=== PATIENT | male | born 1955 | race Caucasian/White ===

== ENCOUNTER 2018-03-26 08:37 | Inpatient (IN) | payer BC ==
[~2018-03-26 08:37] MED LIST: HEPARIN NA (PORCINE) 5,000 UNITS/ML 1ML VIAL SQ ONE
--- NOTE | 2018-03-26 09:25 | PDOC ---
History of Present Illness - General Chief Complaint: Pain Stated Complaint: RT LEG PAIN Time Seen by Provider: 03/26/18 09:01 History Source: Patient Exam Limitations: No Limitations - History of Present Illness Initial Comments: CHIEF COMPLAINT: 62 y/o afebrile male with PMH HTN and hypothyroidism c/o right lower extremity numbness today. HISTORY OF PRESENT ILLNESS: The patient states he had shoulder surgery 6 weeks ago. He has been going to and has been doing well. He states all weekend he 's been walking and has been fine. He states this morning he had a right thigh cramp and then his right lower leg became very cold and numb. He denies calf pain, fever, trauma to leg, redness/swelling/streaking to right LE, cough, hemoptysis, CP, SOB, recent airplane travel. Vital signs on arrival are notable for O2 sat of 96% on RA. REVIEW OF SYSTEMS: GENERAL/CONSTITUTIONAL: No fever/chills. No weakness. No weight change. HEAD, EYES, EARS, NOSE AND THROAT: No change in vision. No ear pain or discharge. No sore throat. CARDIOVASCULAR: No chest pain or shortness of breath. RESPIRATORY: No cough, wheezing, or hemoptysis. GASTROINTESTINAL: No nausea, vomiting, diarrhea. GENITOURINARY: No dysuria, frequency, or change in urination. MUSCULOSKELETAL: +right LE numbness. No neck or back pain. SKIN: No rash or easy bruising. NEUROLOGIC: No headache, vertigo, loss of consciousness, or loss of sensation. PHYSICAL EXAM: VITAL_SIGNS: within normal limits GENERAL_APPEARANCE: alert, cooperative, no obvious discomfort. MENTAL_STATUS: speech clear, oriented X 3, responds appropriately to questions. NEURO: motor intact and sensory intact in injured extremity. EXTREMITIES: right LE is cool as compared to left LE. Decreased sensation to right LE. No calf pain. Negative Alexander's sign b/l. NO erythema, warmth or streaking to affected extremity. SKIN: warm, dry, good color. Past History - Past Medical History Allergies/Adverse Reactions: Allergies Allergy/AdvReac Type Severity Reaction Status Date / Time No Known Allergies Allergy Verified 03/26/18 08:49 Home Medications: Ambulatory Orders Atorvastatin Ca [Lipitor] 20 mg PO HS 12/16/15 Levothyroxine [Synthroid -] 50 mcg PO DAILY 12/16/15 Aspirin 81 mg PO ASDIR 03/26/18 Cardiac Disorders: Yes (WPW) COPD: No Hypercholesterolemia: Yes Thyroid Disease: Yes (HYPOTHYROID) - Suicide/Smoking/Psychosocial Hx Smoking History: Current some day smoker Have you smoked in the past 12 months: Yes Cigars Per Day: 1 Information on smoking cessation initiated: No Hx Alcohol Use: Yes (SOCIAL) Drug/Substance Use Hx: No Substance Use Type: None *Physical Exam - Vital Signs Last Vital Signs Temp Pulse Resp BP Pulse Ox 97.8 F 84 19 158/113 96 03/26/18 08:49 03/26/18 08:49 03/26/18 08:49 03/26/18 08:49 03/26/18 08:49 ED Treatment Course - RADIOLOGY Radiology Studies Ordered: Category Date Time Status DUPLEX ART. LEGS- LIMITED US [US] Stat Ultrasound 03/26/18 09:06 Ordered DUPLEX VASCUL US-1 LEG [US] Stat Ultrasound 03/26/18 09:06 Ordered Medical Decision Making - Medical Decision Making A/P: 62 y/o male with possible blood clot or arterial occlusion to right LE. Plan is as follows: 1. Arterial doppler right LE 2. Venous doppler right LE Arterial doppler right LE IMPRESSION: Occlusion of multiple arteries of right LE Venous doppler right LE IMPRESSION: DVTs right LE Gave patient his results. Spoke with Dr. Sims and charge nurse Rosalia. Patient will be moved into bed 1 in Main ER for further work up and admission. *DC/Admit/Observation/Transfer Diagnosis at time of Disposition: Arterial occlusion DVT (deep venous thrombosis) Qualifiers: DVT location: lower extremity Affected thrombotic vein of extremity: unspecified vein of extremity Chronicity: acute Laterality: right Qualified Code (s): I82.401 - Acute embolism and thrombosis of unspecified deep veins of right lower extremity - Referrals Referrals: Mitesh Rodriguez MD, MD [Primary Care Provider] - - Patient Instructions - Post Discharge Activity
[2018-03-26] MEDS ORDERED: HEPARIN NA (PORCINE) 5,000 UNITS/ML 1ML VIAL IVPUSH ONE (11:22)
--- NOTE | 2018-03-26 11:22 | PDOC ---
History of Present Illness - General Chief Complaint: Pain Stated Complaint: RT LEG PAIN Time Seen by Provider: 03/26/18 09:01 History Source: Patient Exam Limitations: No Limitations - History of Present Illness Initial Comments: 03/26/18 11:42 62y M hx of htn, hypothyroidism, ?WPW vs afib (sees cardiology, not on a/c), s/ p R shoulder surgery in late january presents with complaint of RLE pain. Pt sates he was fine this weekend, this morning, aruond 7am, he was changing to go t therapy and felt somet ingling and a cramp like pain in his RLE. He tried to walk it off but the pain got worse. The pt notes he sometimes has some palpitations, but that is long standing, n orecent worsening. pt also notes for the past wek he has felt some LOPEZ when abby gup stairs, but attriubted it to being less active than usual since his surgery. Pt denies any current chest pain, sob, cough, hemoptysis, fever chlils, abd pain , back pain. No prior history of DVTs/PEs. Last PO intake was water for meds aroun d7am PMD: Lyo Past History - Past Medical History Allergies/Adverse Reactions: Allergies Allergy/AdvReac Type Severity Reaction Status Date / Time No Known Allergies Allergy Verified 03/26/18 08:49 Home Medications: Ambulatory Orders Atorvastatin Ca [Lipitor] 20 mg PO DAILY 12/16/15 Levothyroxine [Synthroid -] 50 mcg PO DAILY 12/16/15 Aspirin 81 mg PO ASDIR 03/26/18 Metoprolol Tartrate [Lopressor -] 50 mg PO BID 03/26/18 Cardiac Disorders: Yes (WPW) COPD: No Hypercholesterolemia: Yes Thyroid Disease: Yes (HYPOTHYROID) - Suicide/Smoking/Psychosocial Hx Smoking History: Current some day smoker Have you smoked in the past 12 months: Yes Cigars Per Day: 1 Information on smoking cessation initiated: No Hx Alcohol Use: Yes (SOCIAL) Drug/Substance Use Hx: No Substance Use Type: None Review of Systems - Review of Systems Able to Perform ROS?: Yes Comments:: 03/26/18 11:51 Constitutional - no reported Fever, Chills, HEENT: no reported vision changes, sore throat Respiratory: no reported cough, sob, hemoptysis Cardiac: no reported chest pain, palpitations, light headedness, leg swelling Abd/GI: no reported abd pain, nausea, vomiting, blood per rectum, melena, diarrhea : no reported dysuria, frequency, discharge Musculskelatal - +RLE pain no reported back pain, joint swelling skin - no reported bruising, erythema, rash neurological: no reported headache, numbness, focal weakness, tingling, ataxia, hematologic: no reported easy bruising, easy bleeding *Physical Exam - Vital Signs Last Vital Signs Temp Pulse Resp BP Pulse Ox 97.8 F 84 19 158/113 96 03/26/18 08:49 03/26/18 08:49 03/26/18 08:49 03/26/18 08:49 03/26/18 08:49 - Physical Exam Comments: 03/26/18 11:52 GENERAL: The patient is awake, alert, and fully oriented, Nontoxic - in no acute distress., Obese HEAD: Normocephalic, atraumatic. EYES: extraocular movements intact, sclera anicteric, conjunctiva clear. ENT: Normal voice, Moist mucous membranes. NECK: Normal range of motion, supple LUNGS: Breath sounds equal, clear to auscultation bilaterally. No wheezes, no rhonchi, no rales. HEART: irregularly irregular, rapid ABDOMEN: Soft, nontender, No guarding, no rebound. No CVA tenderness EXTREMITIES: RLE is slightly cool to touch, deminshed pulses, hyperemic, delayed cap refil, no calf tenderness, neg homans NEUROLOGICAL: No facial assymetry, Normal speech, PSYCH: Normal mood, normal affect. SKIN: Warm, Dry, normal turgor, Heart Score/ECG Review - ECG Impressions Comment:: 03/26/18 11:53 Twelve-lead EKG was performed and reviewed by me. Irregularly irergular RAte of 116 Impression atrial fibrillation with RVR ED Treatment Course - LABORATORY CBC & Chemistry Diagram: 03/30/18 05:30 03/30/18 05:30 - RADIOLOGY Radiology Studies Ordered: Category Date Time Status CHEST X-RAY PORTABLE* [RAD] Stat Radiology 03/26/18 11:20 Ordered Medical Decision Making - Medical Decision Making 03/26/18 11:53 62-year-old gentleman history of hypertension, hypothyroid, status post recent surgery upgrade from fast track for positive ultrasound noted for arterial as well as venous fibrosis, found to have A. fib on his EKG here. Will start heparin on the patient The case was discussed with Dr. Suggs requests CTA with runoff. The patient is NPO This patient admission for further management 03/26/18 12:36 case dw anabel Rojas, dr. suggs and dr rojas agree with amdssion for further management stable for tele Case discussed in detail with admitting physician including history, physical exam and ancillary studies. Admitting physician has assumed care for the patient, will follow all pending diagnostics and will complete the evaluation and treatment. 03/26/18 12:36 CRITICAL CARE DOCUMENTATION: I spent ~35 minutes of Critical Care time, excluding separately billable procedures, involving high complexity decision making to assess, manipulate and support vital system function(s) to treat single or multiple vital organ system failure and/or to prevent further life threatening deterioration of the patient' s condition. *DC/Admit/Observation/Transfer Diagnosis at time of Disposition: Arterial occlusion DVT (deep venous thrombosis) Qualifiers: DVT location: lower extremity Affected thrombotic vein of extremity: unspecified vein of extremity Chronicity: acute Laterality: right Qualified Code (s): I82.401 - Acute embolism and thrombosis of unspecified deep veins of right lower extremity Atrial fibrillation Qualifiers: Atrial fibrillation type: unspecified Qualified Code(s): I48.91 - Unspecified atrial fibrillation - Discharge Dispostion Condition at time of disposition: Guarded Decision to Admit order: Yes - Referrals - Patient Instructions - Post Discharge Activity
[2018-03-26 11:42] LABS: BASO % 0.8 % (0-2.0); HEMATOCRIT 39.6 % (35.4-49); HEMOGLOBIN 13.6 GM/dL (11.7-16.9); LYMPH % 9.6 % (8-40); MCH 31.9 pg (25.7-33.7); MCHC 34.3 g/dl (32.0-35.9); MEAN CELL VOLUME 92.8 fl (80-96); MEAN PLT VOLUME 8.6 fl (7.5-11.1); MONO % 7.1 % (3.8-10.2); NEUT % 81.5 % (42.8-82.8); PLATELET COUNT 186 K/MM3 (134-434); RBC 4.27 M/mm3 (4.00-5.60); RDW 13.7 % (11.9-15.9); WHITE BLOOD COUNT 10.4 K/mm3 (4.0-10.0)
[2018-03-26] MEDS ORDERED: HEPARIN INFUSION - 25,000 UNITS/500 ML INFUS.BAG IVPB ONE ×2 (11:47→21:19)
[2018-03-26] MEDS ORDERED: HEPARIN NA (PORCINE) 5,000 UNITS/ML 1ML VIAL ONE ×4 (11:47→19:37)
[2018-03-26] MEDS ORDERED: HEPARIN INFUSION - 25,000 UNITS/500 ML INFUS.BAG IVPB SCH ×2 (11:50→21:30)
[2018-03-26 11:54] LABS: INR 1.24 (0.82-1.09)
[2018-03-26 11:56] LABS: ACTIVATED PTT 27.1 SECONDS (25.2-36.5)
[2018-03-26 12:01] LABS: ALBUMIN 3.8 g/dl (3.4-5.0); ANION GAP 5 (8-16); BILIRUBIN,TOTAL 0.6 mg/dL (0.2-1.0); BLOOD UREA NITROGEN 17 mg/dL (7-18); CHLORIDE 105 mmol/L (98-107); CO2 29 mmol/L (21-32); CREATININE 1.2 mg/dL (0.7-1.3); GLUCOSE,RANDOM 111 mg/dL (74-106); POTASSIUM 4.7 mmol/L (3.5-5.1); SGOT/AST 21 U/L (15-37); SGPT/ALT 26 U/L (12-78); SODIUM 139 mmol/L (136-145); TOT PROT 8.1 g/dl (6.4-8.2)
[2018-03-26 12:02] LABS: ALK PHOS 96 U/L (45-117)
--- NOTE | 2018-03-26 12:11 | CON.CARD ---
Consult Consult Specialty:: cardio - History of Present Illness Chief Complaint: R leg pain History of Present Illness: 62 yo male here with pain and coldness in R foot since earlier today. noted above sx's suddenly today, progressively worsened. assctd numbness. also notes incr sob on stairs the past few days at home. no cp. no palpitations. PMH: afib obesity hypothyroidism - Alcohol/Substance Use Hx Alcohol Use: Yes (SOCIAL) - Smoking History Smoking history: Current some day smoker Have you smoked in the past 12 months: Yes Home Medications - Allergies Allergies/Adverse Reactions: Allergies Allergy/AdvReac Type Severity Reaction Status Date / Time No Known Allergies Allergy Verified 03/26/18 08:49 - Home Medications Home Medications: Ambulatory Orders Atorvastatin Ca [Lipitor] 20 mg PO DAILY 12/16/15 Levothyroxine [Synthroid -] 50 mcg PO DAILY 12/16/15 Aspirin 81 mg PO ASDIR 03/26/18 Metoprolol Tartrate [Lopressor -] 50 mg PO BID 03/26/18 Family Disease History - Family Disease History Family History: Denies (no known cmp) Review of Systems - Review of Systems Constitutional: denies: Chills, Fever Eyes: denies: Eye Pain HENT: denies: Nasal Congestion Neck: denies: Stiffness Cardiovascular: denies: Palpitations Respiratory: denies: Orthopnea, PND Gastrointestinal: denies: Diarrhea, Rectal Bleeding Genitourinary: denies: Burning, Hematuria Musculoskeletal: denies: Muscle Pain Integumentary: denies: Rash Neurological: denies: Numbness, Seizure, Syncope Endocrine: denies: Excessive Sweating Hematology/Lymphatic: denies: Excessive Bleeding Vital Signs: Vital Signs Temperature 97.8 F 03/26/18 08:49 Pulse Rate 84 03/26/18 08:49 Respiratory Rate 19 03/26/18 08:49 Blood Pressure 158/113 03/26/18 08:49 O2 Sat by Pulse Oximetry (%) 96 03/26/18 08:49 Constitutional: Yes: No Distress, Obese Eyes: No: Sclera Icterus HENT: No: Nasal Congestion Neck: No: Decreased ROM Respiratory: Yes: CTA Bilaterally. No: Accessory Muscle Use, Rales, Wheezes Gastrointestinal: Yes: Normal Bowel Sounds. No: Distention, Hepatomegaly, Palpable Mass, Tenderness Cardiovascular: Yes: Regular Rate and Rhythm JVD: No Carotid Bruit: No PMI: Non-Displaced Heart Sounds: Yes: S1, S2. No: Gallop Murmur: No: Systolic Murmur, Diastolic Murmur Musculoskeletal: Yes: Other (No kyphosis) Extremities: Yes: Cold (R). No: Cool, Cyanosis Edema: No Peripheral Pulses: 0 Right Dorsalis Pedis, 2+ Left Carotid, 2+ Right Carotid, 2 + Left Doralis Pedis Integumentary: No: Jaundice Neurological: Yes: Alert, Oriented (x3) Psychiatric: No: Agitated - Other Data Labs, Other Data: CBC, BMP 03/26/18 11:20 INR, PTT INR 1.24 (0.82-1.09) H 03/26/18 11:27 Assessment/Plan Echo 02/12: afib; TDS; nl LV size and LVSF (EF at least 55%). RV tds: ? mild dilation, can't assess RVSF. ? nl LA size. valves WNL. mildly dilated ao root ( 3.9 cm) ECG: afib, no path q's; NSTWAs septal leads persistent AF: -poor office f/u in past 2 yrs -remote h/o ? EP study vs ? cardioversion at [facility]--records unable to be obtained by me. pt reports ? WPW history though no EKG evidence ever -EP study ([facility]) repeated--no accessory pathway. no arrhythmia noted on event monitor at that time -meds adjusted per [facility] EP rec.s (longstanding flecainide stopped). -pt presented in rapid AF to office couple of yrs ago, metoprolol increased-- did not f/u -presented for preop eval 01/12 with rapid AF--metopr succinate increased 50 qd to 50 bid -echo with preserved LVEF at that time -pt strongly denied any h/o HTN and bp's had been normal on metoprolol only, hence calculated CHADS VASC was 0--ASA 81 rec'd. -he had not been taking ASA since original rx couple yrs ago--held 01/12 when he had upcoming ortho surgery scheduled -now presenting with acute RLE arterial occlusion--to start AC ([facility] gtt), awaiting vascular eval--presumably this is atheroembolic event, will f/u angiographic findings but doubt severe atherosclerotic process as the etiology here -HRs reasonable (mildly rapid) in ER--cont home metoprolol, observe HR trend DVT: -also with distal SFV and popliteal vein thrombus on duplex -? unprovoked (same day shoulder surgery 02/12) -AC as above -? will need genetic hypercoag w/u as outpt, will defer to heme (will not change mgmt given need for lifelong AC but relevant for family member screening) SOB: -new sob on stairs x2-3 days -r/o PE in pt with new DVT -starting UFH gtt -d/w'd dr zaman in ER--he will order CTA PE protocol -ecg non-ischemic -check troponin, BNP hypothyroidism: -TSH elevated 2015 with me, pt never f/u'd with PMD -was severely elevated on preop labs 01/12--started synthroid with dr schilling -per hospitalist
[2018-03-26] MEDS ORDERED: metoPROLOL SUCCINATE 25 MG TAB.SR.24H (FP) PO SCH ×2 (12:15→22:00)
[2018-03-26 12:56] LABS: N-TERMINAL BNP 2810.58 pg/ml (5-125)
[2018-03-26] MEDS ORDERED: ACETAMINOPHEN 325 MG TABLET (FP) PO PRN ×4 (14:07→22:04)
[2018-03-26] MEDS ORDERED: metoPROLOL SUCCINATE 25 MG TAB.SR.24H (FP) PO ONE (15:20)
--- NOTE | 2018-03-26 16:04 | EKG ---
Test Reason : Blood Pressure : / mmHG Vent. Rate : 116 BPM Atrial Rate : 122 BPM P-R Int : 000 ms QRS Dur : 072 ms QT Int : 300 ms P-R-T Axes : 000 046 016 degrees QTc Int : 417 ms ATRIAL FIBRILLATION WITH RAPID VENTRICULAR RESPONSE LOW VOLTAGE QRS ABNORMAL ECG WHEN COMPARED WITH ECG OF 22-SEP-2008 11:22, ATRIAL FIBRILLATION HAS REPLACED SINUS RHYTHM VENT. RATE HAS INCREASED BY 60 BPM Confirmed by LAURA LOPEZ, RICKEY ([id number]) on 03/26/2018 4:03:37 PM Referred By: Confirmed By:RICKEY SANCHEZ MD
[2018-03-26] MEDS ORDERED: MIDAZOLAM HCL 2 MG/2 ML SINGLE DOSE VIAL ONE (18:19)
[2018-03-26] MEDS ORDERED: PROPOFOL 20 ML ONE (18:19)
[2018-03-26] MEDS ORDERED: ESMOLOL HCL 100,000 MCG/10 ML VIAL ONE (18:41)
[2018-03-26] MEDS ORDERED: ceFAZolin SODIUM 1 GM VIAL ONE (18:55)
[2018-03-26] MEDS ORDERED: ceFAZolin SODIUM 1 GM VIAL IVPB ONE (18:58)
[2018-03-26] MEDS ORDERED: METOPROLOL TARTRATE 5 MG/5 ML VIAL ONE (19:04)
[2018-03-26] MEDS ORDERED: PHENYLEPHRINE HCL 10 MG/1 ML SINGLE DOSE VIAL ONE (19:21)
[2018-03-26] MEDS ORDERED: POVIDONE-IODINE OINTMENT 10% - 28.4 GM TUBE ONE (21:07)
--- NOTE | 2018-03-26 21:21 | OP ---
Operative Note - Note: Operative Date: 03/26/18 Pre-Operative Diagnosis: RLE ischemia Operation: Open thrombectomy right iliac, sfa, Deep profunda artery , with angiogram of right lower extremity. Findings: Embolus removed. Post-Operative Diagnosis: Same as Pre-op Surgeon: Rafi Byrnes Anesthesia: General Estimated Blood Loss (mls): 600 Operative Report Dictated: Yes
[2018-03-26] MEDS ORDERED: HEPARIN NA (PORCINE) 5,000 UNITS/ML 1ML VIAL IVPUSH PRN ×2 (21:25)
[2018-03-26] MEDS: HEPARIN NA (PORCINE) 5,000 UNITS/ML 1ML VIAL IVPUSH PRN ×2 (21:30→23:22)
[2018-03-26] MEDS ORDERED: ONDANSETRON 4 MG/2 ML VIAL IVPUSH PRN (21:32)
--- NOTE | 2018-03-26 21:37 | PROC ---
Procedure Note Procedure: Anesthesiology Arterial Line Insertion Indication: hemodynamic monitoring Procedure performed in OR under [facility]. EtOH prep to right wrist area. Radial pulse palpated. #20 Arrow arterial catheter inserted via Seldinger technique with no resistance. Pulsatile bloodflow noted prior to transducer attachment.Catheter transduced; waveform present but erratic secondary to atrial fibrillation. Dressing placed. No hematoma or other apparent complications noted.
[2018-03-26] MEDS ORDERED: ATORVASTATIN CA 20 MG TABLET (FP) PO SCH (22:00)
[2018-03-26] MEDS ORDERED: CHLORHEXIDINE GLUCONATE 4% CLEANSER FOR DECOLONIZATION TP SCH (22:45)
--- NOTE | 2018-03-26 23:00 | CONSULT ---
Consultation: REQUESTING PROVIDER: CONSULT REQUEST: We have been asked to medically evaluate this patient for ( specify). HISTORY OF PRESENT ILLNESS: The patient is a 62 year old male with a PMH of A.Fib, WPW, hypothyroidism, DVT , morbid obesity, presented to the hospital complaining of severe right lower extremity that started early this morning. The patient states that the pain was 10/10 in severity, cramping in nature, located in the front of his right thigh. His right foot started to feel numb. He tried to walk it out without improvement and decided to come to ER. He was found to have thrombi in the distal right [employer] extending to the ostia of SFA and DFA, occlusive thrombi seen in right TP trunk with occlusions of the right peroneal artery and posterior tibial arteries followed by short segmental reconstitution with single vessel runoff to the foot provided. The patient had open embolectomy with angiogram of right lower extremity. He lost 600 cc of blood, given 1 unit of blood, hemodynamically stable admitted to ICU for monitoring. When I saw the patient, he didn't have any complaints, denied pain, chest pain, SOB. He admitted to have dyspnia on exertion for the past 5 days. PMH: as above PSH: right hip replacement 2008, left shoulder repair 2017 SH: 1 cigar every few months, 1 alcoholic drink everyday, no drugs. 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 REVIEW OF SYSTEMS: CONSTITUTIONAL: Absent: fever, chills, diaphoresis, generalized weakness, malaise, loss of appetite, weight change HEENT: Absent: nasal congestion, difficulty swallowing, mouth swelling, CARDIOVASCULAR: Absent: chest pain, syncope, palpitations, irregular heart rate, lightheadedness , peripheral edema RESPIRATORY: dyspnea with exertion Absent: cough, orthopnea, wheezing, stridor, hemoptysis GASTROINTESTINAL: Absent: abdominal pain, abdominal distension, nausea, vomiting, diarrhea, constipation GENITOURINARY: Absent: dysuria, frequency, urgency, hesitancy, hematuria MUSCULOSKELETAL: Absent: myalgia, arthralgia, joint swelling, back pain, neck pain ENDOCRINE: Absent: unexplained weight gain, unexplained weight loss, NEUROLOGIC: Absent: headache, focal weakness or paresthesias, dizziness PSYCHIATRIC: Absent: anxiety, depression PHYSICAL EXAMINATION Vital Signs - 24 hr 03/26/18 03/26/18 03/26/18 08:49 12:36 14:40 Temperature 97.8 F Pulse Rate 84 Pulse Rate [ 152 H 116 H Left] Respiratory 19 18 Rate Blood Pressure 158/113 Blood Pressure 112/90 [Left Arm] O2 Sat by Pulse 96 100 Oximetry (%) 03/26/18 03/26/18 16:10 18:00 Temperature 98.5 F 98.5 F Pulse Rate 79 100 H Pulse Rate [ Left] Respiratory 18 18 Rate Blood Pressure 126/71 124/84 Blood Pressure [Left Arm] O2 Sat by Pulse 97 Oximetry (%) GENERAL: Awake, alert, and fully oriented, in no acute distress, lying comfortably in bed. HEAD: Normal with no signs of trauma. EYES: Pupils equal, round and reactive to light, extraocular movements intact, sclera anicteric, conjunctiva clear. EARS, NOSE, THROAT: Oropharynx clear without exudates. Moist mucous membranes. NECK: Normal range of motion, supple without lymphadenopathy, JVD, or masses. LUNGS: Breath sounds equal, clear to auscultation bilaterally. No wheezes, and no crackles. No accessory muscle use. HEART: Irregular rate and rhythm, normal S1 and S2 without murmur, rub or gallop. ABDOMEN: Obese, soft, nontender, not distended, normoactive bowel sounds, no guarding, no rebound, no masses. No hepatomegaly or splenomegaly. MUSCULOSKELETAL: Normal range of motion at all joints. No bony deformities or tenderness. UPPER EXTREMITIES: 2+ pulses, warm, well-perfused. No cyanosis. No clubbing. Cap refill <2 seconds. No peripheral edema. LOWER EXTREMITIES: 2+ pulses on left (DP, PT), dopplerable on right side( DP, PT ), warm left foot, cool right foot. No peripheral edema. NEUROLOGICAL: No facial asymmetry, no slurred speech, motor 5/5. PSYCHIATRIC: Cooperative. Good eye contact. Appropriate mood and affect. SKIN: Warm, dry, normal turgor, no rashes, 8 cm scar in the anterior of his left shoulder, well healing. Laboratory Results - last 24 hr 03/26/18 03/26/18 03/26/18 11:20 11:20 11:20 WBC 10.4 H RBC 4.27 Hgb 13.6 Hct 39.6 MCV 92.8 MCH 31.9 MCHC 34.3 RDW 13.7 Plt Count 186 D MPV 8.6 Absolute Neuts (auto) 8.5 Neutrophils % 81.5 Lymphocytes % 9.6 D Monocytes % 7.1 Eosinophils % 1.0 Basophils % 0.8 Nucleated RBC % 0 PT with INR INR PTT (Actin FS) Sodium 139 Potassium 4.7 Chloride 105 Carbon Dioxide 29 Anion Gap 5 L BUN 17 Creatinine 1.2 Creat Clearance w eGFR > 60 Random Glucose 111 H Calcium 9.0 Total Bilirubin 0.6 AST 21 ALT 26 D Alkaline Phosphatase 96 Troponin I < 0.02 B-Natriuretic Peptide 2810.58 H Total Protein 8.1 Albumin 3.8 TSH 1.30 Blood Type A POSITIVE Antibody Screen Negative Crossmatch See Detail 03/26/18 03/26/18 03/26/18 11:20 11:27 18:30 WBC RBC Hgb Hct MCV MCH MCHC RDW Plt Count MPV Absolute Neuts (auto) Neutrophils % Lymphocytes % Monocytes % Eosinophils % Basophils % Nucleated RBC % PT with INR 14.00 H INR 1.24 H PTT (Actin FS) Cancelled 27.1 32.3 Sodium Potassium Chloride Carbon Dioxide Anion Gap BUN Creatinine Creat Clearance w eGFR Random Glucose Calcium Total Bilirubin AST ALT Alkaline Phosphatase Troponin I B-Natriuretic Peptide Total Protein Albumin TSH Blood Type Antibody Screen Crossmatch Active Medications Generic Name Dose Route Start Last Admin Trade Name Freq PRN Reason Stop Dose Admin Acetaminophen 650 mg 03/26/18 22:04 Tylenol - PO Q6H PRN FEVER/PAIN SCALE 1-5 Aspirin 81 mg 03/27/18 10:00 Asa - PO DAILY [facility] Atorvastatin Calcium 20 mg 03/27/18 22:00 Lipitor - PO [facility] Chlorhexidine Gluconate 1 applic 03/26/18 22:45 Hibiclens For Decolonization - TP [facility] Fentanyl 50 mcg 03/26/18 21:32 Sublimaze Injection - IVPUSH [id number] PRN PAIN-PACU ORDER X 4 DOSES ONLY Heparin Sodium (Porcine) 5,000 unit 03/26/18 21:25 Heparin - IVPUSH PRN PRN Heparin Heparin Sodium (Porcine) 1,000 unit 03/26/18 21:25 Heparin - IVPUSH PRN PRN Heparin Heparin Sodium/Dextrose 25,000 units in 500 mls @ 20 mls/hr 03/26/18 21:30 Heparin Infusion - IVPB TITR [facility] Protocol 1,000 UNITS/HR Levothyroxine Sodium 50 mcg 03/27/18 07:00 Synthroid - PO DAILY@0700 [facility] Metoprolol Succinate 75 mg 03/27/18 10:00 Toprol Xl - PO BID [facility] Mupirocin 1 applic 03/26/18 22:45 Bactroban Ointment (For Decolonization) - NS 03/31/18 22:44 BID [facility] Ondansetron HCl 4 mg 03/26/18 21:32 Zofran Injection IVPUSH Q6H PRN NAUSEA AND/OR VOMITING ASSESSMENT/PLAN: The patient is a 62 year old male with a PMH of A.Fib, WPW, hypothyroidism, DVT in January? presented to the hospital complaining of severe right lower extremity that started early this morning. He underwent open thrombectomy of right iliac, sfa, deep profunda artery, with angiogram of right lower extremity, given 1 u of PRBC. Admitted to ICU for monitoring S/p open embolectomy of RLE A.Fib Hypothyroidism Morbid obesity Plan: -as per surgery continue heparin drip, f/u APTT, CBC, stool occult -monitor pulses in right lower extremity Q4h overnight -finishing 1 unit of PRBC, will check CBC in AM -continue home medications; Toprol Xl, ASA and Synthroid, Lipitor -Tylenol for pain -f/u cardiology recommendations Dispo: We will continue to follow the patient. Thank you for this consultative opportunity. Problem List - Problems (1) Arterial occlusion Code(s): I70.90 - UNSPECIFIED ATHEROSCLEROSIS (2) Atrial fibrillation Code(s): I48.91 - UNSPECIFIED ATRIAL FIBRILLATION Qualifiers: Atrial fibrillation type: unspecified Qualified Code(s): I48.91 - Unspecified atrial fibrillation (3) DVT (deep venous thrombosis) Code(s): I82.409 - ACUTE EMBOLISM AND THOMBOS UNSP DEEP VN UNSP LOWER EXTREMITY Qualifiers: DVT location: lower extremity Affected thrombotic vein of extremity: unspecified vein of extremity Chronicity: acute Laterality: right Qualified Code(s): I82.401 - Acute embolism and thrombosis of unspecified deep veins of right lower extremity Visit type - Emergency Visit Emergency Visit: Yes ED Registration Date: 03/26/18 Care time: The patient presented to the Emergency Department on the above date and was hospitalized for further evaluation of their emergent condition. - New Patient This patient is new to me today: Yes Date on this admission: 03/27/18 - Critical Care Critical Care patient: Yes Total Critical Care Time (in minutes): 40 Critical Care Statement: The care of this patient involved high complexity decision making to prevent further life threatening deterioration of the patient 's condition and/or to evaluate & treat vital organ system(s) failure or risk of failure.
[2018-03-26] MEDS: MUPIROCIN 2% TOPICAL OINTMENT FOR DECOLONIZATION NS SCH (23:36)
[2018-03-27] MEDS: HEPARIN NA (PORCINE) 5,000 UNITS/ML 1ML VIAL IVPUSH PRN ×2 (03:50→22:03)
[2018-03-27 06:10] LABS: HEMATOCRIT 33.1 % (35.4-49); HEMOGLOBIN 11.4 GM/dL (11.7-16.9); MCH 31.2 pg (25.7-33.7); MCHC 34.5 g/dl (32.0-35.9); MEAN CELL VOLUME 90.5 fl (80-96); PLATELET COUNT 167 K/MM3 (134-434); RBC 3.66 M/mm3 (4.00-5.60); RDW 14.4 % (11.9-15.9); WHITE BLOOD COUNT 11.6 K/mm3 (4.0-10.0)
[2018-03-27 06:32] LABS: ALBUMIN 2.9 g/dl (3.4-5.0); ANION GAP 8 (8-16); BLOOD UREA NITROGEN 13 mg/dL (7-18); CALCIUM 8.1 mg/dL (8.5-10.1); CHLORIDE 109 mmol/L (98-107); CO2 26 mmol/L (21-32); CREATININE 0.9 mg/dL (0.7-1.3); GLUCOSE,RANDOM 113 mg/dL (74-106); POTASSIUM 4.2 mmol/L (3.5-5.1); SGOT/AST 14 U/L (15-37); SGPT/ALT 19 U/L (12-78); SODIUM 143 mmol/L (136-145); TOT PROT 6.4 g/dl (6.4-8.2)
[2018-03-27 06:33] LABS: ALK PHOS 76 U/L (45-117)
[2018-03-27] MEDS ORDERED: LEVOTHYROXINE NA 50 MCG TABLET (FP) PO SCH ×2 (07:00)
--- NOTE | 2018-03-27 08:13 | PN ---
Progress Note, Physician Chief Complaint: day #1 s/p thropmbectomy - Current Medication List Current Medications: Active Medications Acetaminophen (Tylenol -) 650 mg PO Q6H PRN PRN Reason: FEVER/PAIN SCALE 1-5 Aspirin (Asa -) 81 mg PO DAILY [facility] Atorvastatin Calcium (Lipitor -) 20 mg PO HS [facility] Chlorhexidine Gluconate (Hibiclens For Decolonization -) 1 applic TP HS [facility] Last Admin: 03/26/18 23:36 Dose: 1 applic Heparin Sodium (Porcine) (Heparin -) 5,000 unit IVPUSH PRN PRN PRN Reason: Heparin Last Admin: 03/27/18 03:50 Dose: 5,000 unit Heparin Sodium (Porcine) (Heparin -) 1,000 unit IVPUSH PRN PRN PRN Reason: Heparin Heparin Sodium/Dextrose (Heparin Infusion -) 25,000 units in 500 mls @ 20 mls/ hr IVPB TITR [facility]; Protocol Last Titration: 03/27/18 03:51 Dose: 1,150 units/hr, 23 mls/hr Levothyroxine Sodium (Synthroid -) 50 mcg PO DAILY@0700 [facility] Last Admin: 03/27/18 06:27 Dose: 50 mcg Metoprolol Succinate (Toprol Xl -) 75 mg PO BID [facility] Mupirocin (Bactroban Ointment (For Decolonization) -) 1 applic NS BID [facility] Stop: 03/31/18 22:44 Last Admin: 03/26/18 23:36 Dose: 1 applic - Objective Vital Signs: Vital Signs Temperature 98.4 F 03/27/18 06:00 Pulse Rate 98 H 03/27/18 06:00 Respiratory Rate 18 03/27/18 06:00 Blood Pressure 92/58 03/27/18 06:00 O2 Sat by Pulse Oximetry (%) 96 03/26/18 23:00 Labs: CBC, BMP 03/27/18 05:30 03/27/18 05:30 INR, PTT INR 1.24 (0.82-1.09) H 03/26/18 11:27 Assessment/Plan doing well s/p thrombectomy for ischemic extremity. Minimal pain today - no anesthetic issues.
--- NOTE | 2018-03-27 08:39 | PN ---
Progress Note (short form) - Note Progress Note: surgery POD#1 Open thrombectomy right iliac, sfa, Deep profunda artery , with angiogram of right lower extremity. Patient seen and examined at bedside with no complaints. Patient states his pain is minimal and much improved. He denies any CP, SOB, fever, or chills. Vital Signs Temp 98.4 F 03/27/18 06:00 Pulse 106 H 03/27/18 08:00 Resp 20 03/27/18 08:00 BP 100/67 03/27/18 08:00 Pulse Ox 100 03/27/18 08:00 Intake & Output 03/26/18 03/26/18 03/27/18 11:59 23:59 11:59 Intake Total 1940 249 Output Total 1200 600 Balance 740 -351 Weight 300 lb 300 lb 301 lb 3 oz Intake: IV 1450 149 HEPARIN INFUSION - 25,000 60 units In 500 ml @ 1,000 UNITS/HR 20 mls/hr IVPB TITR [facility] Rx#:[id number] HEPARIN INFUSION - 25,000 40 149 units In 500 ml @ 1,000 UNITS/HR 20 mls/hr IVPB TITR [facility] Rx#:[id number] Oral 440 100 Blood Product 50 Output: Urine 600 600 Das 600 600 Estimated Blood Loss 600 Other: Voiding Method Indwelling Catheter Height 5 ft 9 in 5 ft 9 in Body Mass Index (BMI) 44.3 44.3 Weight Measurement Method Built in [facility] Weight Measurement Method Est/Stated by Patient CBC, BMP 03/27/18 05:30 03/27/18 05:30 PE: A&O x3, NAD unlabored resp on 2L NC right LE: groin incision c/d/i with mahesh insitu, surrounding tissue intact with no erythema, or edema. No evidence of collection or hematoma thigh is soft supple and nontender, leg is warm to the touch with soft compartments and +2 DP pulses Left LE compartments soft supple and non-tender, warm to touch with +2 DP pulse Problem List - Problems (1) Arterial occlusion Assessment/Plan: POD#1 thrombectomy doing well. 1) DVT prophylaxis 2) OOB as tolerated 3) Pain control 4) Plan for prison anticoagulation per cards Evaluation and plan discussed with Dr Byrnes. Code(s): I70.90 - UNSPECIFIED ATHEROSCLEROSIS
--- NOTE | 2018-03-27 09:06 | PN ---
Progress Note (short form) - Note Progress Note: s: feels well, leg pain improved, feels only at incision when moving. no sob but has not been up much o: Vital Signs: Current Medications Generic Name Dose Route Start Last Admin Trade Name Freq PRN Reason Stop Dose Admin Acetaminophen 650 mg 03/26/18 22:04 Tylenol - PO Q6H PRN FEVER/PAIN SCALE 1-5 Aspirin 81 mg 03/27/18 10:00 Asa - PO DAILY [facility] Atorvastatin Calcium 20 mg 03/27/18 22:00 Lipitor - PO HS [facility] Chlorhexidine Gluconate 1 applic 03/26/18 22:45 03/26/18 23:36 Hibiclens For Decolonization - TP 1 applic HS [facility] Administration Heparin Sodium (Porcine) 5,000 unit 03/26/18 21:25 03/27/18 03:50 Heparin - IVPUSH 5,000 unit PRN PRN Administration Heparin Heparin Sodium (Porcine) 1,000 unit 03/26/18 21:25 Heparin - IVPUSH PRN PRN Heparin Heparin Sodium/Dextrose 25,000 units in 500 mls @ 20 mls/hr 03/26/18 21:30 03:51 Heparin Infusion - IVPB 1,150 units/hr TITR [facility] 23 mls/hr Titration Protocol 1,000 UNITS/HR Levothyroxine Sodium 50 mcg 03/27/18 07:00 03/27/18 06:27 Synthroid - PO 50 mcg DAILY@0700 [facility] Administration Metoprolol Succinate 75 mg 03/27/18 10:00 Toprol Xl - PO BID [facility] Mupirocin 1 applic 03/26/18 22:45 03/26/18 23:36 Bactroban Ointment (For Decolonization) - NS 03/31/18 22:44 1 applic BID [facility] Administration Constitutional: Yes: No Distress, Obese Eyes: No: Sclera Icterus HENT: No: Nasal Congestion Neck: No: Decreased ROM Respiratory: Yes: CTA Bilaterally. No: Accessory Muscle Use, Rales, Wheezes Gastrointestinal: Yes: Normal Bowel Sounds. No: Distention, Hepatomegaly, Palpable Mass, Tenderness Cardiovascular: Yes: Regular Rate and Rhythm JVD: No Carotid Bruit: No PMI: Non-Displaced Heart Sounds: Yes: S1, S2. No: Gallop Murmur: No: Systolic Murmur, Diastolic Murmur Musculoskeletal: Yes: Other (No kyphosis) Extremities: Yes: Cold (R). No: Cool, Cyanosis Edema: No Peripheral Pulses: 0 Right Dorsalis Pedis, 2+ Left Carotid, 2+ Right Carotid, 2 + Left Doralis Pedis Integumentary: No: Jaundice Neurological: Yes: Alert, Oriented (x3) Psychiatric: No: Agitated Assessment/Plan Echo 02/12: afib; TDS; nl LV size and LVSF (EF at least 55%). RV tds: ? mild dilation, can't assess RVSF. ? nl LA size. valves WNL. mildly dilated ao root ( 3.9 cm) ECG: afib, no path q's; NSTWAs septal leads persistent AF: - had not been on AC at home, poor follow up, now on heparin gtt and would start NOAC at discharge for AF and DVT if no contraindication - s/p open thrombectomy of R iliac, SFA, deep profunda, and angiogram and is on heparin gtt, likely related to atheroembolic event from afib - metoprolol was increased to 75 mg BID for improved rate control DVT: -also with distal SFV and popliteal vein thrombus on duplex, recent shoulder surgery, on heparin gtt as above -? will need genetic hypercoag w/u as outpt, will defer to heme (will not change mgmt given need for lifelong AC but relevant for family member screening) SOB: -new sob on stairs x2-3 days prior to admission -PE on differential, deferring CTA PE protocol given resp status stable, on heparin gtt hypothyroidism: - on synthroid, manage per primary team
[2018-03-27] MEDS: MUPIROCIN 2% TOPICAL OINTMENT FOR DECOLONIZATION NS SCH (09:32)
[2018-03-27] MEDS ORDERED: metoPROLOL SUCCINATE 25 MG TAB.SR.24H (FP) PO SCH (10:00)
[2018-03-27] MEDS ORDERED: ASPIRIN 81 MG CHEWABLE TABLETS PO SCH ×2 (10:00)
--- NOTE | 2018-03-27 11:25 | HP ---
Admitting History and Physical - Admission Chief Complaint: leg pain History of Present Illness: CHIEF COMPLAINT: 62 y/o afebrile male with PMH HTN and hypothyroidism c/o right lower extremity numbness today. HISTORY OF PRESENT ILLNESS: The patient states he had shoulder surgery 6 weeks ago. He has been going to PT and has been doing well. He states all weekend he 's been walking and has been fine. He states this morning he had a right thigh cramp and then his right lower leg became very cold and numb. He denies calf pain, fever, trauma to leg, redness/swelling/streaking to right LE, cough, hemoptysis, CP, SOB, recent airplane travel. - Smoking History Smoking history: Current some day smoker Have you smoked in the past 12 months: Yes - Alcohol/Substance Use Hx Alcohol Use: Yes (SOCIAL) Home Medications - Allergies Allergies/Adverse Reactions: Allergies Allergy/AdvReac Type Severity Reaction Status Date / Time No Known Allergies Allergy Verified 03/26/18 08:49 - Home Medications Home Medications: Ambulatory Orders Atorvastatin Ca [Lipitor] 20 mg PO DAILY 12/16/15 Levothyroxine [Synthroid -] 50 mcg PO DAILY 12/16/15 Aspirin 81 mg PO ASDIR 03/26/18 Metoprolol Tartrate [Lopressor -] 50 mg PO BID 03/26/18 Physical Examination Vital Signs: Vital Signs Temperature 98.1 F 03/27/18 10:00 Pulse Rate 102 H 03/27/18 10:00 Respiratory Rate 20 03/27/18 10:00 Blood Pressure 92/61 03/27/18 10:00 O2 Sat by Pulse Oximetry (%) 100 03/27/18 08:00 Constitutional: Yes: Calm Cardiovascular: Yes: Pulse Irregular, S1, S2 Respiratory: Yes: CTA Bilaterally Gastrointestinal: Yes: Normal Bowel Sounds, Soft Renal/: Yes: Das Present Extremities: Yes: Other (DP palpable right groin examined) Neurological: Yes: Alert, Oriented Labs: CBC, BMP 03/27/18 05:30 03/27/18 05:30 Imaging - Results Ultrasound: Report Reviewed (DVT In superficial popliteal and femoral veins arterial duplex findings suspicious of right common femoral superficial femoral and posterior tibial artery occulsion) Other: Report Reviewed (large non calicified thrombus in right common femoral artery) Problem List - Problems (1) Arterial occlusion Assessment/Plan: - Note: Operative Date: 03/26/18 Pre-Operative Diagnosis: RLE ischemia Operation: Open thrombectomy right iliac, sfa, Deep profunda artery , with angiogram of right lower extremity. Findings: Embolus removed. Post-Operative Diagnosis: Same as Pre-op Surgeon: Rafi Byrnes Anesthesia: General Estimated Blood Loss (mls): 600 Operative Report Dictated: Yes heparin drip Code(s): I70.90 - UNSPECIFIED ATHEROSCLEROSIS (2) Atrial fibrillation Assessment/Plan: heparin drip metoprolol Code(s): I48.91 - UNSPECIFIED ATRIAL FIBRILLATION Qualifiers: Atrial fibrillation type: unspecified Qualified Code(s): I48.91 - Unspecified atrial fibrillation (3) Hypothyroid Assessment/Plan: on synthroid Code(s): E03.9 - HYPOTHYROIDISM, UNSPECIFIED (4) DVT (deep venous thrombosis) Assessment/Plan: on heparin drip for now will need hypercoaguable work up as outpatient with heme Code(s): I82.409 - ACUTE EMBOLISM AND THOMBOS UNSP DEEP VN UNSP LOWER EXTREMITY Qualifiers: DVT location: lower extremity Affected thrombotic vein of extremity: unspecified vein of extremity Chronicity: acute Laterality: right Qualified Code(s): I82.401 - Acute embolism and thrombosis of unspecified deep veins of right lower extremity
--- NOTE | 2018-03-27 12:04 | OP ---
DATE OF OPERATION: 03/26/2018 PREOPERATIVE DIAGNOSIS: Right lower extremity ischemia. POSTOPERATIVE DIAGNOSIS: Right lower extremity ischemia. PROCEDURE: Open thrombectomy, right iliac artery, right superficial femoral artery, right profunda artery with angiogram of right lower extremity. SURGEON: Rafi Layton DO ANESTHESIA: General. BLOOD LOSS: 600. The patient is a 62-year-old male who comes in in atrial fibrillation to the emergency room with a 5-hour history of right lower extremity pain and with numbness. He had an arterial ultrasound performed, showing no flow in the common femoral artery and the SFA. We then got a CTA, showing that he has clot in his right common femoral artery and right profunda going into the right superficial femoral artery. At this point, it was decided that he would need open thrombectomy. Patient was consented for the procedure, understanding all risks, benefits, and alternatives, then taken to the operating room. Once in the operating room, he was laid on the operative table in supine manner, and he was administered general anesthesia. Thereafter, the areas of the right and left groin were prepped and draped in a sterile surgical manner. The right lower extremity was prepped and draped in a sterile surgical manner as well. Under ultrasound guidance, we were able to visualize the common femoral artery bifurcation on the right side, and that was marked. An incision was drawn over the bifurcation. We then went ahead and used a number-15 blade, and we made a subcentimeter incision. Bovie electrocautery used to control hemostasis, and we would use Bovie electrocautery again through all the subcutaneous tissue and get down to the femoral sheath. Once we got down to the femoral sheath, the femoral sheath was dissected anteriorly and posteriorly, and we were able to dissect out our superficial femoral artery, the profunda, and the common femoral artery. Vessel loops were placed around each to gain control. Next, 5000 units of IV heparin were administered to the patient. We then went ahead and used a number-11 blade and made a transverse incision on the right common femoral artery. We then went ahead and used a number 4 Obdulio and we were able to place the Obdulio into the SFA and clot was removed. Two passes were made in that manner. There was significant clot in the common femoral artery as well, which was then removed using forceps. We then went ahead and placed our Obdulio catheter into the profunda artery and we made 2 passes and significant clot was removed. There was good backbleeding now from the SFA and the deep profunda artery. We then went ahead and opened our inflow and significant clot was removed and there was good flow from the iliac artery coming down now. The clot was removed and sent down to Pathology. At this point, there was no more clot visualized or could be embolectomized. At this point, we used 6-0 Prolene double arm, and we closed the artery in a running fashion. Once the artery was closed, we opened the SFA and the profunda first, then the iliac artery. We then placed a butterfly needle into the common femoral artery and shot an angiogram of the right lower extremity, showing that the common femoral artery, the profunda, and the SFA were patent. Popliteal artery was patent, and patient has 1-vessel runoff going into the anterior tibial artery which goes all the way down into the foot. At this point, we irrigated the wound copiously. Surgicel was placed. Next, 3-0 Vicryl was used in the subcutaneous tissue, was approximated in an interrupted manner, and the skin was closed with skin mahesh. Then 4x4 Tegaderm was placed. The patient tolerated the procedure with no complication. Patient was transferred to the PACU in stable condition, where he had a dopplerable and palpable DP pulse. Patient was now started on IV heparin and will be bridged to Coumadin for his atrial fibrillation. Total blood loss: 600 mL. RAFI LAYTON DO NP/[id number]
--- NOTE | 2018-03-27 13:32 | PN ---
Physical Exam: SUBJECTIVE: Patient seen and examined. no acute events overnight. patient states he is feeling much better. He is no experiencing any pain in his right lower extremity. He denies any CP/SOB/N/V. Estimated blood loss was 600ml. OBJECTIVE: Vital Signs Period Temp Pulse Resp BP Sys/Cooper Pulse Ox Last 24 Hr 97.8 F-98.5 F 79-134 15-23 82-126/58-84 96-100 GENERAL: The patient is awake, alert, and fully oriented, in no acute distress.. NECK: Trachea midline, full range of motion, supple. LUNGS: Breath sounds equal, clear to auscultation bilaterally, no wheezes, no crackles, no accessory muscle use. HEART: Regular rate and rhythm, S1, S2 without murmur, rub or gallop. ABDOMEN: Soft, nontender, nondistended, normoactive bowel sounds, no guarding, no rebound, no hepatosplenomegaly, no masses. EXTREMITIES: RLE warm to touch, palpable pulses, no edema. LLE pulses, no edema NEUROLOGICAL: Cranial nerves II through XII grossly intact. Normal speech, gait not observed. SKIN: Warm, dry, normal turgor, no rashes or lesions noted Laboratory Results - last 24 hr 03/26/18 03/26/18 03/27/18 11:20 18:30 03:00 WBC RBC Hgb Hct MCV MCH MCHC RDW Plt Count MPV PTT (Actin FS) 32.3 29.3 Sodium Potassium Chloride Carbon Dioxide Anion Gap BUN Creatinine Creat Clearance w eGFR Random Glucose Calcium Total Bilirubin AST ALT Alkaline Phosphatase Total Protein Albumin Blood Type A POSITIVE Antibody Screen Negative Crossmatch See Detail 03/27/18 03/27/18 03/27/18 05:30 05:30 09:49 WBC 11.6 H RBC 3.66 L Hgb 11.4 L Hct 33.1 L D MCV 90.5 MCH 31.2 MCHC 34.5 RDW 14.4 Plt Count 167 MPV 9.0 PTT (Actin FS) 41.7 D Sodium 143 Potassium 4.2 Chloride 109 H Carbon Dioxide 26 Anion Gap 8 BUN 13 Creatinine 0.9 Creat Clearance w eGFR > 60 Random Glucose 113 H Calcium 8.1 L Total Bilirubin 1.0 AST 14 L D ALT 19 D Alkaline Phosphatase 76 D Total Protein 6.4 Albumin 2.9 L Blood Type Antibody Screen Crossmatch Active Medications Generic Name Dose Route Start Last Admin Trade Name German PRN Reason Stop Dose Admin Acetaminophen 650 mg 03/26/18 22:04 Tylenol - PO Q6H PRN FEVER/PAIN SCALE 1-5 Aspirin 81 mg 03/27/18 10:00 03/27/18 09:32 Asa - PO 81 mg DAILY PETE Administration Atorvastatin Calcium 20 mg 03/27/18 22:00 Lipitor - PO HS PETE Chlorhexidine Gluconate 1 applic 03/26/18 22:45 03/26/18 23:36 Hibiclens For Decolonization - TP 1 applic HS PETE Administration Heparin Sodium (Porcine) 5,000 unit 03/26/18 21:25 03/27/18 03:50 Heparin - IVPUSH 5,000 unit PRN PRN Administration Heparin Heparin Sodium (Porcine) 1,000 unit 03/26/18 21:25 Heparin - IVPUSH PRN PRN Heparin Heparin Sodium/Dextrose 25,000 units in 500 mls @ 20 mls/hr 03/26/18 21:30 03:51 Heparin Infusion - IVPB 1,150 units/hr TITR PETE 23 mls/hr Titration Protocol 1,000 UNITS/HR Levothyroxine Sodium 50 mcg 03/27/18 07:00 03/27/18 06:27 Synthroid - PO 50 mcg DAILY@0700 PETE Administration Metoprolol Succinate 75 mg 03/27/18 10:00 03/27/18 09:31 Toprol Xl - PO 75 mg BID PETE Administration Mupirocin 1 applic 03/26/18 22:45 03/27/18 09:32 Bactroban Ointment (For Decolonization) - NS 03/31/18 22:44 1 applic BID PETE Administration ASSESSMENT/PLAN: 62 y/o male with PMH of Afib with WPW, hypothyroidism, previous history of DVT presented to the ED with complaints of RLE pain/numbness/cool extremity found to have thrombi in distal R SOLE FILLER extending to R SFA adn DFA; underwent open thrombectomy of right iliac, SFA, and deep profunda artery. Afib: patient likely had arterial thrombus due to afib -patient had not been on AC for Afib -currently on heparin drip and toprol Xl 75 mg BID -had not taken his ASA in quite a while DVT: -found to have DVT of RLE as well -possibly unprovoked or due to recent shoulder surgery? Hypothyroidism: -continue with synthroid F/E/N -BMP in am -na restricted diet dispo : telemetry Problem List - Problems (1) Arterial occlusion Code(s): I70.90 - UNSPECIFIED ATHEROSCLEROSIS (2) Atrial fibrillation Code(s): I48.91 - UNSPECIFIED ATRIAL FIBRILLATION Qualifiers: Atrial fibrillation type: unspecified Qualified Code(s): I48.91 - Unspecified atrial fibrillation (3) DVT (deep venous thrombosis) Code(s): I82.409 - ACUTE EMBOLISM AND THOMBOS UNSP DEEP VN UNSP LOWER EXTREMITY Qualifiers: DVT location: lower extremity Affected thrombotic vein of extremity: unspecified vein of extremity Chronicity: acute Laterality: right Qualified Code(s): I82.401 - Acute embolism and thrombosis of unspecified deep veins of right lower extremity Visit type - Emergency Visit Emergency Visit: Yes ED Registration Date: 03/26/18 Care time: The patient presented to the Emergency Department on the above date and was hospitalized for further evaluation of their emergent condition. - New Patient This patient is new to me today: Yes Date on this admission: 03/27/18 - Critical Care Critical Care patient: Yes Total Critical Care Time (in minutes): 35 Critical Care Statement: The care of this patient involved high complexity decision making to prevent further life threatening deterioration of the patient 's condition and/or to evaluate & treat vital organ system(s) failure or risk of failure.
--- NOTE | 2018-03-27 13:50 | PN ---
Teaching Attending Note Name of Resident: Viri Lucero ATTENDING PHYSICIAN STATEMENT I saw and evaluated the patient. I reviewed the resident's note and discussed the case with the resident. I agree with the resident's findings and plan as documented. SUBJECTIVE: Patient seen and examined in the ICU. POD #1: Open thrombectomy right iliac, SFA, Deep profunda artery , with angiogram of right lower extremity, with embolus removal. Awake and alert. No CP or SOB. Improving symptoms in the RLE. On IV Heparin drip Intake & Output 03/24/18 03/25/18 03/26/18 03/27/18 23:59 23:59 23:59 23:59 Intake Total 1940 389 Output Total 1200 600 Balance 740 -211 Weight 300 lb 301 lb 3 oz Last Vital Signs Temp Pulse Resp BP Pulse Ox 98.1 F 102 H 20 92/61 100 03/27/18 10:00 03/27/18 10:00 03/27/18 10:00 03/27/18 10:00 03/27/18 08:00 Active Medications Acetaminophen (Tylenol -) 650 mg PO Q6H PRN PRN Reason: FEVER/PAIN SCALE 1-5 Aspirin (Asa -) 81 mg PO DAILY [facility] Last Admin: 03/27/18 09:32 Dose: 81 mg Atorvastatin Calcium (Lipitor -) 20 mg PO HS [facility] Chlorhexidine Gluconate (Hibiclens For Decolonization -) 1 applic TP HS [facility] Last Admin: 03/26/18 23:36 Dose: 1 applic Heparin Sodium (Porcine) (Heparin -) 5,000 unit IVPUSH PRN PRN PRN Reason: Heparin Last Admin: 03/27/18 03:50 Dose: 5,000 unit Heparin Sodium (Porcine) (Heparin -) 1,000 unit IVPUSH PRN PRN PRN Reason: Heparin Heparin Sodium/Dextrose (Heparin Infusion -) 25,000 units in 500 mls @ 20 mls/ hr IVPB TITR [facility]; Protocol Last Titration: 03/27/18 03:51 Dose: 1,150 units/hr, 23 mls/hr Levothyroxine Sodium (Synthroid -) 50 mcg PO DAILY@0700 [facility] Last Admin: 03/27/18 06:27 Dose: 50 mcg Metoprolol Succinate (Toprol Xl -) 75 mg PO BID [facility] Last Admin: 03/27/18 09:31 Dose: 75 mg Mupirocin (Bactroban Ointment (For Decolonization) -) 1 applic NS BID PTEE Stop: 03/31/18 22:44 Last Admin: 03/27/18 09:32 Dose: 1 applic GENERAL: Awake, alert, and oriented, NAD HEAD: Normal with no signs of trauma. EYES: Pupils equal, round and reactive to light, extraocular movements intact, sclera anicteric, conjunctiva clear. EARS, NOSE, THROAT: Oropharynx clear without exudates. Moist mucous membranes. NECK: Normal range of motion, supple without lymphadenopathy, JVD, or masses. LUNGS: Breath sounds equal, clear to auscultation bilaterally. No wheezes, and no crackles. No accessory muscle use. HEART: Irregular rate and rhythm, normal S1 and S2 without murmur, rub or gallop. ABDOMEN: Obese, soft, nontender, not distended, normoactive bowel sounds, no guarding, no rebound, no masses. No hepatomegaly or splenomegaly. MUSCULOSKELETAL: Normal range of motion at all joints. No bony deformities or tenderness. UPPER EXTREMITIES: 2+ pulses, warm, well-perfused. No cyanosis. No clubbing. Cap refill <2 seconds. No peripheral edema. LOWER EXTREMITIES: 2+ pulses on left (DP, PT), dopplerable on right side ( DP, PT), warm left foot, cool right foot. No peripheral edema. NEUROLOGICAL: Non-focal PSYCHIATRIC: Cooperative. Good eye contact. Appropriate mood and affect. SKIN: Warm, dry, normal turgor, no rashes, 8 cm scar in the anterior left shoulder Laboratory Results - last 24 hr 03/26/18 03/26/18 03/27/18 11:20 18:30 03:00 WBC RBC Hgb Hct MCV MCH MCHC RDW Plt Count MPV PTT (Actin FS) 32.3 29.3 Sodium Potassium Chloride Carbon Dioxide Anion Gap BUN Creatinine Creat Clearance w eGFR Random Glucose Calcium Total Bilirubin AST ALT Alkaline Phosphatase Total Protein Albumin Blood Type A POSITIVE Antibody Screen Negative Crossmatch See Detail 03/27/18 03/27/18 03/27/18 05:30 05:30 09:49 WBC 11.6 H RBC 3.66 L Hgb 11.4 L Hct 33.1 L D MCV 90.5 MCH 31.2 MCHC 34.5 RDW 14.4 Plt Count 167 MPV 9.0 PTT (Actin FS) 41.7 D Sodium 143 Potassium 4.2 Chloride 109 H Carbon Dioxide 26 Anion Gap 8 BUN 13 Creatinine 0.9 Creat Clearance w eGFR > 60 Random Glucose 113 H Calcium 8.1 L Total Bilirubin 1.0 AST 14 L D ALT 19 D Alkaline Phosphatase 76 D Total Protein 6.4 Albumin 2.9 L Blood Type Antibody Screen Crossmatch Problem List - Problems (1) Arterial occlusion Code(s): I70.90 - UNSPECIFIED ATHEROSCLEROSIS (2) Atrial fibrillation Code(s): I48.91 - UNSPECIFIED ATRIAL FIBRILLATION Qualifiers: Atrial fibrillation type: unspecified Qualified Code(s): I48.91 - Unspecified atrial fibrillation (3) DVT (deep venous thrombosis) Code(s): I82.409 - ACUTE EMBOLISM AND THOMBOS UNSP DEEP VN UNSP LOWER EXTREMITY Qualifiers: DVT location: lower extremity Affected thrombotic vein of extremity: unspecified vein of extremity Chronicity: acute Laterality: right Qualified Code(s): I82.401 - Acute embolism and thrombosis of unspecified deep veins of right lower extremity ASSESSMENT/PLAN: POD #1: Open thrombectomy right iliac, SFA, Deep profunda artery , with angiogram of right lower extremity, with embolus removal. Likely OSAS Morbid obesity Hypothyroidism PLAN: D/W vascular when to transition to oral therapy. Can use NOAC as oral bridge ( should have discussion about use in M Obesity patients) O2 as needed Normal transfusion thresholds No smoking Continue home meds Activity per surgery Will need formal sleep workup after D/C Dr Horta Critical care time spent in reviewing chart, evaluating patient and formulating plan - 36 minutes.
[2018-03-27] MEDS: HEPARIN INFUSION - 25,000 UNITS/500 ML INFUS.BAG IVPB SCH (16:13)
[2018-03-27] MEDS ORDERED: METOPROLOL TARTRATE 5 MG/5 ML VIAL ONE (16:53)
[2018-03-27] MEDS ORDERED: METOPROLOL TARTRATE 5 MG/5 ML VIAL IVPUSH ONE ×2 (17:00→21:18)
[2018-03-27] MEDS: ATORVASTATIN CA 20 MG TABLET (FP) PO SCH (21:19)
[2018-03-27] MEDS ORDERED: ATORVASTATIN CA 20 MG TABLET (FP) PO SCH (22:00)
[2018-03-28] MEDS: metoPROLOL SUCCINATE 25 MG TAB.SR.24H (FP) PO SCH ×3 (00:27→21:00)
[2018-03-28 05:55] LABS: HEMATOCRIT 33.5 % (35.4-49); HEMOGLOBIN 11.5 GM/dL (11.7-16.9); MCH 31.2 pg (25.7-33.7); MCHC 34.3 g/dl (32.0-35.9); MEAN PLT VOLUME 9.1 fl (7.5-11.1); PLATELET COUNT 172 K/MM3 (134-434); RBC 3.68 M/mm3 (4.00-5.60); RDW 14.9 % (11.9-15.9); WHITE BLOOD COUNT 11.6 K/mm3 (4.0-10.0)
[2018-03-28] MEDS: LEVOTHYROXINE NA 50 MCG TABLET (FP) PO SCH (06:19)
[2018-03-28 07:22] LABS: ANION GAP 9 (8-16); BLOOD UREA NITROGEN 14 mg/dL (7-18); CALCIUM 8.2 mg/dL (8.5-10.1); CHLORIDE 107 mmol/L (98-107); CO2 25 mmol/L (21-32); GLUCOSE,RANDOM 100 mg/dL (74-106); POTASSIUM 3.8 mmol/L (3.5-5.1); SODIUM 141 mmol/L (136-145)
--- NOTE | 2018-03-28 08:26 | PN ---
Progress Note, Physician - Current Medication List Current Medications: Active Medications Acetaminophen (Tylenol -) 650 mg PO Q6H PRN PRN Reason: FEVER/PAIN SCALE 1-5 Aspirin (Asa -) 81 mg PO DAILY [facility] Atorvastatin Calcium (Lipitor -) 20 mg PO HS [facility] Last Admin: 03/27/18 21:19 Dose: 20 mg Heparin Sodium (Porcine) (Heparin -) 5,000 unit IVPUSH PRN PRN PRN Reason: Heparin Last Admin: 03/27/18 22:03 Dose: 5,000 unit Heparin Sodium (Porcine) (Heparin -) 1,000 unit IVPUSH PRN PRN PRN Reason: Heparin Heparin Sodium/Dextrose (Heparin Infusion -) 25,000 units in 500 mls @ 20 mls/ hr IVPB TITR [facility]; Protocol Last Titration: 03/28/18 06:49 Dose: 1,550 units/hr, 31 mls/hr Levothyroxine Sodium (Synthroid -) 50 mcg PO DAILY@0700 [facility] Last Admin: 03/28/18 06:19 Dose: 50 mcg Metoprolol Succinate (Toprol Xl -) 75 mg PO BID [facility] Last Admin: 03/28/18 00:27 Dose: Not Given - Objective Vital Signs: Vital Signs Temperature 98.5 F 03/28/18 07:30 Pulse Rate 108 H 03/28/18 07:30 Respiratory Rate 16 03/28/18 07:30 Blood Pressure 104/87 03/28/18 07:30 O2 Sat by Pulse Oximetry (%) 100 03/28/18 07:00 Labs: CBC, BMP 03/28/18 05:30 03/28/18 05:30 INR, PTT INR 1.24 (0.82-1.09) H 03/26/18 11:27 Problem List - Problems (1) Arterial occlusion Assessment/Plan: Operative Date: 03/26/18 Pre-Operative Diagnosis: RLE ischemia Operation: Open thrombectomy right iliac, sfa, Deep profunda artery , with angiogram of right lower extremity. Findings: Embolus removed. Post-Operative Diagnosis: Same as Pre-op Surgeon: Rafi Byrnes Anesthesia: General Estimated Blood Loss (mls): 600 Operative Report Dictated: Yes heparin drip Code(s): I70.90 - UNSPECIFIED ATHEROSCLEROSIS (2) Atrial fibrillation Assessment/Plan: heparin drip metoprolol cardio on board echo Code(s): I48.91 - UNSPECIFIED ATRIAL FIBRILLATION Qualifiers: Atrial fibrillation type: unspecified Qualified Code(s): I48.91 - Unspecified atrial fibrillation (3) DVT (deep venous thrombosis) Assessment/Plan: on heparin drip for now will need hypercoaguable hem consult Code(s): I82.409 - ACUTE EMBOLISM AND THOMBOS UNSP DEEP VN UNSP LOWER EXTREMITY Qualifiers: DVT location: lower extremity Affected thrombotic vein of extremity: unspecified vein of extremity Chronicity: acute Laterality: right Qualified Code(s): I82.401 - Acute embolism and thrombosis of unspecified deep veins of right lower extremity (4) Hypothyroid Assessment/Plan: on synthroid Code(s): E03.9 - HYPOTHYROIDISM, UNSPECIFIED (5) Tachycardia Assessment/Plan: r/o pe cta on ac Code(s): R00.0 - TACHYCARDIA, UNSPECIFIED
[2018-03-28] MEDS ORDERED: PT OWN MED DRAWER 7, Y5N ONE (08:32)
[2018-03-28] MEDS: ASPIRIN 81 MG CHEWABLE TABLETS PO SCH (09:14)
[2018-03-28] MEDS: HEPARIN INFUSION - 25,000 UNITS/500 ML INFUS.BAG IVPB SCH ×3 (09:31→16:55)
--- NOTE | 2018-03-28 09:55 | PN ---
Progress Note (short form) - Note Progress Note: Pt with tachycardia with OOB to chair yesterday. No CP/SOB. Vital Signs Period Temp Pulse Resp BP Sys/Cooper Pulse Ox Last 24 Hr 98.1 F-99 F 96-150 16-34 85-124/61-98 100 GEN: appears comfortable Right groin: dressing changed. Incision c/d/i with mahesh and mild ecchymosis/ thigh is soft. No evidence of hematoma. Palpable DP pulse and PT with doppler. Calf soft/no swelling noted. CBC, BMP 03/28/18 05:30 03/28/18 05:30 INR, PTT INR 1.24 (0.82-1.09) H 03/26/18 11:27 Laboratory Tests 03/28/18 05:30 PTT (Actin FS) 38.6 A/P: 62 yo male Open s/p thrombectomy right iliac, sfa, Deep profunda artery , with angiogram of right lower extremity. Also with DVT to SFV/popliteal in the RLE Plan to continue IV Heparin-adjusted PTT this am for subtheraputic value of 38 D/w medical attending and plan for CTA today to r/o PE OOB to chair as tolerated Discontinue macedo catheter for TOV
--- NOTE | 2018-03-28 10:32 | PN ---
Progress Note (short form) - Note Progress Note: s: no sob cp dizzy. still has leg pain from incision, improving. went for CT chest this AM tele: afib, rate controlled o: Current Medications Generic Name Dose Route Start Last Admin Trade Name Freq PRN Reason Stop Dose Admin Acetaminophen 650 mg 03/27/18 15:27 Tylenol - PO Q6H PRN FEVER/PAIN SCALE 1-5 Aspirin 81 mg 03/28/18 10:00 03/28/18 09:14 Asa - PO 81 mg DAILY PETE Administration Atorvastatin Calcium 20 mg 03/27/18 22:00 03/27/18 21:19 Lipitor - PO 20 mg HS PETE Administration Heparin Sodium (Porcine) 5,000 unit 03/27/18 15:27 03/27/18 22:03 Heparin - IVPUSH 5,000 unit PRN PRN Administration Heparin Heparin Sodium (Porcine) 1,000 unit 03/27/18 15:27 Heparin - IVPUSH PRN PRN Heparin Heparin Sodium/Dextrose 25,000 units in 500 mls @ 20 mls/hr 03/27/18 15:27 09:31 Heparin Infusion - IVPB 1,550 units/hr TITR PETE 31 mls/hr Administration Protocol 1,000 UNITS/HR Levothyroxine Sodium 50 mcg 03/28/18 07:00 03/28/18 06:19 Synthroid - PO 50 mcg DAILY@0700 PETE Administration Metoprolol Succinate 75 mg 03/27/18 22:00 03/28/18 09:14 Toprol Xl - PO 75 mg BID PETE Administration Vital Signs Period Temp Pulse Resp BP Sys/Cooper Pulse Ox Last 24 Hr 98.2 F-99 F 94-150 16-34 85-124/65-98 100 Constitutional: Yes: No Distress, Obese Eyes: No: Sclera Icterus HENT: No: Nasal Congestion Neck: No: Decreased ROM Respiratory: Yes: CTA Bilaterally. No: Accessory Muscle Use, Rales, Wheezes Gastrointestinal: Yes: Normal Bowel Sounds. No: Distention, Hepatomegaly, Palpable Mass, Tenderness Cardiovascular: Yes: Regular Rate and Rhythm JVD: No Carotid Bruit: No PMI: Non-Displaced Heart Sounds: Yes: S1, S2. No: Gallop Murmur: No: Systolic Murmur, Diastolic Murmur Musculoskeletal: Yes: Other (No kyphosis) Extremities: Yes: Cold (R). No: Cool, Cyanosis Edema: No Peripheral Pulses: 0 Right Dorsalis Pedis, 2+ Left Carotid, 2+ Right Carotid, 2 + Left Doralis Pedis Integumentary: No: Jaundice Neurological: Yes: Alert, Oriented (x3) Psychiatric: No: Agitated Assessment/Plan Echo 02/12: afib; TDS; nl LV size and LVSF (EF at least 55%). RV tds: ? mild dilation, can't assess RVSF. ? nl LA size. valves WNL. mildly dilated ao root ( 3.9 cm) ECG: afib, no path q's; NSTWAs septal leads persistent AF: - had not been on AC at home, poor follow up, now on heparin gtt and would start NOAC at discharge for AF and DVT if no contraindication - s/p open thrombectomy of R iliac, SFA, deep profunda, and angiogram and is on heparin gtt, likely related to atheroembolic event from afib - currently on metoprolol 75 mg BID, BP has been running low. if no PE and improvement in BP would consider increase metoprolol to 100 mg BID, contniue current dose for now DVT: -also with distal SFV and popliteal vein thrombus on duplex, recent shoulder surgery, on heparin gtt as above - would consider hypercoagulable workup as outpatient, follow up hematology - CTA PE protocol done this AM, pending SOB: -new sob on stairs x2-3 days prior to admission - CTA PE done this morning, pending hypothyroidism: - on synthroid, manage per primary team
--- NOTE | 2018-03-28 12:40 | CONSULT ---
Consultation: REQUESTING PROVIDER: CONSULT REQUEST: We have been asked to medically evaluate this patient for ( HEMATOLOGY- ONCOLOGY). HISTORY OF PRESENT ILLNESS: 62 Y/O M with pmh of HTN, HLD, afib, morbid obesity , hypothyroidism who came to the hospital on Monday with a chief complaint of cramps, pain and numbness in right leg. He underwent arterial doppler and was found to have arterial occlusion of RLE. Patient was taken for surgery on 03/26 and thrombecomy from right iliac, sfa, Deep profunda artery was done. On CTA chest was done which showed saddle embolism at bifurcation of main pulmonary artery. Patient denies chest pain, dizziness. Patient also reports that from prior week he noticed some difficulty in breathing. Denies trauma to leg. Denies travelling and long sitting Denies change in weight and appetite No h/o cancer. PMH: htn, hld, afib, morbid obesity, wpw syndrome PSH; left shoulder surgery, right hip replacement. Social history: smokes cigar once a week, alcohol occasional. Family history; mother recently diagnosed with ca lung ( unaware of details) No family h/o hypercoagulable state. PHYSICAL EXAMINATION Vital Signs - 24 hr 03/28/18 03/28/18 09:00 10:00 Temperature 98.8 F Pulse Rate 96 H 94 H Respiratory 16 16 Rate Blood Pressure 101/76 115/79 O2 Sat by Pulse Oximetry (%) GENERAL: Awake, alert, and fully oriented, in no acute distress. HEAD: Normal with no signs of trauma. EYES: conjunctiva clear. EARS, NOSE, THROAT: Moist mucous membranes. NECK: Normal range of motion, supple without lymphadenopathy, LUNGS: Breath sounds equal, decrease air entry at bases, No wheezes, and no crackles. HEART: s1s2 normal, no murmur, irregular ABDOMEN: Soft, nontender, not distended, normoactive bowel sounds, no guarding, no rebound, no masses. . LOWER EXTREMITIES: 2+ pulses, warm, well-perfused. No calf tenderness. No peripheral edema. PSYCHIATRIC: Cooperative. SKIN: Warm, dry, Laboratory Results - last 24 hr 03/27/18 03/28/18 03/28/18 20:20 05:30 05:30 WBC 11.6 H RBC 3.68 L Hgb 11.5 L Hct 33.5 L MCV 91.0 MCH 31.2 MCHC 34.3 RDW 14.9 Plt Count 172 MPV 9.1 PTT (Actin FS) 35.0 38.6 Sodium Potassium Chloride Carbon Dioxide Anion Gap BUN Creatinine Creat Clearance w eGFR Random Glucose Calcium Generic Name Dose Route Start Last Admin Trade Name Freq PRN Reason Stop Dose Admin Acetaminophen 650 mg 03/27/18 15:27 Tylenol - PO Q6H PRN FEVER/PAIN SCALE 1-5 Aspirin 81 mg 03/28/18 10:00 03/28/18 09:14 Asa - PO 81 mg DAILY PETE Administration Atorvastatin Calcium 20 mg 03/27/18 22:00 03/27/18 21:19 Lipitor - PO 20 mg HS PETE Administration Heparin Sodium (Porcine) 5,000 unit 03/27/18 15:27 03/27/18 22:03 Heparin - IVPUSH 5,000 unit PRN PRN Administration Heparin Heparin Sodium (Porcine) 1,000 unit 03/27/18 15:27 Heparin - IVPUSH PRN PRN Heparin Heparin Sodium/Dextrose 25,000 units in 500 mls @ 20 mls/hr 03/27/18 15:27 09:31 Heparin Infusion - IVPB 1,550 units/hr TITR PETE 31 mls/hr Administration Protocol 1,000 UNITS/HR Levothyroxine Sodium 50 mcg 03/28/18 07:00 03/28/18 06:19 Synthroid - PO 50 mcg DAILY@0700 PETE Administration Metoprolol Succinate 75 mg 03/27/18 22:00 03/28/18 09:14 Toprol Xl - PO 75 mg BID PETE Administration ASSESSMENT/PLAN: PAD with acute embolic event likely from afib Afib not on AC at home Pulmonary embolism Saddle embolism DVT distal SFV and popliteal vein thrombus Morbid obesity. Hypothyroidism. h/o htn, hld. Plan. Patient has first unprovoked episode of DVT with PE. Patient is on heparin drip with ptt monitoring. Consider starting warfarin after 2 days and bridge with heparin to INR of 2-3. Patient BMI is more then 40 therefore warfarin is AC of choice. Get ECHO to look for RV pressure and dilatation. If patient becomes hemodynamically unstable or ECHO shows increase pressure in RV then consider IR consult For afib pt is on rate control and heparin. Dispo: We will continue to follow the patient. Thank you for this consultative opportunity. Visit type - Emergency Visit Emergency Visit: Yes ED Registration Date: 03/26/18 Care time: The patient presented to the Emergency Department on the above date and was hospitalized for further evaluation of their emergent condition. - New Patient This patient is new to me today: Yes Date on this admission: 03/28/18 - Critical Care Critical Care patient: Yes Total Critical Care Time (in minutes): 45 Critical Care Statement: The care of this patient involved high complexity decision making to prevent further life threatening deterioration of the patient 's condition and/or to evaluate & treat vital organ system(s) failure or risk of failure.
--- NOTE | 2018-03-28 13:11 | PATH ---
Surgical Pathology Report Patient Name: CHANDRAKANT MAIER Med. Rec. #: [id number] /Age/Gender: 1955 (Age: 62) / M Account: [id number] Location: ICU ROUTING CLERK Taken: 03/26/2018 Received: 03/27/2018 Reported: 03/28/2018 Physicians: Rafi Garcia M.D. Specimen(s) Received CLOTS FROM RIGHT FEMORAL ARTERY Clinical History Deep vein thrombosis, atrial fibrillation, lesion of right femoral artery Final Diagnosis FEMORAL ARTERY, RIGHT, PROXIMAL, THROMBECTOMY: ORGANIZED BLOOD CLOT (THROMBUS). Electronically Signed Awa Armstrong M.D. Gross Description Received in formalin labeled "right femoral artery clots" are 3 irregular red-raymond clots measuring in aggregate 2.5 x 1.5 x 0.4 cm. The entire specimen is submitted one cassette. MLSZ/03/27/2018 sangamla/03/27/2018
--- NOTE | 2018-03-28 13:16 | PN ---
Physical Exam: SUBJECTIVE: Patient seen and examined at bedside. During the night, patient was tachycardic with max HR being at 136. He recived a 5mg dose of lopressor and his HR still remained slightly elevated. Patient went for CT of the chest this morning and was found to have a saddle pulmonary embolism. Currently, patient is not experiencing any CP or SOB. OBJECTIVE: Vital Signs Period Temp Pulse Resp BP Sys/Cooper Pulse Ox Last 24 Hr 98.2 F-99 F 92-150 16-34 85-124/65-98 100 GENERAL: The patient is awake, alert, and fully oriented, in no acute distress. LUNGS: Breath sounds equal, clear to auscultation bilaterally, no wheezes, no crackles, no accessory muscle use. HEART: Regular rate and rhythm, S1, S2 without murmur, rub or gallop. ABDOMEN: Soft, nontender, nondistended, normoactive bowel sounds, no guarding, no rebound, no hepatosplenomegaly, no masses. EXTREMITIES: 2+ pulses, warm, well-perfused, no edema. NEUROLOGICAL: Cranial nerves II through XII grossly intact. Normal speech, gait not observed. SKIN: Warm, dry, normal turgor, no rashes or lesions noted Laboratory Results - last 24 hr 03/27/18 03/28/18 03/28/18 20:20 05:30 05:30 WBC 11.6 H RBC 3.68 L Hgb 11.5 L Hct 33.5 L MCV 91.0 MCH 31.2 MCHC 34.3 RDW 14.9 Plt Count 172 MPV 9.1 PTT (Actin FS) 35.0 38.6 Sodium Potassium Chloride Carbon Dioxide Anion Gap BUN Creatinine Creat Clearance w eGFR Random Glucose Calcium 03/28/18 03/28/18 05:30 12:15 WBC RBC Hgb Hct MCV MCH MCHC RDW Plt Count MPV PTT (Actin FS) 44.8 Sodium 141 Potassium 3.8 Chloride 107 Carbon Dioxide 25 Anion Gap 9 BUN 14 Creatinine 1.0 Creat Clearance w eGFR > 60 Random Glucose 100 Calcium 8.2 L Active Medications Generic Name Dose Route Start Last Admin Trade Name Freq PRN Reason Stop Dose Admin Acetaminophen 650 mg 03/27/18 15:27 Tylenol - PO Q6H PRN FEVER/PAIN SCALE 1-5 Aspirin 81 mg 03/28/18 10:00 03/28/18 09:14 Asa - PO 81 mg DAILY PETE Administration Atorvastatin Calcium 20 mg 03/27/18 22:00 03/27/18 21:19 Lipitor - PO 20 mg HS PETE Administration Heparin Sodium (Porcine) 5,000 unit 03/27/18 15:27 03/27/18 22:03 Heparin - IVPUSH 5,000 unit PRN PRN Administration Heparin Heparin Sodium (Porcine) 1,000 unit 03/27/18 15:27 Heparin - IVPUSH PRN PRN Heparin Heparin Sodium/Dextrose 25,000 units in 500 mls @ 20 mls/hr 03/27/18 15:27 09:31 Heparin Infusion - IVPB 1,550 units/hr TITR PETE 31 mls/hr Administration Protocol 1,000 UNITS/HR Levothyroxine Sodium 50 mcg 03/28/18 07:00 03/28/18 06:19 Synthroid - PO 50 mcg DAILY@0700 PETE Administration Metoprolol Succinate 75 mg 03/27/18 22:00 03/28/18 09:14 Toprol Xl - PO 75 mg BID PETE Administration ASSESSMENT/PLAN: 62 y/o male with PMH of Afib ( not on ac), HTN, presented with RLE pain/ numbness s/p RLE thrombectomy , now found to have a saddle pulmonary embolism on CTA of the chest with multiple emboli. Pulmonary Embolism new saddle PE with multiple emboli found on CTA of the chest this AM -echocardiogram to assess RV -LE venous doppler studies to rule out DVT -IR consulted about possible thrombectomy -continue with heparin drip S/P open thrombectomy: -palpable RLE pulses -not experiencing anymore pain -continue with heparin drip Cardio: Afib currently on ASA, heparin drip, toprol XL -follow up echo -trend cardiac enzymes and Pro-BNP Respiratory: currently not experiencing any dyspnea -monitor O2 saturations and respiratory status F/E/N -replete electrolytes: -currently NPO until IR makes decision about PE dispo: continue ICU monitoring Problem List - Problems (1) Arterial occlusion Code(s): I70.90 - UNSPECIFIED ATHEROSCLEROSIS (2) Atrial fibrillation Code(s): I48.91 - UNSPECIFIED ATRIAL FIBRILLATION Qualifiers: Atrial fibrillation type: unspecified Qualified Code(s): I48.91 - Unspecified atrial fibrillation (3) DVT (deep venous thrombosis) Code(s): I82.409 - ACUTE EMBOLISM AND THOMBOS UNSP DEEP VN UNSP LOWER EXTREMITY Qualifiers: DVT location: lower extremity Affected thrombotic vein of extremity: unspecified vein of extremity Chronicity: acute Laterality: right Qualified Code(s): I82.401 - Acute embolism and thrombosis of unspecified deep veins of right lower extremity (4) Pulmonary embolism Code(s): I26.99 - OTHER PULMONARY EMBOLISM WITHOUT ACUTE COR PULMONALE Visit type - Emergency Visit Emergency Visit: Yes ED Registration Date: 03/26/18 Care time: The patient presented to the Emergency Department on the above date and was hospitalized for further evaluation of their emergent condition. - New Patient This patient is new to me today: No - Critical Care Critical Care patient: Yes Total Critical Care Time (in minutes): 35 Critical Care Statement: The care of this patient involved high complexity decision making to prevent further life threatening deterioration of the patient 's condition and/or to evaluate & treat vital organ system(s) failure or risk of failure.
--- NOTE | 2018-03-28 13:17 | PN ---
Teaching Attending Note Name of Resident: Viri Lucero ATTENDING PHYSICIAN STATEMENT I saw and evaluated the patient. I reviewed the resident's note and discussed the case with the resident. I agree with the resident's findings and plan as documented. SUBJECTIVE: Pt seen and examined in the ICU. CTA chest done this AM showing saddle embolus and extensive bilateral emboli. Has been tachycardic but maintaining his blood pressure. Denies shortness of breath, chest pain or palpitations. OBJECTIVE: Vital Signs Period Temp Pulse Resp BP Sys/Cooper Pulse Ox Last 24 Hr 98.2 F-99 F 92-150 16-34 85-124/65-98 100 Intake & Output 03/25/18 03/26/18 03/27/18 03/28/18 23:59 23:59 23:59 23:59 Intake Total 1940 1479 160 Output Total 1200 1750 320 Balance 740 -271 -160 Weight 136.078 kg 136.616 kg 136.758 kg Gen: mildly tachypneic at rest Heart: tachycardic, regular Lung: decreased breath sounds at the bases Abd: soft, nontender Ext: + edema CBC, BMP 03/28/18 05:30 03/28/18 05:30 Active Medications Acetaminophen (Tylenol -) 650 mg PO Q6H PRN PRN Reason: FEVER/PAIN SCALE 1-5 Aspirin (Asa -) 81 mg PO DAILY [facility] Last Admin: 03/28/18 09:14 Dose: 81 mg Atorvastatin Calcium (Lipitor -) 20 mg PO HS [facility] Last Admin: 03/27/18 21:19 Dose: 20 mg Heparin Sodium (Porcine) (Heparin -) 5,000 unit IVPUSH PRN PRN PRN Reason: Heparin Last Admin: 03/27/18 22:03 Dose: 5,000 unit Heparin Sodium (Porcine) (Heparin -) 1,000 unit IVPUSH PRN PRN PRN Reason: Heparin Heparin Sodium/Dextrose (Heparin Infusion -) 25,000 units in 500 mls @ 20 mls/ hr IVPB TITR PETE; Protocol Last Admin: 03/28/18 09:31 Dose: 1,550 units/hr, 31 mls/hr Levothyroxine Sodium (Synthroid -) 50 mcg PO DAILY@0700 [facility] Last Admin: 03/28/18 06:19 Dose: 50 mcg Metoprolol Succinate (Toprol Xl -) 75 mg PO BID PETE Last Admin: 03/28/18 09:14 Dose: 75 mg ASSESSMENT AND PLAN: PAD/R iliac/SFA/deep profunda thrombus s/o open thrombectomy Acute Pulmonary Emboli RLE DVT Atrial Fibrillation Hypothyroidism - continue anticoagulation - echocardiogram to assess RV function - catheter directed thrombectomy/thrombolysis if evidence of right heart dysfunction or worsening symptoms - consult IR - trend cardiac enzymes - rate control - O2 to keep SpO2 >90% - continue ICU monitoring critical care time spent in reviewing chart, evaluating patient and formulating plan 35 min
[2018-03-28] MEDS: HEPARIN NA (PORCINE) 5,000 UNITS/ML 1ML VIAL IVPUSH PRN ×2 (13:51→20:51)
--- NOTE | 2018-03-28 14:28 | ECHO ---
Name: CHANDRAKANT MAIER Exam:Adult Echocardiogram Study Date: 03/28/2018 12:37 PM Age: 62 yrs Reason For Study: pulmonary embolism found on cta Height: 69 in Weight: 301 lb BSA: 2.5 m2 BP: 99/75 mmHg MMode/2D Measurements & Calculations IVSd: 0.88 cm Ao root diam: 3.8 cm LVIDd: 4.9 cm LA dimension: 4.9 cm LVIDs: 3.3 cm ACS: 2.1 cm LVPWd: 0.91 cm IVSs: 1.1 cm LVPWs: 0.94 cm EDV(Teich): 114.6 ml ESV(Teich): 44.5 ml Doppler Measurements & Calculations MV E max dexter: 99.7 cm/sec Ao V2 max: 116.7 cm/sec MV A max dexter: 28.1 cm/sec Ao max P.5 mmHg MV E/A: 3.5 Ao V2 mean: 84.7 cm/sec Ao mean P.2 mmHg Ao V2 VTI: 17.0 cm Med Peak E' Dexter: 6.7 cm/sec Med E/e': 14.9 Lat Peak E' Dexter: 3.2 cm/sec Lat E/e': 31.4 Procedure A two-dimensional transthoracic echocardiogram with color flow and Doppler was performed. The study w as technically difficult with many images being suboptimal in quality. Left Ventricle The left ventricular size, thickness and function are normal. Right Ventricle The right ventricle is not well visualized. Atria The left atrium is moderately dilated. The right atrium is moderately dilated. Mitral Valve The mitral valve is not well visualized. There is no mitral valve stenosis. There is trace to mild mi tral regurgitation. Tricuspid Valve There is mild tricuspid valve thickening. There is no tricuspid stenosis. There was insufficient TR d etected to calculate RV systolic pressure. Aortic Valve The aortic valve is not well visualized. No hemodynamically significant valvular aortic stenosis. No aortic regurgitation is present. Pulmonic Valve The pulmonic valve is not well visualized. Great Vessels The aortic root is normal size. Pericardium/Pleura There is no pericardial effusion. Interpretation Summary Clinical correlation is recommended. The left atrium is moderately dilated. The right atrium is moderately dilated. There was insufficient TR detected to calculate RV systolic pressure. The study was technically difficult with many images being suboptimal in quality. The right ventricle is not well visualized. There is trace to mild mitral regurgitation. Clinical correlation is recommended. MD Serge Downing 03/28/2018 02:28 PM
[2018-03-28] MEDS: ATORVASTATIN CA 20 MG TABLET (FP) PO SCH (21:00)
[2018-03-29 05:57] LABS: HEMATOCRIT 32.3 % (35.4-49); HEMOGLOBIN 11.1 GM/dL (11.7-16.9); MCH 31.5 pg (25.7-33.7); MCHC 34.4 g/dl (32.0-35.9); MEAN CELL VOLUME 91.6 fl (80-96); MEAN PLT VOLUME 8.7 fl (7.5-11.1); PLATELET COUNT 160 K/MM3 (134-434); RBC 3.53 M/mm3 (4.00-5.60); RDW 14.2 % (11.9-15.9); WHITE BLOOD COUNT 11.3 K/mm3 (4.0-10.0)
[2018-03-29 06:36] LABS: CHLORIDE 106 mmol/L (98-107); POTASSIUM 3.8 mmol/L (3.5-5.1); SODIUM 139 mmol/L (136-145)
[2018-03-29 06:49] LABS: ALBUMIN 2.7 g/dl (3.4-5.0); ALK PHOS 74 U/L (45-117); ANION GAP 9 (8-16); BILIRUBIN,TOTAL 0.9 mg/dL (0.2-1.0); BLOOD UREA NITROGEN 10 mg/dL (7-18); CALCIUM 7.8 mg/dL (8.5-10.1); CO2 24 mmol/L (21-32); GLUCOSE,RANDOM 106 mg/dL (74-106); MAGNESIUM 2.1 mg/dL (1.8-2.4); PHOSPHOROUS 3.5 mg/dL (2.5-4.9); SGOT/AST 14 U/L (15-37); SGPT/ALT 16 U/L (12-78); TOT PROT 6.3 g/dl (6.4-8.2)
[2018-03-29] MEDS: HEPARIN NA (PORCINE) 5,000 UNITS/ML 1ML VIAL IVPUSH PRN ×2 (07:01→13:39)
[2018-03-29] MEDS: LEVOTHYROXINE NA 50 MCG TABLET (FP) PO SCH (07:21)
--- NOTE | 2018-03-29 07:52 | PN ---
Teaching Attending Note Name of Resident: Abelardo Sarabia ATTENDING PHYSICIAN STATEMENT I saw and evaluated the patient. I reviewed the resident's note and discussed the case with the resident. I agree with the resident's findings and plan as documented. 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 Presented with RLE pain and numbness and in addition progressive SOB Found to have PAD and underwent thrombectomy with improvement in RLE pain and numbness. Noted to have DVT and sustained a saddle embolus with pulmonary emboli. Currently on heparin therapy. Denies SOB or chest pains. OBJECTIVE:P.E. HEENT: ANAHI, EOM Intact Oropharynx: No thrush, No mucositis Neck: Supple Nodes: Without adenopathy Cor:irregular Lungs: diminished breath sounds Abd: Soft, Normal bowel sounds, No organomegaly Ext:No significant edema;RLE warm with good pulses Skin: No rashes, Integument intact ASSESSMENT AND PLAN: PAD- s/p thrombectomy DVT Saddle embolus with pulmonary emboli Atrial Fi Hx of of WPW Plan: Heparin therapy with 5-7 day bridge to coumadin BMI against NOAC) ECHO for Right heart strain to determine ? of possible selective I.R catherization Thrombophilia assessment in future
[2018-03-29] MEDS: metoPROLOL SUCCINATE 25 MG TAB.SR.24H (FP) PO SCH ×2 (09:38→21:08)
[2018-03-29] MEDS: ASPIRIN 81 MG CHEWABLE TABLETS PO SCH (09:38)
--- NOTE | 2018-03-29 12:10 | PN ---
Progress Note, Physician Chief Complaint: patient seen and examined CTA shows saddle embolus repeat echo today to focus on right ventricle and right heart pressures on heparin drip spoke to dr allen he will speak to patient ortho doc at [facility] regarding shoulder surgery and wants to see repeat echo currently troponins are normal - Current Medication List Current Medications: Active Medications Acetaminophen (Tylenol -) 650 mg PO Q6H PRN PRN Reason: FEVER/PAIN SCALE 1-5 Aspirin (Asa -) 81 mg PO DAILY [facility] Last Admin: 03/29/18 09:38 Dose: 81 mg Atorvastatin Calcium (Lipitor -) 20 mg PO HS [facility] Last Admin: 03/28/18 21:00 Dose: 20 mg Heparin Sodium (Porcine) (Heparin -) 5,000 unit IVPUSH PRN PRN PRN Reason: Heparin Last Admin: 03/29/18 07:01 Dose: 5,000 unit Heparin Sodium (Porcine) (Heparin -) 1,000 unit IVPUSH PRN PRN PRN Reason: Heparin Last Admin: 03/28/18 13:51 Dose: 1,000 unit Heparin Sodium/Dextrose (Heparin Infusion -) 25,000 units in 500 mls @ 20 mls/ hr IVPB TITR [facility]; Protocol Last Titration: 03/29/18 07:00 Dose: 1,850 units/hr, 37 mls/hr Levothyroxine Sodium (Synthroid -) 50 mcg PO DAILY@0700 [facility] Last Admin: 03/29/18 07:21 Dose: 50 mcg Metoprolol Succinate (Toprol Xl -) 75 mg PO BID [facility] Last Admin: 03/29/18 09:38 Dose: 75 mg - Objective Vital Signs: Vital Signs Temperature 99.3 F 03/29/18 10:00 Pulse Rate 112 H 03/29/18 10:00 Respiratory Rate 20 03/29/18 10:00 Blood Pressure 101/74 03/29/18 10:00 O2 Sat by Pulse Oximetry (%) 98 03/29/18 08:35 Constitutional: Yes: Calm Neck: Yes: Trachea Midline Cardiovascular: Yes: Regular Rate and Rhythm, S1, S2 Respiratory: Yes: CTA Bilaterally Gastrointestinal: Yes: Normal Bowel Sounds, Soft Musculoskeletal: Yes: Other (left shoulder scar) Extremities: Yes: Other (groin site has no hematoma,no tenderness DP palpable) Edema: No Neurological: Yes: Alert, Oriented Labs: CBC, BMP 03/29/18 05:30 03/29/18 05:30 INR, PTT INR 1.24 (0.82-1.09) H 03/26/18 11:27 Problem List - Problems (1) Pulmonary embolism Assessment/Plan: CTA done shows acute pulmonary emboli on iv heparin drip IR consulted to get repeat echo today to focus on right ventricle and right heart pressure as it was not well visualized on previous echo done on 03/28 h/o of recent shoulder surgery- Code(s): I26.99 - OTHER PULMONARY EMBOLISM WITHOUT ACUTE COR PULMONALE (2) Arterial occlusion Assessment/Plan: - Note: Operative Date: 03/26/18 Pre-Operative Diagnosis: RLE ischemia Operation: Open thrombectomy right iliac, sfa, Deep profunda artery , with angiogram of right lower extremity. Findings: Embolus removed. Post-Operative Diagnosis: Same as Pre-op Surgeon: Rafi Byrnes Anesthesia: General Estimated Blood Loss (mls): 600 Operative Report Dictated: Yes heparin drip Code(s): I70.90 - UNSPECIFIED ATHEROSCLEROSIS (3) Atrial fibrillation Assessment/Plan: heparin drip metoprolol Code(s): I48.91 - UNSPECIFIED ATRIAL FIBRILLATION Qualifiers: Atrial fibrillation type: unspecified Qualified Code(s): I48.91 - Unspecified atrial fibrillation (4) Hypothyroid Assessment/Plan: on synthroid Code(s): E03.9 - HYPOTHYROIDISM, UNSPECIFIED (5) DVT (deep venous thrombosis) Assessment/Plan: on heparin drip for now will need hypercoaguable work up as outpatient with heme Code(s): I82.409 - ACUTE EMBOLISM AND THOMBOS UNSP DEEP VN UNSP LOWER EXTREMITY Qualifiers: DVT location: lower extremity Affected thrombotic vein of extremity: unspecified vein of extremity Chronicity: acute Laterality: right Qualified Code(s): I82.401 - Acute embolism and thrombosis of unspecified deep veins of right lower extremity
--- NOTE | 2018-03-29 12:11 | PN ---
Physical Exam: SUBJECTIVE: Patient seen and examined at bedside. no acute events overnight. patients HR remained in the low 100's, however he is not feeling short of breath or having palpitations. he denies any N/V fevers or chills. he is not experiencing any pain in the RLE. Patient was found to have saddle PE with bilateral emboli on CTA of the chest. OBJECTIVE: Vital Signs Period Temp Pulse Resp BP Sys/Cooper Pulse Ox Last 24 Hr 98.2 F-99.3 F 90-124 16-20 87-108/66-88 95-98 GENERAL: The patient is awake, alert, and fully oriented, in no acute distress. LUNGS: Breath sounds equal, clear to auscultation bilaterally, no wheezes, no crackles, no accessory muscle use. HEART: tachycardic, S1, S2 without murmur, rub or gallop. ABDOMEN: Soft, nontender, nondistended, normoactive bowel sounds, no guarding, no rebound, no hepatosplenomegaly, no masses. EXTREMITIES: 2+ pulses, warm, well-perfused, no edema. PSYCH: Normal mood, normal affect. SKIN: Warm, dry, normal turgor, no rashes or lesions noted Laboratory Results - last 24 hr 03/28/18 03/28/18 03/28/18 12:15 17:18 18:35 WBC RBC Hgb Hct MCV MCH MCHC RDW Plt Count MPV PTT (Actin FS) 44.8 47.0 H Sodium Potassium Chloride Carbon Dioxide Anion Gap BUN Creatinine Creat Clearance w eGFR Random Glucose Calcium Phosphorus Magnesium Total Bilirubin AST ALT Alkaline Phosphatase Creatine Kinase Troponin I B-Natriuretic Peptide 1863.54 H Total Protein Albumin 03/29/18 03/29/18 03/29/18 05:30 05:30 05:30 WBC 11.3 H RBC 3.53 L Hgb 11.1 L Hct 32.3 L MCV 91.6 MCH 31.5 MCHC 34.4 RDW 14.2 Plt Count 160 MPV 8.7 PTT (Actin FS) 42.9 H Sodium 139 Potassium 3.8 Chloride 106 Carbon Dioxide 24 Anion Gap 9 BUN 10 Creatinine 1.0 Creat Clearance w eGFR > 60 Random Glucose 106 Calcium 7.8 L Phosphorus 3.5 Magnesium 2.1 Total Bilirubin 0.9 AST 14 L ALT 16 Alkaline Phosphatase 74 Creatine Kinase 57 Troponin I < 0.02 B-Natriuretic Peptide Total Protein 6.3 L Albumin 2.7 L Active Medications Generic Name Dose Route Start Last Admin Trade Name Freq PRN Reason Stop Dose Admin Acetaminophen 650 mg 03/27/18 15:27 Tylenol - PO Q6H PRN FEVER/PAIN SCALE 1-5 Aspirin 81 mg 03/28/18 10:00 03/29/18 09:38 Asa - PO 81 mg DAILY PETE Administration Atorvastatin Calcium 20 mg 03/27/18 22:00 03/28/18 21:00 Lipitor - PO 20 mg HS PETE Administration Heparin Sodium (Porcine) 5,000 unit 03/27/18 15:27 03/29/18 07:01 Heparin - IVPUSH 5,000 unit PRN PRN Administration Heparin Heparin Sodium (Porcine) 1,000 unit 03/27/18 15:27 03/28/18 13:51 Heparin - IVPUSH 1,000 unit PRN PRN Administration Heparin Heparin Sodium/Dextrose 25,000 units in 500 mls @ 20 mls/hr 03/27/18 15:27 07:00 Heparin Infusion - IVPB 1,850 units/hr TITR PETE 37 mls/hr Titration Protocol 1,000 UNITS/HR Levothyroxine Sodium 50 mcg 03/28/18 07:00 03/29/18 07:21 Synthroid - PO 50 mcg DAILY@0700 PETE Administration Metoprolol Succinate 75 mg 03/27/18 22:00 03/29/18 09:38 Toprol Xl - PO 75 mg BID PETE Administration ASSESSMENT/PLAN: 62 y/o male with PMH of afib, HTN, DVT on this admission who is s/p RLE embolectomy now found to have saddle PE on CTA of the chest. Currently patient is asymptomatic and is denying any CP or SOB. Pulmonary Embolism: patient found to have saddle PE with B/L emboli on CTA of the chest -patient found to have DVT on duplex study -IR consulted, currently in decision regarding need for thrombolysis at this moment -repeat echo? -repeat BNP -monitor BP and o2 saturations -heparin drip- monitor PTT S/P embolectomy: -patient no longer experiencing pain/numbness in the extremity -pulses palpable Cardio: Afib -currently on heparin drip and receiving toprol XL -continue monitoring HR F/E/N: -monitor electrolytes -currently NPO in case of intervention dispo: continue ICU monitoring Problem List - Problems (1) Arterial occlusion Code(s): I70.90 - UNSPECIFIED ATHEROSCLEROSIS (2) Atrial fibrillation Code(s): I48.91 - UNSPECIFIED ATRIAL FIBRILLATION Qualifiers: Qualified Code(s): I48.91 - Unspecified atrial fibrillation (3) DVT (deep venous thrombosis) Code(s): I82.409 - ACUTE EMBOLISM AND THOMBOS UNSP DEEP VN UNSP LOWER EXTREMITY Qualifiers: Qualified Code(s): I82.401 - Acute embolism and thrombosis of unspecified deep veins of right lower extremity (4) Pulmonary embolism Code(s): I26.99 - OTHER PULMONARY EMBOLISM WITHOUT ACUTE COR PULMONALE Visit type - Emergency Visit Emergency Visit: Yes ED Registration Date: 03/26/18 Care time: The patient presented to the Emergency Department on the above date and was hospitalized for further evaluation of their emergent condition. - New Patient This patient is new to me today: No - Critical Care Critical Care patient: Yes Total Critical Care Time (in minutes): 35 Critical Care Statement: The care of this patient involved high complexity decision making to prevent further life threatening deterioration of the patient 's condition and/or to evaluate & treat vital organ system(s) failure or risk of failure.
--- NOTE | 2018-03-29 12:38 | PN ---
Progress Note (short form) - Note Progress Note: s: no sob cp dizzy palps. still has leg pain from incision, improving. cta shows large bl pe's tele: afib, rate controlled o: Current Medications Generic Name Dose Route Start Last Admin Trade Name Freq PRN Reason Stop Dose Admin Acetaminophen 650 mg 03/27/18 15:27 Tylenol - PO Q6H PRN FEVER/PAIN SCALE 1-5 Aspirin 81 mg 03/28/18 10:00 03/29/18 09:38 Asa - PO 81 mg DAILY PETE Administration Atorvastatin Calcium 20 mg 03/27/18 22:00 03/28/18 21:00 Lipitor - PO 20 mg HS PETE Administration Heparin Sodium (Porcine) 5,000 unit 03/27/18 15:27 03/29/18 07:01 Heparin - IVPUSH 5,000 unit PRN PRN Administration Heparin Heparin Sodium (Porcine) 1,000 unit 03/27/18 15:27 03/28/18 13:51 Heparin - IVPUSH 1,000 unit PRN PRN Administration Heparin Heparin Sodium/Dextrose 25,000 units in 500 mls @ 20 mls/hr 03/27/18 15:27 07:00 Heparin Infusion - IVPB 1,850 units/hr TITR PETE 37 mls/hr Titration Protocol 1,000 UNITS/HR Levothyroxine Sodium 50 mcg 03/28/18 07:00 03/29/18 07:21 Synthroid - PO 50 mcg DAILY@0700 PETE Administration Metoprolol Succinate 75 mg 03/27/18 22:00 03/29/18 09:38 Toprol Xl - PO 75 mg BID PETE Administration Vital Signs Temp 99.3 F 03/29/18 10:00 Pulse 112 H 03/29/18 10:00 Resp 20 03/29/18 10:00 BP 101/74 03/29/18 10:00 Pulse Ox 98 03/29/18 08:35 Intake & Output 03/28/18 03/29/18 03/29/18 23:59 11:59 23:59 Intake Total 1272 120 Output Total 1000 600 Balance 272 -480 Weight 301 lb Intake: IV 372 HEPARIN INFUSION - 25,000 372 units In 500 ml @ 1,000 UNITS/HR 20 mls/hr IVPB TITR PETE Rx#:[id number] Oral 900 120 Output: Urine 1000 600 Das 1000 600 Other: Voiding Method Indwelling Catheter Indwelling Catheter Height 5 ft 9 in Body Mass Index (BMI) 44.4 Weight Measurement Method Built in [facility] Constitutional: Yes: No Distress, Obese Eyes: No: Sclera Icterus HENT: No: Nasal Congestion Respiratory: Yes: CTA Bilaterally. No: Accessory Muscle Use, Rales, Wheezes Gastrointestinal: Yes: Normal Bowel Sounds. No: Distention, Hepatomegaly, Palpable Mass, Tenderness Cardiovascular: Yes: Regular Rate and Rhythm JVD: No Heart Sounds: Yes: S1, S2. No: Gallop Murmur: No: Systolic Murmur, Diastolic Murmur Musculoskeletal: Yes: Other (No kyphosis) Extremities: Yes: Cold (R). No: Cool, Cyanosis Edema: No Peripheral Pulses: 0 Right Dorsalis Pedis, 2+ Left Carotid, 2+ Right Carotid, 2 + Left Doralis Pedis Integumentary: No: Jaundice diaphoresis Neurological: Yes: Alert, Oriented (x3) Psychiatric: No: Agitated Laboratory Last Values WBC 11.3 K/mm3 (4.0-10.0) H 03/29/18 05:30 RBC 3.53 M/mm3 (4.00-5.60) L 03/29/18 05:30 Hgb 11.1 GM/dL (11.7-16.9) L 03/29/18 05:30 Hct 32.3 % (35.4-49) L 03/29/18 05:30 MCV 91.6 fl (80-96) 03/29/18 05:30 MCH 31.5 pg (25.7-33.7) 03/29/18 05:30 MCHC 34.4 g/dl (32.0-35.9) 03/29/18 05:30 RDW 14.2 % (11.9-15.9) 03/29/18 05:30 Plt Count 160 K/MM3 (134-434) 03/29/18 05:30 MPV 8.7 fl (7.5-11.1) 03/29/18 05:30 Absolute Neuts (auto) 8.5 # 03/26/18 11:20 Neutrophils % 81.5 % (42.8-82.8) 03/26/18 11:20 Lymphocytes % 9.6 % (8-40) D 03/26/18 11:20 Monocytes % 7.1 % (3.8-10.2) 03/26/18 11:20 Eosinophils % 1.0 % (0-4.5) 03/26/18 11:20 Basophils % 0.8 % (0-2.0) 03/26/18 11:20 Nucleated RBC % 0 % (0-0) 03/26/18 11:20 PT with INR 14.00 SEC (9.7-13.0) H 03/26/18 11:27 INR 1.24 (0.82-1.09) H 03/26/18 11:27 PTT (Actin FS) 42.9 SECONDS (25.2-36.5) H 03/29/18 05:30 Sodium 139 mmol/L (136-145) 03/29/18 05:30 Potassium 3.8 mmol/L (3.5-5.1) 03/29/18 05:30 Chloride 106 mmol/L (98-107) 03/29/18 05:30 Carbon Dioxide 24 mmol/L (21-32) 03/29/18 05:30 Anion Gap 9 (8-16) 03/29/18 05:30 BUN 10 mg/dL (7-18) 03/29/18 05:30 Creatinine 1.0 mg/dL (0.7-1.3) 03/29/18 05:30 Creat Clearance w eGFR > 60 (>60) 03/29/18 05:30 Random Glucose 106 mg/dL (74-106) 03/29/18 05:30 Calcium 7.8 mg/dL (8.5-10.1) L 03/29/18 05:30 Phosphorus 3.5 mg/dL (2.5-4.9) 03/29/18 05:30 Magnesium 2.1 mg/dL (1.8-2.4) 03/29/18 05:30 Total Bilirubin 0.9 mg/dL (0.2-1.0) 03/29/18 05:30 AST 14 U/L (15-37) L 03/29/18 05:30 ALT 16 U/L (12-78) 03/29/18 05:30 Alkaline Phosphatase 74 U/L (45-117) 03/29/18 05:30 Creatine Kinase 57 IU/L (39-308) 03/29/18 05:30 Troponin I < 0.02 ng/ml (0.00-0.05) 03/29/18 05:30 B-Natriuretic Peptide 1863.54 pg/ml (5-125) H 03/28/18 17:18 Total Protein 6.3 g/dl (6.4-8.2) L 03/29/18 05:30 Albumin 2.7 g/dl (3.4-5.0) L 03/29/18 05:30 TSH 1.30 uIU/ml (0.358-3.74) 03/26/18 11:20 Blood Type A POSITIVE 03/26/18 11:20 Antibody Screen Negative 03/26/18 11:20 Crossmatch See Detail 03/26/18 11:20 Echo 02/12: afib; TDS; nl LV size and LVSF (EF at least 55%). RV tds: ? mild dilation, can't assess RVSF. ? nl LA size. valves WNL. mildly dilated ao root ( 3.9 cm) ECG: afib, no path q's; NSTWAs septal leads cta chest: large saddle pe echo 03/2018: tds, nl lvef, rv tds, kenia, no sig valve path est cct 35 mins a/p: persistent AF: - had not been on AC at home, poor follow up, now on heparin gtt and would start NOAC at discharge for AF and DVT/PE - s/p open thrombectomy of R iliac, SFA, deep profunda, and angiogram and is on heparin gtt, likely related to atheroembolic event from afib - currently on metoprolol 75 mg BID, cont same. cont tele. DVT/PE: -saddle PE seen on cta, pt has no sxs or signs of RHF. Echo was tds for rv strain. I reviewed echo images and ra and rv appear dilated. RV fcn appears nl. Pt will have repeat echo today to better image rv. If rv strain present then would consider IR thrombolysis. -also with distal SFV and popliteal vein thrombus on duplex, recent shoulder surgery -heme following hypothyroidism: - on synthroid, manage per primary team
--- NOTE | 2018-03-29 12:38 | PN ---
Teaching Attending Note Name of Resident: Viri Lucero ATTENDING PHYSICIAN STATEMENT I saw and evaluated the patient. I reviewed the resident's note and discussed the case with the resident. I agree with the resident's findings and plan as documented. SUBJECTIVE: Patient seen and examined in the ICU. No CP or SOB. Remains tachycardic and elevated BNP. Denies shortness of breath, chest pain, or palpitations. To be assessed by IR today for possible intervention. OBJECTIVE: Intake & Output 03/26/18 03/27/18 03/28/18 03/29/18 23:59 23:59 23:59 23:59 Intake Total 1940 1479 1432 120 Output Total 1200 1750 1320 600 Balance 740 -271 112 -480 Weight 300 lb 301 lb 3 oz 301 lb 8 oz 301 lb Last Vital Signs Temp Pulse Resp BP Pulse Ox 99.3 F 112 H 20 101/74 98 03/29/18 10:00 03/29/18 10:00 03/29/18 10:00 03/29/18 10:00 03/29/18 08:35 Active Medications Acetaminophen (Tylenol -) 650 mg PO Q6H PRN PRN Reason: FEVER/PAIN SCALE 1-5 Aspirin (Asa -) 81 mg PO DAILY [facility] Last Admin: 03/29/18 09:38 Dose: 81 mg Atorvastatin Calcium (Lipitor -) 20 mg PO HS [facility] Last Admin: 03/28/18 21:00 Dose: 20 mg Heparin Sodium (Porcine) (Heparin -) 5,000 unit IVPUSH PRN PRN PRN Reason: Heparin Last Admin: 03/29/18 07:01 Dose: 5,000 unit Heparin Sodium (Porcine) (Heparin -) 1,000 unit IVPUSH PRN PRN PRN Reason: Heparin Last Admin: 03/28/18 13:51 Dose: 1,000 unit Heparin Sodium/Dextrose (Heparin Infusion -) 25,000 units in 500 mls @ 20 mls/ hr IVPB TITR [facility]; Protocol Last Titration: 03/29/18 07:00 Dose: 1,850 units/hr, 37 mls/hr Levothyroxine Sodium (Synthroid -) 50 mcg PO DAILY@0700 [facility] Last Admin: 03/29/18 07:21 Dose: 50 mcg Metoprolol Succinate (Toprol Xl -) 75 mg PO BID [facility] Last Admin: 03/29/18 09:38 Dose: 75 mg Gen: mildly tachypneic at rest Heart: tachycardic, regular Lung: decreased breath sounds at the bases Abd: soft, nontender Ext: + edema Laboratory Results - last 24 hr 03/28/18 03/28/18 03/28/18 12:15 17:18 18:35 WBC RBC Hgb Hct MCV MCH MCHC RDW Plt Count MPV PTT (Actin FS) 44.8 47.0 H Sodium Potassium Chloride Carbon Dioxide Anion Gap BUN Creatinine Creat Clearance w eGFR Random Glucose Calcium Phosphorus Magnesium Total Bilirubin AST ALT Alkaline Phosphatase Creatine Kinase Troponin I B-Natriuretic Peptide 1863.54 H Total Protein Albumin 03/29/18 03/29/18 03/29/18 05:30 05:30 05:30 WBC 11.3 H RBC 3.53 L Hgb 11.1 L Hct 32.3 L MCV 91.6 MCH 31.5 MCHC 34.4 RDW 14.2 Plt Count 160 MPV 8.7 PTT (Actin FS) 42.9 H Sodium 139 Potassium 3.8 Chloride 106 Carbon Dioxide 24 Anion Gap 9 BUN 10 Creatinine 1.0 Creat Clearance w eGFR > 60 Random Glucose 106 Calcium 7.8 L Phosphorus 3.5 Magnesium 2.1 Total Bilirubin 0.9 AST 14 L ALT 16 Alkaline Phosphatase 74 Creatine Kinase 57 Troponin I < 0.02 B-Natriuretic Peptide Total Protein 6.3 L Albumin 2.7 L ASSESSMENT AND PLAN: PAD/R iliac/SFA/deep profunda thrombus s/o open thrombectomy Acute Pulmonary Emboli RLE DVT Atrial Fibrillation Hypothyroidism - continue anticoagulation with IV Heparin - IR to evaluate for the appropriateness for catheter directed thrombectomy/ thrombolysis - Rate control - O2 to keep SpO2 >90% - ICU monitoring Dr Horta Critical care time spent in reviewing chart, evaluating patient and formulating plan 35 min
--- NOTE | 2018-03-29 13:31 | ECHO ---
Name: CHANDRAKANT MAIER Exam:Adult Echocardiogram Study Date: 03/29/2018 12:46 PM Age: 62 yrs Reason For Study: PULMONARY EMBOLUS Height: 69 in Weight: 301 lb BSA: 2.5 m2 Procedure A limited two-dimensional transthoracic echocardiogram was performed (2D). Left Ventricle Left ventricular systolic function is normal. Right Ventricle Right ventricle is not seen well but appears mildly dilated. Interpretation Summary Limited study to evaluate for right sided strain in setting of PE. Study was technically difficult. Left ventricular systolic function is normal. Right ventricle is not seen well but appears mildly dilated. Unable to comment on RV function. MD Javier Ugalde 03/29/2018 01:31 PM
[2018-03-29] MEDS: HEPARIN INFUSION - 25,000 UNITS/500 ML INFUS.BAG IVPB SCH (14:45)
[2018-03-29] MEDS ORDERED: DEXTROSE 5%-0.45% SALINE 1,000 ML IV SCH (19:45)
[2018-03-29] MEDS: ATORVASTATIN CA 20 MG TABLET (FP) PO SCH (21:08)
[2018-03-30 05:50] LABS: BASO % 0.4 % (0-2.0); EOS % 0.8 % (0-4.5); HEMATOCRIT 31.6 % (35.4-49); HEMOGLOBIN 10.9 GM/dL (11.7-16.9); LYMPH % 10.4 % (8-40); MCH 31.5 pg (25.7-33.7); MCHC 34.5 g/dl (32.0-35.9); MEAN CELL VOLUME 91.4 fl (80-96); MEAN PLT VOLUME 9.2 fl (7.5-11.1); MONO % 12.5 % (3.8-10.2); NEUT % 75.9 % (42.8-82.8); PLATELET COUNT 198 K/MM3 (134-434); RBC 3.46 M/mm3 (4.00-5.60); RDW 14.3 % (11.9-15.9); WHITE BLOOD COUNT 10.1 K/mm3 (4.0-10.0)
[2018-03-30] MEDS: LEVOTHYROXINE NA 50 MCG TABLET (FP) PO SCH (06:16)
[2018-03-30 06:43] LABS: ALBUMIN 2.6 g/dl (3.4-5.0); ALK PHOS 85 U/L (45-117); ANION GAP 9 (8-16); BILIRUBIN,TOTAL 1.1 mg/dL (0.2-1.0); BLOOD UREA NITROGEN 11 mg/dL (7-18); CHLORIDE 103 mmol/L (98-107); CO2 26 mmol/L (21-32); GLUCOSE,RANDOM 116 mg/dL (74-106); MAGNESIUM 2.2 mg/dL (1.8-2.4); PHOSPHOROUS 3.7 mg/dL (2.5-4.9); POTASSIUM 3.8 mmol/L (3.5-5.1); SGOT/AST 15 U/L (15-37); SGPT/ALT 19 U/L (12-78); SODIUM 138 mmol/L (136-145); TOT PROT 6.3 g/dl (6.4-8.2)
[2018-03-30] MEDS: HEPARIN NA (PORCINE) 5,000 UNITS/ML 1ML VIAL IVPUSH PRN (06:45)
[2018-03-30] MEDS ORDERED: fentaNYL CITRATE 250 MCG/5 ML VIAL ONE (09:20)
--- NOTE | 2018-03-30 09:35 | PN ---
Progress Note (short form) - Note Progress Note: Vascular Surgery: Pt awaiting possible thrombolysis of PE today, he remains npo. Denies pain to his right foot. No SOB/CP. Vital Signs Period Temp Pulse Resp BP Sys/Cooper Pulse Ox Last 24 Hr 98.0 F-99.4 F 97-124 14-20 89-119/55-93 98-98 GEN: appears comfortable RIght groin: dressing changed. Incision c/d/i with mahesh. No masses noted, no erythema. Right foot warm and with +2DP pulse. CBC, BMP 03/30/18 05:30 03/30/18 05:30 Laboratory Tests 03/30/18 05:30 PTT (Actin FS) 47.1 H A/P: 62 yo male s/p Exploration of spinal fusion, Removal of sublaminal wires, C2-T1 Laminectomies, C7-T1 osteotomies, C2-T1 deformity correction with posterior fusion, Removal of anterior instrumentation, C4/C5 corpectomies, Reconstruction with Peek cages and anterior plating, POD#4 For possible IR thrombolysis of saddle PE today Continue IV Heparin Right foot warm with DP pulse, dressing changes ordered D/w Dr Byrnes
[2018-03-30] MEDS: metoPROLOL SUCCINATE 25 MG TAB.SR.24H (FP) PO SCH ×2 (09:59→21:17)
[2018-03-30] MEDS: ASPIRIN 81 MG CHEWABLE TABLETS PO SCH (09:59)
--- NOTE | 2018-03-30 11:02 | PN ---
Progress Note, Physician Chief Complaint: DVT PE History of Present Illness: NAD Son at bedside Discussion as whether to proceed with IR for Saddle PE. S/P thrombectomy for DVT Seen by Hemetology On Heparin drip On tele monitoring-afib rate controlled Denies any SOB, chest pain or any other associated symptom - Current Medication List Current Medications: Active Medications Acetaminophen (Tylenol -) 650 mg PO Q6H PRN PRN Reason: FEVER/PAIN SCALE 1-5 Aspirin (Asa -) 81 mg PO DAILY [facility] [place] Last Admin: 03/30/18 09:59 Dose: 81 mg Atorvastatin Calcium (Lipitor -) 20 mg PO HS [facility] [place] Last Admin: 03/29/18 21:08 Dose: 20 mg Heparin Sodium (Porcine) (Heparin -) 5,000 unit IVPUSH PRN PRN PRN Reason: Heparin Last Admin: 03/29/18 07:01 Dose: 5,000 unit Heparin Sodium (Porcine) (Heparin -) 1,000 unit IVPUSH PRN PRN PRN Reason: Heparin Last Admin: 03/30/18 06:45 Dose: 1,000 unit Heparin Sodium/Dextrose (Heparin Infusion -) 25,000 units in 500 mls @ 20 mls/ hr IVPB TITR [facility] [place]; Protocol Last Titration: 03/30/18 06:45 Dose: 2,050 units/hr, 41 mls/hr Dextrose/Sodium Chloride (D5-1/2ns -) 1,000 mls @ 42 mls/hr IV ASDIR [facility] [place] Last Admin: 03/29/18 19:48 Dose: 42 mls/hr Levothyroxine Sodium (Synthroid -) 50 mcg PO DAILY@0700 [facility] Last Admin: 03/30/18 06:16 Dose: 50 mcg Metoprolol Succinate (Toprol Xl -) 75 mg PO BID [facility] [place] Last Admin: 03/30/18 09:59 Dose: 75 mg - Objective Vital Signs: Vital Signs Temperature 98.6 F 03/30/18 08:00 Pulse Rate 108 H 03/30/18 10:00 Respiratory Rate 22 03/30/18 10:00 Blood Pressure 105/82 03/30/18 10:00 O2 Sat by Pulse Oximetry (%) 98 03/30/18 08:00 Constitutional: Yes: No Distress, Calm, Obese Cardiovascular: Yes: Pulse Irregular Respiratory: Yes: Regular Gastrointestinal: Yes: Normal Bowel Sounds, Soft, Abdomen, Obese Breast(s): Yes: WNL Musculoskeletal: Yes: WNL Neurological: Yes: Alert, Oriented Psychiatric: Yes: Alert, Oriented Labs: CBC, BMP 03/30/18 05:30 03/30/18 05:30 INR, PTT INR 1.24 (0.82-1.09) H 03/26/18 11:27 Problem List - Problems (1) Atrial fibrillation Assessment/Plan: -Chronic -Was on AC outpatient with poor compliance -Currently on Heparin drip Code(s): I48.91 - UNSPECIFIED ATRIAL FIBRILLATION Qualifiers: Atrial fibrillation type: unspecified Qualified Code(s): I48.91 - Unspecified atrial fibrillation (2) DVT (deep venous thrombosis) Assessment/Plan: -Provoked 2/2 to travel and recent major shoulder surgery -S/P thrombectomy -On heparin drip -Bridge to coumadin -Daily INR checks Code(s): I82.409 - ACUTE EMBOLISM AND THOMBOS UNSP DEEP VN UNSP LOWER EXTREMITY Qualifiers: DVT location: lower extremity Affected thrombotic vein of extremity: unspecified vein of extremity Chronicity: acute Laterality: right Qualified Code(s): I82.401 - Acute embolism and thrombosis of unspecified deep veins of right lower extremity (3) Pulmonary embolism Assessment/Plan: -saddle PE seen on Chest CTA -Echo done with no signs of RHF -Seen by Pulmonary and Cardiology -Hematology on board -On heparin drip, bridge to Coumadin until therapeutic with INR between 2-3 -No IR intervention recommended at this time, no benefit, pt w/o any S&S -Had extensive discussion between patient and son and Pulmonary, all questions addressed. -restart Low sodium diet Code(s): I26.99 - OTHER PULMONARY EMBOLISM WITHOUT ACUTE COR PULMONALE (4) Anemia Assessment/Plan: -gradual drop -Stool OB pending -Check Iron profile and B 12 -Monitor trend Code(s): D64.9 - ANEMIA, UNSPECIFIED Assessment/Plan see problem list
--- NOTE | 2018-03-30 12:40 | PN ---
Teaching Attending Note Name of Resident: Viri Lucero ATTENDING PHYSICIAN STATEMENT I saw and evaluated the patient. I reviewed the resident's note and discussed the case with the resident. I agree with the resident's findings and plan as documented. SUBJECTIVE: Patient seen and examined in the ICU. No CP or SOB. Denies shortness of breath, chest pain, or palpitations. Overall has been clinically improving. D/W cardiology. Although ECHO windows are suboptimal, there is no gross evidence of Right Heart Failure/Strain. There is also no clinical evidence of right heart failure. OBJECTIVE: Intake & Output 03/27/18 03/28/18 03/29/18 03/30/18 23:59 23:59 23:59 23:59 Intake Total 1479 1432 942 617 Output Total 1750 1320 2500 400 Balance -271 112 -1558 217 Weight 301 lb 3 oz 301 lb 8 oz 301 lb 301 lb Last Vital Signs Temp Pulse Resp BP Pulse Ox 98.6 F 107 H 19 106/84 98 03/30/18 08:00 03/30/18 12:00 03/30/18 12:00 03/30/18 12:00 03/30/18 08:00 Active Medications Acetaminophen (Tylenol -) 650 mg PO Q6H PRN PRN Reason: FEVER/PAIN SCALE 1-5 Aspirin (Asa -) 81 mg PO DAILY [facility] Last Admin: 03/30/18 09:59 Dose: 81 mg Atorvastatin Calcium (Lipitor -) 20 mg PO HS [facility] Last Admin: 03/29/18 21:08 Dose: 20 mg Heparin Sodium (Porcine) (Heparin -) 5,000 unit IVPUSH PRN PRN PRN Reason: Heparin Last Admin: 03/29/18 07:01 Dose: 5,000 unit Heparin Sodium (Porcine) (Heparin -) 1,000 unit IVPUSH PRN PRN PRN Reason: Heparin Last Admin: 03/30/18 06:45 Dose: 1,000 unit Heparin Sodium/Dextrose (Heparin Infusion -) 25,000 units in 500 mls @ 20 mls/ hr IVPB TITR [facility]; Protocol Last Titration: 03/30/18 06:45 Dose: 2,050 units/hr, 41 mls/hr Dextrose/Sodium Chloride (D5-1/2ns -) 1,000 mls @ 42 mls/hr IV ASDIR [facility] Last Admin: 03/29/18 19:48 Dose: 42 mls/hr Levothyroxine Sodium (Synthroid -) 50 mcg PO DAILY@0700 [facility] Last Admin: 03/30/18 06:16 Dose: 50 mcg Metoprolol Succinate (Toprol Xl -) 75 mg PO BID [facility] Last Admin: 03/30/18 09:59 Dose: 75 mg Gen: Awake and alert, NAD Heart: tachycardic, regular Lung: decreased breath sounds at the bases Abd: soft, nontender Ext: + edema Laboratory Results - last 24 hr 03/28/18 03/28/18 03/28/18 12:15 17:18 18:35 WBC RBC Hgb Hct MCV MCH MCHC RDW Plt Count MPV PTT (Actin FS) 44.8 47.0 H Sodium Potassium Chloride Carbon Dioxide Anion Gap BUN Creatinine Creat Clearance w eGFR Random Glucose Calcium Phosphorus Magnesium Total Bilirubin AST ALT Alkaline Phosphatase Creatine Kinase Troponin I B-Natriuretic Peptide 1863.54 H Total Protein Albumin 03/29/18 03/29/18 03/29/18 05:30 05:30 05:30 WBC 11.3 H RBC 3.53 L Hgb 11.1 L Hct 32.3 L MCV 91.6 MCH 31.5 MCHC 34.4 RDW 14.2 Plt Count 160 MPV 8.7 PTT (Actin FS) 42.9 H Sodium 139 Potassium 3.8 Chloride 106 Carbon Dioxide 24 Anion Gap 9 BUN 10 Creatinine 1.0 Creat Clearance w eGFR > 60 Random Glucose 106 Calcium 7.8 L Phosphorus 3.5 Magnesium 2.1 Total Bilirubin 0.9 AST 14 L ALT 16 Alkaline Phosphatase 74 Creatine Kinase 57 Troponin I < 0.02 B-Natriuretic Peptide Total Protein 6.3 L Albumin 2.7 L ASSESSMENT AND PLAN: Bilateral extensive PE / Saddle Embolism PAD/R iliac/SFA/deep profunda thrombus S/P Open Thrombectomy RLE DVT Atrial Fibrillation Hypothyroidism - Long discussion with Cardiology and then with the patient: No significant evidence that IR intervention will be a benefit as there no significant evidence on ECHO or clinically for Right Heart Failure. Will bridge IV Heparin with Coumadin. NOAC deferred due to morbid obesity. - Rate control - O2 to keep SpO2 >90% - Cardiac Telemetry monitoring Dr Horta Critical care time spent in reviewing chart, evaluating patient and formulating plan 35 min
--- NOTE | 2018-03-30 13:14 | PN ---
Progress Note (short form) - Note Progress Note: s: no sob cp dizzy palps. still has leg pain from incision, improving. tele: afib, rate controlled o: Vital Signs Temp 98.6 F 03/30/18 08:00 Pulse 107 H 03/30/18 12:00 Resp 19 03/30/18 12:00 BP 106/84 03/30/18 12:00 Pulse Ox 98 03/30/18 08:00 Intake & Output 03/29/18 03/30/18 03/30/18 23:59 11:59 23:59 Intake Total 822 617 Output Total 1900 400 Balance -1078 217 Weight 301 lb Intake: IV 772 567 D5-1/2Ns - 1,000 ml @ 42 168 294 mls/hr IV ASDIR [facility] Rx#: [id number] HEPARIN INFUSION - 25,000 604 273 units In 500 ml @ 1,000 UNITS/HR 20 mls/hr IVPB TITR [facility] Rx#:[id number] Oral 50 50 Output: Urine 1900 400 Das 1900 400 Other: Voiding Method Indwelling Catheter Indwelling Catheter Bowel Movement No No Constitutional: Yes: No Distress, Obese Eyes: No: Sclera Icterus HENT: No: Nasal Congestion Respiratory: Yes: CTA Bilaterally. No: Accessory Muscle Use, Rales, Wheezes Gastrointestinal: Yes: Normal Bowel Sounds. No: Distention, Hepatomegaly, Palpable Mass, Tenderness Cardiovascular: Yes: Regular Rate and Rhythm JVD: No Heart Sounds: Yes: S1, S2. No: Gallop Murmur: No: Systolic Murmur, Diastolic Murmur Musculoskeletal: Yes: Other (No kyphosis) Extremities: Yes: Cold (R). No: Cool, Cyanosis Edema: No Peripheral Pulses: 0 Right Dorsalis Pedis, 2+ Left Carotid, 2+ Right Carotid, 2 + Left Doralis Pedis Integumentary: No: Jaundice diaphoresis Neurological: Yes: Alert, Oriented (x3) Psychiatric: No: Agitated Current Medications Generic Name Dose Route Start Last Admin Trade Name Freq PRN Reason Stop Dose Admin Acetaminophen 650 mg 03/27/18 15:27 Tylenol - PO Q6H PRN FEVER/PAIN SCALE 1-5 Aspirin 81 mg 03/28/18 10:00 03/30/18 09:59 Asa - PO 81 mg DAILY [facility] Administration Atorvastatin Calcium 20 mg 07/31/18 22:00 03/29/18 21:08 Lipitor - PO 20 mg HS [facility] Administration Heparin Sodium (Porcine) 5,000 unit 03/27/18 15:27 03/29/18 07:01 Heparin - IVPUSH 5,000 unit PRN PRN Administration Heparin Heparin Sodium (Porcine) 1,000 unit 03/27/18 15:27 03/30/18 06:45 Heparin - IVPUSH 1,000 unit PRN PRN Administration Heparin Heparin Sodium/Dextrose 25,000 units in 500 mls @ 20 mls/hr 03/27/18 15:27 06:45 Heparin Infusion - IVPB 2,050 units/hr TITR [facility] 41 mls/hr Titration Protocol 1,000 UNITS/HR Dextrose/Sodium Chloride 1,000 mls @ 42 mls/hr 03/29/18 19:45 03/29/18 19:48 D5-1/2ns - IV 42 mls/hr ASDIR [facility] Administration Levothyroxine Sodium 50 mcg 03/28/18 07:00 03/30/18 06:16 Synthroid - PO 50 mcg DAILY@0700 [facility] Administration Metoprolol Succinate 75 mg 03/27/18 22:00 03/30/18 09:59 Toprol Xl - PO 75 mg BID [facility] Administration Laboratory Last Values WBC 10.1 K/mm3 (4.0-10.0) H 03/30/18 05:30 RBC 3.46 M/mm3 (4.00-5.60) L 03/30/18 05:30 Hgb 10.9 GM/dL (11.7-16.9) L 03/30/18 05:30 Hct 31.6 % (35.4-49) L 03/30/18 05:30 MCV 91.4 fl (80-96) 03/30/18 05:30 MCH 31.5 pg (25.7-33.7) 03/30/18 05:30 MCHC 34.5 g/dl (32.0-35.9) 03/30/18 05:30 RDW 14.3 % (11.9-15.9) 03/30/18 05:30 Plt Count 198 K/MM3 (134-434) D 03/30/18 05:30 MPV 9.2 fl (7.5-11.1) 03/30/18 05:30 Absolute Neuts (auto) 7.7 # 03/30/18 05:30 Neutrophils % 75.9 % (42.8-82.8) 03/30/18 05:30 Lymphocytes % 10.4 % (8-40) 03/30/18 05:30 Monocytes % 12.5 % (3.8-10.2) H 03/30/18 05:30 Eosinophils % 0.8 % (0-4.5) 03/30/18 05:30 Basophils % 0.4 % (0-2.0) 03/30/18 05:30 Nucleated RBC % 0 % (0-0) 03/30/18 05:30 PT with INR 14.00 SEC (9.7-13.0) H 03/26/18 11:27 INR 1.24 (0.82-1.09) H 03/26/18 11:27 PTT (Actin FS) 53.7 SECONDS (25.2-36.5) H 03/30/18 10:10 Sodium 138 mmol/L (136-145) 03/30/18 05:30 Potassium 3.8 mmol/L (3.5-5.1) 03/30/18 05:30 Chloride 103 mmol/L (98-107) 03/30/18 05:30 Carbon Dioxide 26 mmol/L (21-32) 03/30/18 05:30 Anion Gap 9 (8-16) 03/30/18 05:30 BUN 11 mg/dL (7-18) 03/30/18 05:30 Creatinine 1.0 mg/dL (0.7-1.3) 03/30/18 05:30 Creat Clearance w eGFR > 60 (>60) 03/30/18 05:30 Random Glucose 116 mg/dL (74-106) H 03/30/18 05:30 Calcium 8.0 mg/dL (8.5-10.1) L 03/30/18 05:30 Phosphorus 3.7 mg/dL (2.5-4.9) 03/30/18 05:30 Magnesium 2.2 mg/dL (1.8-2.4) 03/30/18 05:30 Total Bilirubin 1.1 mg/dL (0.2-1.0) H 03/30/18 05:30 AST 15 U/L (15-37) 03/30/18 05:30 ALT 19 U/L (12-78) 03/30/18 05:30 Alkaline Phosphatase 85 U/L (45-117) D 03/30/18 05:30 Creatine Kinase 57 IU/L (39-308) 03/29/18 05:30 Troponin I < 0.02 ng/ml (0.00-0.05) 03/29/18 05:30 B-Natriuretic Peptide 1573.20 pg/ml (5-125) H 03/30/18 05:30 Total Protein 6.3 g/dl (6.4-8.2) L 03/30/18 05:30 Albumin 2.6 g/dl (3.4-5.0) L 03/30/18 05:30 TSH 1.30 uIU/ml (0.358-3.74) 03/26/18 11:20 Blood Type A POSITIVE 03/26/18 11:20 Antibody Screen Negative 03/26/18 11:20 Crossmatch See Detail 03/26/18 11:20 Echo 02/12: afib; TDS; nl LV size and LVSF (EF at least 55%). RV tds: ? mild dilation, can't assess RVSF. ? nl LA size. valves WNL. mildly dilated ao root ( 3.9 cm) ECG: afib, no path q's; NSTWAs septal leads cta chest: large saddle pe echo 03/2018: tds, nl lvef, rv tds, kenia, no sig valve path est cct 35 mins a/p: persistent AF: - had not been on AC at home, poor follow up, now on heparin gtt - s/p open thrombectomy of R iliac, SFA, deep profunda, and angiogram and is on heparin gtt, likely related to atheroembolic event from afib - currently on metoprolol 75 mg BID, cont same. cont tele. DVT/PE: -saddle PE seen on cta, pt has no sxs or signs of RHF. Due to pt body habitus two echos were tds for rv strain. I reviewed echo images myself and cannot definitively see evidence of RV failure. Clinically he has no signs RHF. D/w crit care team and given that he has no definite signs of right heart failure, agree that IR thrombolysis will likely be of no benefit at this time since he is otherwise stable. -also with distal SFV and popliteal vein thrombus on duplex, recent shoulder surgery -heme following hypothyroidism: - on synthroid, manage per primary team
[2018-03-30] MEDS ORDERED: ENOXAPARIN NA (PORCINE) 120 MG/0.8 ML DISP.SYRIN SQ SCH (13:30)
--- NOTE | 2018-03-30 14:42 | PN ---
Physical Exam: SUBJECTIVE: Patient seen and examined at bedside. no acute complaints overnight. patient denies any CP or palpitations. patient went for repeat echo yesterday which showed possible RV dilatation however was difficult to view. Patient is no longer experiencing pain in his RLE. OBJECTIVE: Vital Signs Period Temp Pulse Resp BP Sys/Cooper Pulse Ox Last 24 Hr 98.0 F-99 F 97-124 14-24 89-119/62-93 98-98 GENERAL: The patient is awake, alert, and fully oriented, in no acute distress. LUNGS: Breath sounds equal, clear to auscultation bilaterally, no wheezes, no crackles, no accessory muscle use. HEART: tachycardic, S1, S2 without murmur, rub or gallop. ABDOMEN: Soft, nontender, nondistended, normoactive bowel sounds, no guarding, no rebound, no hepatosplenomegaly, no masses. EXTREMITIES: 2+ pulses, warm, well-perfused, no edema. . PSYCH: Normal mood, normal affect. SKIN: Warm, dry, normal turgor, no rashes or lesions noted Laboratory Results - last 24 hr 03/26/18 03/29/18 03/29/18 11:20 16:00 18:30 WBC RBC Hgb Hct MCV MCH MCHC RDW Plt Count MPV Absolute Neuts (auto) Neutrophils % Lymphocytes % Monocytes % Eosinophils % Basophils % Nucleated RBC % PTT (Actin FS) 53.5 H 50.2 H Sodium Potassium Chloride Carbon Dioxide Anion Gap BUN Creatinine Creat Clearance w eGFR Random Glucose Calcium Phosphorus Magnesium Total Bilirubin AST ALT Alkaline Phosphatase B-Natriuretic Peptide Total Protein Albumin Blood Type A POSITIVE Antibody Screen Negative Crossmatch See Detail 03/30/18 03/30/18 03/30/18 05:30 05:30 05:30 WBC 10.1 H RBC 3.46 L Hgb 10.9 L Hct 31.6 L MCV 91.4 MCH 31.5 MCHC 34.5 RDW 14.3 Plt Count 198 D MPV 9.2 Absolute Neuts (auto) 7.7 Neutrophils % 75.9 Lymphocytes % 10.4 Monocytes % 12.5 H Eosinophils % 0.8 Basophils % 0.4 Nucleated RBC % 0 PTT (Actin FS) 47.1 H Sodium 138 Potassium 3.8 Chloride 103 Carbon Dioxide 26 Anion Gap 9 BUN 11 Creatinine 1.0 Creat Clearance w eGFR > 60 Random Glucose 116 H Calcium 8.0 L Phosphorus 3.7 Magnesium 2.2 Total Bilirubin 1.1 H AST 15 ALT 19 Alkaline Phosphatase 85 D B-Natriuretic Peptide Total Protein 6.3 L Albumin 2.6 L Blood Type Antibody Screen Crossmatch 03/30/18 03/30/18 03/30/18 05:30 10:10 13:15 WBC RBC Hgb Hct MCV MCH MCHC RDW Plt Count MPV Absolute Neuts (auto) Neutrophils % Lymphocytes % Monocytes % Eosinophils % Basophils % Nucleated RBC % PTT (Actin FS) 53.7 H 49.7 H Sodium Potassium Chloride Carbon Dioxide Anion Gap BUN Creatinine Creat Clearance w eGFR Random Glucose Calcium Phosphorus Magnesium Total Bilirubin AST ALT Alkaline Phosphatase B-Natriuretic Peptide 1573.20 H Total Protein Albumin Blood Type Antibody Screen Crossmatch Active Medications Generic Name Dose Route Start Last Admin Trade Name Freq PRN Reason Stop Dose Admin Acetaminophen 650 mg 03/27/18 15:27 Tylenol - PO Q6H PRN FEVER/PAIN SCALE 1-5 Aspirin 81 mg 03/28/18 10:00 03/30/18 09:59 Asa - PO 81 mg DAILY [facility] Administration Atorvastatin Calcium 20 mg 03/27/18 22:00 03/29/18 21:08 Lipitor - PO 20 mg HS [facility] Administration Enoxaparin Sodium 100 mg/ 130 mg 03/30/18 14:00 Enoxaparin Sodium 30 mg SQ BID [facility] Dextrose/Sodium Chloride 1,000 mls @ 42 mls/hr 03/29/18 19:45 03/29/18 19:48 D5-1/2ns - IV 42 mls/hr ASDIR [facility] Administration Levothyroxine Sodium 50 mcg 03/28/18 07:00 03/30/18 06:16 Synthroid - PO 50 mcg DAILY@0700 [facility] Administration Metoprolol Succinate 75 mg 03/27/18 22:00 03/30/18 09:59 Toprol Xl - PO 75 mg BID [facility] Administration Warfarin Sodium 7.5 mg 03/30/18 18:00 Coumadin - PO DAILY@1800 [facility] ASSESSMENT/PLAN: 62 y/o male with PMH of Afib (not on AC), HTN, DVT found on this admisison who is S/P RLE embolectomy, is now found to have a saddle PE with B/L emboli. After discussions with cardiology and IR patient will not be undergoing thrombolysis, given the images found on echo and no clinical evidence of heart failure currently. Pulmonary Embolism: patient not going for thrombolysis -start Lovenox 130mg sqBID while bridging to Coumadin 7.5mg -follow up INR -monitor HR's -monitor 02 saturations S/P Embolectomy: -still experiencing pain at sight of embolectomy -no longer experiencing pain/numbness in LE Cardio: Afib/HTN/HLD -bridging lovenox to coumadin -monitor HR's -continue with toprol XL -continue with lipitor -c/w ASA prophylaxis: GI: F/E/N -monitor electrolytes -normal diet dispo: transfer to telemetry Problem List - Problems (1) Arterial occlusion Code(s): I70.90 - UNSPECIFIED ATHEROSCLEROSIS (2) Atrial fibrillation Code(s): I48.91 - UNSPECIFIED ATRIAL FIBRILLATION Qualifiers: Atrial fibrillation type: unspecified Qualified Code(s): I48.91 - Unspecified atrial fibrillation (3) DVT (deep venous thrombosis) Code(s): I82.409 - ACUTE EMBOLISM AND THOMBOS UNSP DEEP VN UNSP LOWER EXTREMITY Qualifiers: DVT location: lower extremity Affected thrombotic vein of extremity: unspecified vein of extremity Chronicity: acute Laterality: right Qualified Code(s): I82.401 - Acute embolism and thrombosis of unspecified deep veins of right lower extremity (4) Pulmonary embolism Code(s): I26.99 - OTHER PULMONARY EMBOLISM WITHOUT ACUTE COR PULMONALE Visit type - Emergency Visit Emergency Visit: Yes ED Registration Date: 03/26/18 Care time: The patient presented to the Emergency Department on the above date and was hospitalized for further evaluation of their emergent condition. - New Patient This patient is new to me today: No - Critical Care Critical Care patient: Yes Total Critical Care Time (in minutes): 35 Critical Care Statement: The care of this patient involved high complexity decision making to prevent further life threatening deterioration of the patient 's condition and/or to evaluate & treat vital organ system(s) failure or risk of failure.
[2018-03-30] MEDS: ENOXAPARIN 100 MG, ENOXAPARIN 30 MG SQ SCH ×2 (15:00→21:18)
[2018-03-30] MEDS ORDERED: METOPROLOL TARTRATE 5 MG/5 ML VIAL ONE (15:26)
[2018-03-30] MEDS ORDERED: METOPROLOL TARTRATE 5 MG/5 ML VIAL IVPUSH ONE ×3 (15:30→18:00)
[2018-03-30 15:57] LABS: INR 1.53 (0.83-1.09); PROTHROMBIN TIME (PATIENT) 17.3 SEC (9.7-13.0)
[2018-03-30] MEDS: WARFARIN NA 7.5 MG TABLET (FP) PO SCH (17:51)
--- NOTE | 2018-03-30 17:54 | PN ---
Physical Exam: Hematology-oncology SUBJECTIVE: Patient seen and examined no acute complaints overnight. patient denies chest pain. OBJECTIVE: Vital Signs Period Temp Pulse Resp BP Sys/Cooper Pulse Ox Last 24 Hr 98.0 F-99.3 F 97-152 14-24 89-118/62-86 98-98 GENERAL: Awake, alert, and fully oriented, in no acute distress. HEAD: Normal with no signs of trauma. EYES: conjunctiva clear. EARS, NOSE, THROAT: Moist mucous membranes. NECK: Normal range of motion, supple without lymphadenopathy, LUNGS: Breath sounds equal, decrease air entry at bases, No wheezes, and no crackles. HEART: s1s2 normal, irregularly irregular ABDOMEN: Soft, nontender, not distended, normoactive bowel sounds, no guarding, no rebound, no masses. . LOWER EXTREMITIES: , warm, well-perfused. No calf tenderness. PSYCHIATRIC: Cooperative. SKIN: Warm, dry, Laboratory Results - last 24 hr 03/26/18 03/29/18 03/29/18 11:20 16:00 18:30 WBC RBC Hgb Hct MCV MCH MCHC RDW Plt Count MPV Absolute Neuts (auto) Neutrophils % Lymphocytes % Monocytes % Eosinophils % Basophils % Nucleated RBC % PT with INR INR PTT (Actin FS) 53.5 H 50.2 H Sodium Potassium Chloride Carbon Dioxide Anion Gap BUN Creatinine Creat Clearance w eGFR Random Glucose Calcium Phosphorus Magnesium Total Bilirubin AST ALT Alkaline Phosphatase B-Natriuretic Peptide Total Protein Albumin Blood Type A POSITIVE Antibody Screen Negative Crossmatch See Detail 03/30/18 03/30/18 03/30/18 05:30 05:30 05:30 WBC 10.1 H RBC 3.46 L Hgb 10.9 L Hct 31.6 L MCV 91.4 MCH 31.5 MCHC 34.5 RDW 14.3 Plt Count 198 D MPV 9.2 Absolute Neuts (auto) 7.7 Neutrophils % 75.9 Lymphocytes % 10.4 Monocytes % 12.5 H Eosinophils % 0.8 Basophils % 0.4 Nucleated RBC % 0 PT with INR INR PTT (Actin FS) 47.1 H Sodium 138 Potassium 3.8 Chloride 103 Carbon Dioxide 26 Anion Gap 9 BUN 11 Creatinine 1.0 Creat Clearance w eGFR > 60 Random Glucose 116 H Calcium 8.0 L Phosphorus 3.7 Magnesium 2.2 Total Bilirubin 1.1 H AST 15 ALT 19 Alkaline Phosphatase 85 D B-Natriuretic Peptide Total Protein 6.3 L Albumin 2.6 L Blood Type Antibody Screen Crossmatch 03/30/18 03/30/18 03/30/18 05:30 10:10 13:15 WBC RBC Hgb Hct MCV MCH MCHC RDW Plt Count MPV Absolute Neuts (auto) Neutrophils % Lymphocytes % Monocytes % Eosinophils % Basophils % Nucleated RBC % PT with INR INR PTT (Actin FS) 53.7 H 49.7 H Sodium Potassium Chloride Carbon Dioxide Anion Gap BUN Creatinine Creat Clearance w eGFR Random Glucose Calcium Phosphorus Magnesium Total Bilirubin AST ALT Alkaline Phosphatase B-Natriuretic Peptide 1573.20 H Total Protein Albumin Blood Type Antibody Screen Crossmatch 03/30/18 13:15 WBC RBC Hgb Hct MCV MCH MCHC RDW Plt Count MPV Absolute Neuts (auto) Neutrophils % Lymphocytes % Monocytes % Eosinophils % Basophils % Nucleated RBC % PT with INR 17.30 H INR 1.53 H PTT (Actin FS) Sodium Potassium Chloride Carbon Dioxide Anion Gap BUN Creatinine Creat Clearance w eGFR Random Glucose Calcium Phosphorus Magnesium Total Bilirubin AST ALT Alkaline Phosphatase B-Natriuretic Peptide Total Protein Albumin Blood Type Antibody Screen Crossmatch Active Medications Generic Name Dose Route Start Last Admin Trade Name Freq PRN Reason Stop Dose Admin Acetaminophen 650 mg 03/27/18 15:27 Tylenol - PO Q6H PRN FEVER/PAIN SCALE 1-5 Aspirin 81 mg 03/28/18 10:00 03/30/18 09:59 Asa - PO 81 mg DAILY [facility] Administration Atorvastatin Calcium 20 mg 03/27/18 22:00 03/29/18 21:08 Lipitor - PO 20 mg HS [facility] Administration Enoxaparin Sodium 100 mg/ 130 mg 03/30/18 14:00 03/30/18 15:00 Enoxaparin Sodium 30 mg SQ 130 mg BID [facility] Administration Levothyroxine Sodium 50 mcg 03/28/18 07:00 03/30/18 06:16 Synthroid - PO 50 mcg DAILY@0700 [facility] Administration Metoprolol Succinate 75 mg 03/27/18 22:00 03/30/18 09:59 Toprol Xl - PO 75 mg BID [facility] Administration Metoprolol Tartrate 5 mg 03/30/18 18:00 Lopressor Injection - IVPUSH 03/30/18 18:01 ONCE ONE Warfarin Sodium 7.5 mg 03/30/18 18:00 03/30/18 17:51 Coumadin - PO 7.5 mg DAILY@1800 [facility] Administration ASSESSMENT/PLAN: PAD- s/p thrombectomy DVT Saddle embolus with pulmonary emboli Atrial Fi Hx of of WPW Plan: Heparin therapy with 5-7 day bridge to coumadin Repeat Pt/INR tomorrow. Thrombophilia assessment in future Visit type - Emergency Visit Emergency Visit: Yes ED Registration Date: 03/26/18 Care time: The patient presented to the Emergency Department on the above date and was hospitalized for further evaluation of their emergent condition. - New Patient This patient is new to me today: No - Critical Care Critical Care patient: Yes Total Critical Care Time (in minutes): 45 Critical Care Statement: The care of this patient involved high complexity decision making to prevent further life threatening deterioration of the patient 's condition and/or to evaluate & treat vital organ system(s) failure or risk of failure.
--- NOTE | 2018-03-30 18:16 | PN ---
Progress Note (short form) - Note Progress Note: Pt noted to be in Atrial fibrillation at 130-150bpm. Pt was given Lopressor 5mg IVP x3 with minimal effect. In addition pt noted to have 8 beat run of asymptomatic monomorphic VTach captured on monitor. Pt currently is asymptomatic and comfortable at bedside. Cardiology was called and it was advised to started Cardizem gtt given blood pressures remain stable. Current VS: 146bpm, 111/84, SpO2 95%
[2018-03-30] MEDS ORDERED: dilTIAZem HCL 25 MG/5 ML - 5 ML VIAL ONE (18:23)
--- NOTE | 2018-03-30 18:31 | PN ---
Teaching Attending Note Name of Resident: Abelardo Sarabia ATTENDING PHYSICIAN STATEMENT I saw and evaluated the patient. I reviewed the resident's note and discussed the case with the resident. I agree with the resident's findings and plan as documented. SUBJECTIVE:Patient seen and examined No definite evidence of Right heart strain documented on ECHO x 2. To defer on catheter directed thrombolysis. Plan- 5-7 day heparin to coumadin bridge. OBJECTIVE: ASSESSMENT AND PLAN:
[2018-03-30] MEDS: DILTIAZEM INJECTION 125 MG in SODIUM CHLORIDE 100 ML IVPB SCH (18:32)
[2018-03-30] MEDS: ACETAMINOPHEN 325 MG TABLET (FP) PO PRN (19:55)
[2018-03-30] MEDS: ATORVASTATIN CA 20 MG TABLET (FP) PO SCH (21:17)
[2018-03-30] MEDS ORDERED: PT OWN MED DRAWER 7, Y5N ONE (23:56)
[2018-03-31] MEDS: LEVOTHYROXINE NA 50 MCG TABLET (FP) PO SCH (05:59)
[2018-03-31 06:08] LABS: BASO % 0.5 % (0-2.0); HEMOGLOBIN 10.8 GM/dL (11.7-16.9); LYMPH % 12.3 % (8-40); MCH 31.7 pg (25.7-33.7); MEAN CELL VOLUME 90.7 fl (80-96); MEAN PLT VOLUME 8.9 fl (7.5-11.1); MONO % 12.7 % (3.8-10.2); NEUT % 73.5 % (42.8-82.8); PLATELET COUNT 196 K/MM3 (134-434); RBC 3.42 M/mm3 (4.00-5.60); RDW 13.9 % (11.9-15.9); WHITE BLOOD COUNT 9.8 K/mm3 (4.0-10.0)
[2018-03-31 06:22] LABS: INR 1.58 (0.83-1.09); PROTHROMBIN TIME (PATIENT) 17.8 SEC (9.7-13.0)
[2018-03-31 06:28] LABS: CHLORIDE 102 mmol/L (98-107); POTASSIUM 3.8 mmol/L (3.5-5.1); SGPT/ALT 49 U/L (12-78); SODIUM 137 mmol/L (136-145)
[2018-03-31 06:34] LABS: ALBUMIN 2.4 g/dl (3.4-5.0); ALK PHOS 115 U/L (45-117); ANION GAP 7 (8-16); BLOOD UREA NITROGEN 14 mg/dL (7-18); CALCIUM 8.1 mg/dL (8.5-10.1); CO2 28 mmol/L (21-32); CREATININE 0.9 mg/dL (0.7-1.3); GLUCOSE,RANDOM 100 mg/dL (74-106); SGOT/AST 44 U/L (15-37); TOT PROT 6.3 g/dl (6.4-8.2)
[2018-03-31 06:51] LABS: CHOLESTEROL 120 mg/dL (50-200); HDL CHOLESTEROL 33 mg/dL (40-60); TRIGLYCERIDES 79 mg/dL (35-160)
--- NOTE | 2018-03-31 09:08 | EKG ---
Test Reason : Blood Pressure : / mmHG Vent. Rate : 122 BPM Atrial Rate : 117 BPM P-R Int : 000 ms QRS Dur : 078 ms QT Int : 312 ms P-R-T Axes : 000 -04 020 degrees QTc Int : 444 ms ATRIAL FIBRILLATION WITH RAPID VENTRICULAR RESPONSE LOW VOLTAGE QRS NONSPECIFIC ST ABNORMALITY ABNORMAL ECG WHEN COMPARED WITH ECG OF 26-MAR-2018 11:18, NO SIGNIFICANT CHANGE WAS FOUND Confirmed by SHAHEEN LOPEZ, YASMANY ([id number]) on 03/31/2018 9:07:41 AM Referred By: ABDON PETERSEN Confirmed By:YASMANY JAMISON MD
[2018-03-31] MEDS ORDERED: PT OWN MED DRAWER 7, Y5N ONE ×2 (09:12→21:04)
[2018-03-31] MEDS: ENOXAPARIN 100 MG, ENOXAPARIN 30 MG SQ SCH ×2 (09:19→21:08)
[2018-03-31] MEDS: ASPIRIN 81 MG CHEWABLE TABLETS PO SCH (09:20)
--- NOTE | 2018-03-31 12:31 | PN ---
Progress Note, Physician History of Present Illness: Events overnight noted Discussed with ICU staff Developed RVR at 6PM, started on Dilt gtt with better rate control Tele now Afib 100s - Current Medication List Current Medications: Active Medications Acetaminophen (Tylenol -) 650 mg PO Q6H PRN PRN Reason: FEVER/PAIN SCALE 1-5 Last Admin: 03/30/18 19:55 Dose: 650 mg Aspirin (Asa -) 81 mg PO DAILY [facility] Last Admin: 03/31/18 09:20 Dose: 81 mg Atorvastatin Calcium (Lipitor -) 20 mg PO HS [facility] Last Admin: 03/30/18 21:17 Dose: 20 mg Enoxaparin Sodium 100 mg/ (Enoxaparin Sodium 30 mg) 130 mg SQ BID [facility] Last Admin: 03/31/18 09:19 Dose: 130 mg Diltiazem HCl 125 mg/ Sodium (Chloride) 125 mls @ 5 mls/hr IVPB TITR [facility]; Protocol Last Admin: 03/30/18 18:32 Dose: 5 mg/hr, 5 mls/hr Levothyroxine Sodium (Synthroid -) 50 mcg PO DAILY@0700 [facility] Last Admin: 03/31/18 05:59 Dose: 50 mcg Metoprolol Succinate (Toprol Xl -) 75 mg PO BID [facility] Last Admin: 03/30/18 21:17 Dose: 75 mg Warfarin Sodium (Coumadin -) 7.5 mg PO DAILY@1800 [facility] Last Admin: 03/30/18 17:51 Dose: 7.5 mg - Objective Vital Signs: Vital Signs Temperature 98.4 F 03/31/18 08:04 Pulse Rate 104 H 03/31/18 12:00 Respiratory Rate 24 03/31/18 12:00 Blood Pressure 90/73 03/31/18 12:00 O2 Sat by Pulse Oximetry (%) 97 03/31/18 08:04 Constitutional: Yes: No Distress, Calm Eyes: Yes: WNL HENT: Yes: WNL Neck: Yes: WNL Cardiovascular: Yes: Tachycardia, Pulse Irregular Respiratory: Yes: CTA Bilaterally Gastrointestinal: Yes: Normal Bowel Sounds Musculoskeletal: Yes: WNL Extremities: Yes: WNL Edema: No Labs: CBC, BMP 03/31/18 05:30 03/31/18 05:30 INR, PTT INR 1.58 (0.83-1.09) H 03/31/18 05:30 Assessment/Plan persistent AF: - had not been on AC at home, poor follow up, now on heparin gtt - s/p open thrombectomy of R iliac, SFA, deep profunda, and angiogram and is on heparin gtt, likely related to atheroembolic event from afib - currently on metoprolol 75 mg BID, cont same. -RVR last night now on Dilt gtt with improved rate control. Would transition to PO and wean gtt. Have room to titrate up metoprolol as well DVT/PE: -saddle PE seen on cta, pt has no sxs or signs of RHF. Due to pt body habitus two echos were tds for rv strain. I reviewed echo images myself and cannot definitively see evidence of RV failure. Clinically he has no signs RHF. D/w crit care team and given that he has no definite signs of right heart failure, agree that IR thrombolysis will likely be of no benefit at this time since he is otherwise stable. -also with distal SFV and popliteal vein thrombus on duplex, recent shoulder surgery -heme following hypothyroidism: - on synthroid, manage per primary team
--- NOTE | 2018-03-31 13:30 | PN ---
Teaching Attending Note Name of Resident: Arun Byrnes ATTENDING PHYSICIAN STATEMENT I saw and evaluated the patient. I reviewed the resident's note and discussed the case with the resident. I agree with the resident's findings and plan as documented. SUBJECTIVE: Pt seen and examined in the ICU. Episodes of rapid afib overnight with minimal exertion, started on cardizem gtt. Denies shortness of breath, chest pain or palpitations. OBJECTIVE: Vital Signs Period Temp Pulse Resp BP Sys/Cooper Pulse Ox Last 24 Hr 97.2 F-99.3 F 89-152 11-24 90-118/62-90 97-97 Intake & Output 03/28/18 03/29/18 03/30/18 03/31/18 23:59 23:59 23:59 23:59 Intake Total 9857 707 8879 55.5 Output Total 1320 2500 1100 Balance 112 -1558 208 55.5 Weight 136.758 kg 136.531 kg 136.531 kg 135.2 kg Gen: mildly tachypneic at rest Heart: tachycardic, irregular Lung: decreased breath sounds at the bases Abd: soft, nontender Ext: no edema CBC, BMP 03/31/18 05:30 03/31/18 05:30 INR, PTT INR 1.58 (0.83-1.09) H 03/31/18 05:30 Active Medications Acetaminophen (Tylenol -) 650 mg PO Q6H PRN PRN Reason: FEVER/PAIN SCALE 1-5 Last Admin: 03/30/18 19:55 Dose: 650 mg Aspirin (Asa -) 81 mg PO DAILY [facility] Last Admin: 03/31/18 09:20 Dose: 81 mg Atorvastatin Calcium (Lipitor -) 20 mg PO HS [facility] Last Admin: 03/30/18 21:17 Dose: 20 mg Enoxaparin Sodium 100 mg/ (Enoxaparin Sodium 30 mg) 130 mg SQ BID [facility] Last Admin: 03/31/18 09:19 Dose: 130 mg Diltiazem HCl 125 mg/ Sodium (Chloride) 125 mls @ 5 mls/hr IVPB TITR [facility]; Protocol Last Admin: 03/30/18 18:32 Dose: 5 mg/hr, 5 mls/hr Levothyroxine Sodium (Synthroid -) 50 mcg PO DAILY@0700 [facility] Last Admin: 03/31/18 05:59 Dose: 50 mcg Metoprolol Succinate (Toprol Xl -) 75 mg PO BID [facility] Last Admin: 03/30/18 21:17 Dose: 75 mg Warfarin Sodium (Coumadin -) 7.5 mg PO DAILY@1800 [facility] Last Admin: 03/30/18 17:51 Dose: 7.5 mg ASSESSMENT AND PLAN: PAD/R iliac/SFA/deep profunda thrombus s/o open thrombectomy Acute Pulmonary Emboli RLE DVT Atrial Fibrillation with RVR Hypothyroidism - continue anticoagulation, target INR 2-3 - rate control, titrate up beta erlinda - taper off cardizem gtt - O2 to keep SpO2 >90% - can monitor on telemetry critical care time spent in reviewing chart, evaluating patient and formulating plan 35 min
--- NOTE | 2018-03-31 14:41 | PN ---
Physical Exam: SUBJECTIVE: Patient seen and examined at bedside. Has stiffness at knees and ankles from laying on bed but otherwise no complaints. Had Afib with RVR overnight and pt was asymptomatic. OBJECTIVE: Vital Signs Period Temp Pulse Resp BP Sys/Cooper Pulse Ox Last 24 Hr 97.2 F-99.3 F 89-152 11-24 90-118/62-90 97-97 GENERAL: The patient is awake, alert, and fully oriented, in no acute distress. EYES: extraocular movements intact NECK: Trachea midline LUNGS: Decreased breath sounds. HEART: Irregularly irregular, tachycardic, no murmurs ABDOMEN: Soft, nontender, nondistended, normoactive bowel sounds EXTREMITIES: 2+ pulses, warm, well-perfused NEUROLOGICAL: Cranial nerves II through XII grossly intact. Normal speech, gait not observed. PSYCH: Normal mood, normal affect. SKIN: Warm, dry Laboratory Results - last 24 hr 03/30/18 03/31/18 03/31/18 13:15 05:30 05:30 WBC RBC Hgb Hct MCV MCH MCHC RDW Plt Count MPV Absolute Neuts (auto) Neutrophils % Lymphocytes % Monocytes % Eosinophils % Basophils % Nucleated RBC % PT with INR 17.30 H 17.80 H INR 1.53 H 1.58 H Sodium 137 Potassium 3.8 Chloride 102 Carbon Dioxide 28 Anion Gap 7 L BUN 14 Creatinine 0.9 Creat Clearance w eGFR > 60 Random Glucose 100 Hemoglobin A1c % Calcium 8.1 L Ferritin Total Bilirubin 1.0 AST 44 H D ALT 49 D Alkaline Phosphatase 115 D Total Protein 6.3 L Albumin 2.4 L Triglycerides Cholesterol Total LDL Cholesterol HDL Cholesterol Vitamin B12 03/31/18 03/31/18 03/31/18 05:30 05:30 05:30 WBC 9.8 RBC 3.42 L Hgb 10.8 L Hct 31.0 L MCV 90.7 MCH 31.7 MCHC 35.0 RDW 13.9 Plt Count 196 MPV 8.9 Absolute Neuts (auto) 7.2 Neutrophils % 73.5 Lymphocytes % 12.3 Monocytes % 12.7 H Eosinophils % 1.0 Basophils % 0.5 Nucleated RBC % 0 PT with INR INR Sodium Potassium Chloride Carbon Dioxide Anion Gap BUN Creatinine Creat Clearance w eGFR Random Glucose Hemoglobin A1c % 5.1 Calcium Ferritin 354.3 H Total Bilirubin AST ALT Alkaline Phosphatase Total Protein Albumin Triglycerides Cholesterol Total LDL Cholesterol HDL Cholesterol Vitamin B12 03/31/18 03/31/18 05:30 05:30 WBC RBC Hgb Hct MCV MCH MCHC RDW Plt Count MPV Absolute Neuts (auto) Neutrophils % Lymphocytes % Monocytes % Eosinophils % Basophils % Nucleated RBC % PT with INR INR Sodium Potassium Chloride Carbon Dioxide Anion Gap BUN Creatinine Creat Clearance w eGFR Random Glucose Hemoglobin A1c % Calcium Ferritin Total Bilirubin AST ALT Alkaline Phosphatase Total Protein Albumin Triglycerides 79 Cholesterol 120 Total LDL Cholesterol 77 HDL Cholesterol 33 L Vitamin B12 299 Active Medications Generic Name Dose Route Start Last Admin Trade Name Freq PRN Reason Stop Dose Admin Acetaminophen 650 mg 03/27/18 15:27 03/30/18 19:55 Tylenol - PO 650 mg Q6H PRN Administration FEVER/PAIN SCALE 1-5 Aspirin 81 mg 03/28/18 10:00 03/31/18 09:20 Asa - PO 81 mg DAILY [facility] Administration Atorvastatin Calcium 20 mg 03/27/18 22:00 03/30/18 21:17 Lipitor - PO 20 mg HS [facility] Administration Enoxaparin Sodium 100 mg/ 130 mg 03/30/18 14:00 03/31/18 09:19 Enoxaparin Sodium 30 mg SQ 130 mg BID [facility] Administration Diltiazem HCl 125 mg/ Sodium 125 mls @ 5 mls/hr 03/30/18 18:15 03/30/18 18:32 Chloride IVPB 5 mg/hr TITR [facility] 5 mls/hr Administration Protocol 5 MG/HR Levothyroxine Sodium 50 mcg 03/28/18 07:00 03/31/18 05:59 Synthroid - PO 50 mcg DAILY@0700 [facility] Administration Metoprolol Succinate 75 mg 03/27/18 22:00 03/30/18 21:17 Toprol Xl - PO 75 mg BID [facility] Administration Warfarin Sodium 7.5 mg 03/30/18 18:00 03/30/18 17:51 Coumadin - PO 7.5 mg DAILY@1800 [facility] Administration ASSESSMENT/PLAN: 62 y/o M w/PMH of AFib (not on AC), HTN found to have DVT and subsequently found to have PE w/saddle embolus. -Pulmonary embolus/saddle embolus secondary to DVT -on lovenox to bridge to warfarin -c/w warfarin 7.5 mg po qd -monitor INR, goal range 2-3 -will continue to medically manage at this time -pt had embolectomy of RLE on 03/26/18 -O2 supp to keep O2 sat >90% -Heme on board -Afib w/RVR -on lovenox and being transitioned to warfarin for AC -on diltiazem drip. Will titrate off and will resume metoprolol succ 75 mg po bid -can titrate up metoprolol as needed for better rate control -cardiology on board -HLD -c/w lipitor -Normocytic Anemia -Heme on board -f/u iron studies -Hypothyroidism -c/w synthroid -DVT ppx -on lovenox, transitioning to warfarin -FEN -No IVF -monitor electrolytes -Sodium controlled diet -Dispo: Can transfer to tele once off dilt drip Visit type - Emergency Visit Emergency Visit: Yes ED Registration Date: 03/26/18 Care time: The patient presented to the Emergency Department on the above date and was hospitalized for further evaluation of their emergent condition. - New Patient This patient is new to me today: No - Critical Care Critical Care patient: Yes Total Critical Care Time (in minutes): 40 Critical Care Statement: The care of this patient involved high complexity decision making to prevent further life threatening deterioration of the patient 's condition and/or to evaluate & treat vital organ system(s) failure or risk of failure.
--- NOTE | 2018-03-31 16:03 | PN ---
Progress Note, Physician Chief Complaint: EVENTS AND NOTES REVIEWED DENIES CHEST PAIN OR SOB +TACHYCARDIA - Current Medication List Current Medications: Active Medications Acetaminophen (Tylenol -) 650 mg PO Q6H PRN PRN Reason: FEVER/PAIN SCALE 1-5 Last Admin: 03/30/18 19:55 Dose: 650 mg Aspirin (Asa -) 81 mg PO DAILY [facility] Last Admin: 03/31/18 09:20 Dose: 81 mg Atorvastatin Calcium (Lipitor -) 20 mg PO HS [facility] Last Admin: 03/30/18 21:17 Dose: 20 mg Enoxaparin Sodium 100 mg/ (Enoxaparin Sodium 30 mg) 130 mg SQ BID [facility] Last Admin: 03/31/18 09:19 Dose: 130 mg Diltiazem HCl 125 mg/ Sodium (Chloride) 125 mls @ 5 mls/hr IVPB TITR [facility]; Protocol Last Admin: 03/30/18 18:32 Dose: 5 mg/hr, 5 mls/hr Levothyroxine Sodium (Synthroid -) 50 mcg PO DAILY@0700 [facility] Last Admin: 03/31/18 05:59 Dose: 50 mcg Metoprolol Succinate (Toprol Xl -) 75 mg PO BID [facility] Last Admin: 03/30/18 21:17 Dose: 75 mg Warfarin Sodium (Coumadin -) 7.5 mg PO DAILY@1800 [facility] Last Admin: 03/30/18 17:51 Dose: 7.5 mg - Objective Vital Signs: Vital Signs Temperature 98.5 F 03/31/18 14:31 Pulse Rate 116 H 03/31/18 14:31 Respiratory Rate 22 03/31/18 14:31 Blood Pressure 86/56 03/31/18 14:31 O2 Sat by Pulse Oximetry (%) 97 03/31/18 08:04 Constitutional: Yes: Mild Distress Eyes: Yes: WNL HENT: Yes: WNL Neck: Yes: WNL Cardiovascular: Yes: Tachycardia Respiratory: Yes: WNL Gastrointestinal: Yes: WNL Genitourinary: Yes: WNL Musculoskeletal: Yes: WNL Edema: No Peripheral Pulses WNL: Yes Integumentary: Yes: WNL Wound/Incision: Yes: Clean/Dry Neurological: Yes: WNL ...Motor Strength: WNL Psychiatric: Yes: WNL Labs: CBC, BMP 03/31/18 05:30 03/31/18 05:30 INR, PTT INR 1.58 (0.83-1.09) H 03/31/18 05:30 Problem List - Problems (1) Anemia Code(s): D64.9 - ANEMIA, UNSPECIFIED (2) Atrial fibrillation Code(s): I48.91 - UNSPECIFIED ATRIAL FIBRILLATION Qualifiers: Atrial fibrillation type: unspecified Qualified Code(s): I48.91 - Unspecified atrial fibrillation (3) DVT (deep venous thrombosis) Code(s): I82.409 - ACUTE EMBOLISM AND THOMBOS UNSP DEEP VN UNSP LOWER EXTREMITY Qualifiers: DVT location: lower extremity Affected thrombotic vein of extremity: unspecified vein of extremity Chronicity: acute Laterality: right Qualified Code(s): I82.401 - Acute embolism and thrombosis of unspecified deep veins of right lower extremity (4) Pulmonary embolism Code(s): I26.99 - OTHER PULMONARY EMBOLISM WITHOUT ACUTE COR PULMONALE Assessment/Plan RATE CONTROL ON CARDIZEM DRIP TITRATE NEEDED 02 SUPPORT CARDIO EVAL AC FOR DVT/PE ON LOVENOX CHANGE TO ELIQUIS FOR OUTPATIENT
[2018-03-31] MEDS: WARFARIN NA 7.5 MG TABLET (FP) PO SCH (17:14)
[2018-03-31] MEDS: DILTIAZEM INJECTION 125 MG in SODIUM CHLORIDE 100 ML IVPB SCH (21:07)
[2018-03-31] MEDS: ATORVASTATIN CA 20 MG TABLET (FP) PO SCH (21:07)
[2018-03-31] MEDS: metoPROLOL SUCCINATE 25 MG TAB.SR.24H (FP) PO SCH (21:07)
[2018-04-01] MEDS: ACETAMINOPHEN 325 MG TABLET (FP) PO PRN (01:19)
[2018-04-01 06:05] LABS: BASO % 0.7 % (0-2.0); EOS % 1.1 % (0-4.5); HEMATOCRIT 30.5 % (35.4-49); HEMOGLOBIN 10.5 GM/dL (11.7-16.9); LYMPH % 14.3 % (8-40); MCH 31.2 pg (25.7-33.7); MCHC 34.4 g/dl (32.0-35.9); MEAN CELL VOLUME 90.6 fl (80-96); MEAN PLT VOLUME 8.9 fl (7.5-11.1); MONO % 9.9 % (3.8-10.2); PLATELET COUNT 227 K/MM3 (134-434); RBC 3.37 M/mm3 (4.00-5.60); WHITE BLOOD COUNT 8.5 K/mm3 (4.0-10.0)
[2018-04-01] MEDS: LEVOTHYROXINE NA 50 MCG TABLET (FP) PO SCH (06:07)
[2018-04-01 06:31] LABS: ALBUMIN 2.4 g/dl (3.4-5.0); ANION GAP 6 (8-16); BILIRUBIN,TOTAL 0.6 mg/dL (0.2-1.0); BLOOD UREA NITROGEN 16 mg/dL (7-18); CALCIUM 8.2 mg/dL (8.5-10.1); CHLORIDE 103 mmol/L (98-107); CO2 28 mmol/L (21-32); GLUCOSE,RANDOM 99 mg/dL (74-106); MAGNESIUM 2.2 mg/dL (1.8-2.4); PHOSPHOROUS 3.7 mg/dL (2.5-4.9); POTASSIUM 3.9 mmol/L (3.5-5.1); SGOT/AST 44 U/L (15-37); SGPT/ALT 54 U/L (12-78); SODIUM 137 mmol/L (136-145)
[2018-04-01 06:32] LABS: INR 1.99 (0.83-1.09); PROTHROMBIN TIME (PATIENT) 22.5 SEC (9.7-13.0)
[2018-04-01 06:33] LABS: ALK PHOS 123 U/L (45-117); TOT PROT 6.3 g/dl (6.4-8.2)
[2018-04-01 06:36] LABS: SERUM IRON SATURATION 8 % (15-55); TOTAL IRON BINDING CAPACITY 210 ug/dL (250-450); UIBC 194 ug/dL (111-343)
[2018-04-01] MEDS: metoPROLOL SUCCINATE 25 MG TAB.SR.24H (FP) PO SCH (09:07)
[2018-04-01] MEDS: ASPIRIN 81 MG CHEWABLE TABLETS PO SCH (09:07)
[2018-04-01] MEDS ORDERED: PT OWN MED DRAWER 7, Y5N ONE (09:11)
[2018-04-01] MEDS: ENOXAPARIN 100 MG, ENOXAPARIN 30 MG SQ SCH ×2 (09:12→22:00)
--- NOTE | 2018-04-01 11:05 | PN ---
Physical Exam: SUBJECTIVE: Patient seen and examined at bedside. no acute events overnight. patients HR has remained under control; he denies any CP/SOB or palpitations. patient is off the cardizem drip and is now back on the metoprolol BID. patient is not longer having pain at embolectomy site. OBJECTIVE: Vital Signs Period Temp Pulse Resp BP Sys/Cooper Pulse Ox Last 24 Hr 97.8 F-98.5 F 93-116 12-24 83-106/56-81 100-100 GENERAL: The patient is awake, alert, and fully oriented, in no acute distress.. LUNGS: Breath sounds equal, clear to auscultation bilaterally, no wheezes, no crackles, no accessory muscle use. HEART: Regular rate and rhythm, S1, S2 without murmur, rub or gallop. ABDOMEN: Soft, nontender, nondistended, normoactive bowel sounds, no guarding, no rebound, no hepatosplenomegaly, no masses. EXTREMITIES: 2+ pulses, warm, well-perfused, no edema. PSYCH: Normal mood, normal affect. SKIN: Warm, dry, normal turgor, no rashes or lesions noted Laboratory Results - last 24 hr 03/31/18 04/01/18 04/01/18 05:30 05:30 05:30 WBC 8.5 RBC 3.37 L Hgb 10.5 L Hct 30.5 L MCV 90.6 MCH 31.2 MCHC 34.4 RDW 14.0 Plt Count 227 MPV 8.9 Absolute Neuts (auto) 6.3 Neutrophils % 74.0 Lymphocytes % 14.3 Monocytes % 9.9 Eosinophils % 1.1 Basophils % 0.7 Nucleated RBC % 0 PT with INR 22.50 H INR 1.99 H Sodium Potassium Chloride Carbon Dioxide Anion Gap BUN Creatinine Creat Clearance w eGFR Random Glucose Calcium Phosphorus Magnesium Iron 16 L TIBC 210 L Iron Saturation 8 L Total Bilirubin AST ALT Alkaline Phosphatase Total Protein Albumin 04/01/18 05:30 WBC RBC Hgb Hct MCV MCH MCHC RDW Plt Count MPV Absolute Neuts (auto) Neutrophils % Lymphocytes % Monocytes % Eosinophils % Basophils % Nucleated RBC % PT with INR INR Sodium 137 Potassium 3.9 Chloride 103 Carbon Dioxide 28 Anion Gap 6 L BUN 16 Creatinine 1.0 Creat Clearance w eGFR > 60 Random Glucose 99 Calcium 8.2 L Phosphorus 3.7 Magnesium 2.2 Iron TIBC Iron Saturation Total Bilirubin 0.6 AST 44 H ALT 54 Alkaline Phosphatase 123 H Total Protein 6.3 L Albumin 2.4 L Active Medications Generic Name Dose Route Start Last Admin Trade Name German PRN Reason Stop Dose Admin Acetaminophen 650 mg 03/27/18 15:27 04/01/18 01:19 Tylenol - PO 650 mg Q6H PRN Administration FEVER/PAIN SCALE 1-5 Aspirin 81 mg 03/28/18 10:00 04/01/18 09:07 Asa - PO 81 mg DAILY [facility] Administration Atorvastatin Calcium 20 mg 03/27/18 22:00 03/31/18 21:07 Lipitor - PO 20 mg HS [facility]E Administration Enoxaparin Sodium 100 mg/ 130 mg 03/30/18 14:00 04/01/18 09:12 Enoxaparin Sodium 30 mg SQ 130 mg BID [facility] Administration Levothyroxine Sodium 50 mcg 03/28/18 07:00 04/01/18 06:07 Synthroid - PO 50 mcg DAILY@0700 [facility] Administration Metoprolol Succinate 75 mg 03/27/18 22:00 04/01/18 09:07 Toprol Xl - PO 75 mg BID [facility] Administration Warfarin Sodium 7.5 mg 03/30/18 18:00 03/31/18 17:14 Coumadin - PO 7.5 mg DAILY@1800 [facility] Administration ASSESSMENT/PLAN: 62 y/o male s/p embolectomy found to have saddle PE and bilateral emboli. Cardio: -patient's HR has been under control -no longer on cardizem drip -continue with toprol XL -continue with lipitor for HLD -ASA Respiratory: Pulmonary Embolus -no intervention necessary at this time -anticoagulation: bridging with lovenox to coumadin F/E/N; -not on fluids -replete electrolytes as necessary -low sodium diet dispo: transfer to telemetry Problem List - Problems (1) Arterial occlusion Code(s): I70.90 - UNSPECIFIED ATHEROSCLEROSIS (2) Atrial fibrillation Code(s): I48.91 - UNSPECIFIED ATRIAL FIBRILLATION Qualifiers: Atrial fibrillation type: unspecified Qualified Code(s): I48.91 - Unspecified atrial fibrillation (3) DVT (deep venous thrombosis) Code(s): I82.409 - ACUTE EMBOLISM AND THOMBOS UNSP DEEP VN UNSP LOWER EXTREMITY Qualifiers: DVT location: lower extremity Affected thrombotic vein of extremity: unspecified vein of extremity Chronicity: acute Laterality: right Qualified Code(s): I82.401 - Acute embolism and thrombosis of unspecified deep veins of right lower extremity (4) Pulmonary embolism Code(s): I26.99 - OTHER PULMONARY EMBOLISM WITHOUT ACUTE COR PULMONALE Visit type - Emergency Visit Emergency Visit: Yes ED Registration Date: 03/26/18 Care time: The patient presented to the Emergency Department on the above date and was hospitalized for further evaluation of their emergent condition. - New Patient This patient is new to me today: No - Critical Care Critical Care patient: Yes Total Critical Care Time (in minutes): 35 Critical Care Statement: The care of this patient involved high complexity decision making to prevent further life threatening deterioration of the patient 's condition and/or to evaluate & treat vital organ system(s) failure or risk of failure.
--- NOTE | 2018-04-01 11:15 | PN ---
Progress Note, Physician History of Present Illness: Weaned off Dilt gtt, but not put on PO No CV complaints Tele: Afib to 100s - Current Medication List Current Medications: Active Medications Acetaminophen (Tylenol -) 650 mg PO Q6H PRN PRN Reason: FEVER/PAIN SCALE 1-5 Last Admin: 04/01/18 01:19 Dose: 650 mg Aspirin (Asa -) 81 mg PO DAILY [facility] Last Admin: 04/01/18 09:07 Dose: 81 mg Atorvastatin Calcium (Lipitor -) 20 mg PO HS [facility] Last Admin: 03/31/18 21:07 Dose: 20 mg Enoxaparin Sodium 100 mg/ (Enoxaparin Sodium 30 mg) 130 mg SQ BID [facility] Last Admin: 04/01/18 09:12 Dose: 130 mg Levothyroxine Sodium (Synthroid -) 50 mcg PO DAILY@0700 [facility] Last Admin: 04/01/18 06:07 Dose: 50 mcg Metoprolol Succinate (Toprol Xl -) 75 mg PO BID [facility] Last Admin: 04/01/18 09:07 Dose: 75 mg Warfarin Sodium (Coumadin -) 7.5 mg PO DAILY@1800 [facility] Last Admin: 03/31/18 17:14 Dose: 7.5 mg - Objective Vital Signs: Vital Signs Temperature 97.8 F 04/01/18 06:00 Pulse Rate 105 H 04/01/18 08:00 Respiratory Rate 19 04/01/18 08:56 Blood Pressure 106/76 04/01/18 08:00 O2 Sat by Pulse Oximetry (%) 100 04/01/18 08:56 Constitutional: Yes: No Distress, Calm Eyes: Yes: WNL HENT: Yes: WNL Neck: Yes: WNL Cardiovascular: Yes: Regular Rate and Rhythm Respiratory: Yes: CTA Bilaterally Gastrointestinal: Yes: Normal Bowel Sounds Extremities: Yes: WNL Edema: No Labs: CBC, BMP 04/01/18 05:30 04/01/18 05:30 INR, PTT INR 1.99 (0.83-1.09) H 04/01/18 05:30 Assessment/Plan persistent AF: - had not been on AC at home, poor follow up, now on heparin gtt - s/p open thrombectomy of R iliac, SFA, deep profunda, and angiogram and is on heparin gtt, likely related to atheroembolic event from afib - currently on metoprolol 75 mg BID, cont same. -RVR last night now on Dilt gtt with improved rate control. -Not put on PO Dilt -Would increase Metoprolol to 100mg PO BID DVT/PE: -saddle PE seen on cta, pt has no sxs or signs of RHF. Due to pt body habitus two echos were tds for rv strain. I reviewed echo images myself and cannot definitively see evidence of RV failure. Clinically he has no signs RHF. D/w crit care team and given that he has no definite signs of right heart failure, agree that IR thrombolysis will likely be of no benefit at this time since he is otherwise stable. -also with distal SFV and popliteal vein thrombus on duplex, recent shoulder surgery -heme following hypothyroidism: - on synthroid, manage per primary team
--- NOTE | 2018-04-01 12:14 | PN ---
Teaching Attending Note Name of Resident: Viri Lucero ATTENDING PHYSICIAN STATEMENT I saw and evaluated the patient. I reviewed the resident's note and discussed the case with the resident. I agree with the resident's findings and plan as documented. SUBJECTIVE: Pt seen and examined in the ICU. Denies shortness of breath, chest pain or palpitations. Heart rates better controlled, off cardizem gtt. OBJECTIVE: Vital Signs Period Temp Pulse Resp BP Sys/Cooper Pulse Ox Last 24 Hr 97.8 F-99.2 F 93-116 12-22 83-106/56-81 100-100 Intake & Output 03/29/18 03/30/18 03/31/18 04/01/18 23:59 23:59 23:59 23:59 Intake Total 942 1308 700.5 Output Total 2500 1100 1500 400 Balance -1558 208 -799.5 -400 Weight 136.531 kg 136.531 kg 135.2 kg 72.711 kg Gen: less tachypneic Heart: tachycardic, irregular Lung: decreased breath sounds at the bases Abd: soft, nontender Ext: no edema CBC, BMP 04/01/18 05:30 04/01/18 05:30 Active Medications Acetaminophen (Tylenol -) 650 mg PO Q6H PRN PRN Reason: FEVER/PAIN SCALE 1-5 Last Admin: 04/01/18 01:19 Dose: 650 mg Aspirin (Asa -) 81 mg PO DAILY [facility] Last Admin: 04/01/18 09:07 Dose: 81 mg Atorvastatin Calcium (Lipitor -) 20 mg PO HS [facility] Last Admin: 03/31/18 21:07 Dose: 20 mg Enoxaparin Sodium 100 mg/ (Enoxaparin Sodium 30 mg) 130 mg SQ BID [facility] Last Admin: 04/01/18 09:12 Dose: 130 mg Levothyroxine Sodium (Synthroid -) 50 mcg PO DAILY@0700 [facility] Last Admin: 04/01/18 06:07 Dose: 50 mcg Metoprolol Tartrate (Lopressor -) 100 mg PO BID [facility] Warfarin Sodium (Coumadin -) 7.5 mg PO DAILY@1800 [facility] Last Admin: 03/31/18 17:14 Dose: 7.5 mg ASSESSMENT AND PLAN: PAD/R iliac/SFA/deep profunda thrombus s/o open thrombectomy Acute Pulmonary Emboli RLE DVT Atrial Fibrillation with RVR Hypothyroidism - continue anticoagulation, target INR 2-3 - rate control, titrate up beta erlinda - O2 to keep SpO2 >90% - can monitor on telemetry
--- NOTE | 2018-04-01 12:50 | PN ---
Progress Note, Physician Chief Complaint: AWAKE ALERT FEELS GOOD DENIES CHEST PAIN/DYSPNEA - Current Medication List Current Medications: Active Medications Acetaminophen (Tylenol -) 650 mg PO Q6H PRN PRN Reason: FEVER/PAIN SCALE 1-5 Last Admin: 04/01/18 01:19 Dose: 650 mg Aspirin (Asa -) 81 mg PO DAILY [facility] Last Admin: 04/01/18 09:07 Dose: 81 mg Atorvastatin Calcium (Lipitor -) 20 mg PO HS [facility] Last Admin: 03/31/18 21:07 Dose: 20 mg Enoxaparin Sodium 100 mg/ (Enoxaparin Sodium 30 mg) 130 mg SQ BID [facility] Last Admin: 04/01/18 09:12 Dose: 130 mg Levothyroxine Sodium (Synthroid -) 50 mcg PO DAILY@0700 [facility] Last Admin: 04/01/18 06:07 Dose: 50 mcg Metoprolol Tartrate (Lopressor -) 100 mg PO BID [facility] Warfarin Sodium (Coumadin -) 7.5 mg PO DAILY@1800 [facility] Last Admin: 03/31/18 17:14 Dose: 7.5 mg - Objective Vital Signs: Vital Signs Temperature 99.2 F 04/01/18 10:00 Pulse Rate 102 H 04/01/18 10:00 Respiratory Rate 20 04/01/18 10:00 Blood Pressure 103/76 04/01/18 10:00 O2 Sat by Pulse Oximetry (%) 100 04/01/18 08:56 Constitutional: Yes: No Distress Eyes: Yes: WNL HENT: Yes: WNL Neck: Yes: WNL Cardiovascular: Yes: Tachycardia, Pulse Irregular Respiratory: Yes: WNL Gastrointestinal: Yes: WNL Genitourinary: Yes: WNL Musculoskeletal: Yes: Muscle Weakness Extremities: Yes: WNL Edema: No Peripheral Pulses WNL: Yes Wound/Incision: Yes: Clean/Dry Neurological: Yes: Other ...Motor Strength: LLE, RLE Psychiatric: Yes: WNL Labs: CBC, BMP 04/01/18 05:30 04/01/18 05:30 INR, PTT INR 1.99 (0.83-1.09) H 04/01/18 05:30 Problem List - Problems (1) Anemia Code(s): D64.9 - ANEMIA, UNSPECIFIED (2) Atrial fibrillation Code(s): I48.91 - UNSPECIFIED ATRIAL FIBRILLATION Qualifiers: Atrial fibrillation type: unspecified Qualified Code(s): I48.91 - Unspecified atrial fibrillation (3) DVT (deep venous thrombosis) Code(s): I82.409 - ACUTE EMBOLISM AND THOMBOS UNSP DEEP VN UNSP LOWER EXTREMITY Qualifiers: DVT location: lower extremity Affected thrombotic vein of extremity: unspecified vein of extremity Chronicity: acute Laterality: right Qualified Code(s): I82.401 - Acute embolism and thrombosis of unspecified deep veins of right lower extremity (4) Pulmonary embolism Code(s): I26.99 - OTHER PULMONARY EMBOLISM WITHOUT ACUTE COR PULMONALE Assessment/Plan PT EVAL OOB TO CHAIR STILL TACHY/AFIB CARDIO EVAL APPRECIATED DC PLANNING ONCE HEART RATE STABLE LABS REVIEWED INR THERAPEUTIC 1.99
[2018-04-01 14:45] VITALS: BMI 43.9
[2018-04-01] MEDS: WARFARIN NA 7.5 MG TABLET (FP) PO SCH (19:00)
[2018-04-01] MEDS: METOPROLOL TARTRATE 50 MG TABLET (FP) PO SCH (21:28)
[2018-04-01] MEDS: SENNOSIDES 8.6MG TABLET (FP) PO SCH (21:29)
[2018-04-01] MEDS: ATORVASTATIN CA 20 MG TABLET (FP) PO SCH (21:29)
[2018-04-02 06:10] LABS: BASO % 0.8 % (0-2.0); EOS % 1.5 % (0-4.5); HEMATOCRIT 29.5 % (35.4-49); HEMOGLOBIN 10.2 GM/dL (11.7-16.9); LYMPH % 15.7 % (8-40); MCH 31.6 pg (25.7-33.7); MCHC 34.7 g/dl (32.0-35.9); MEAN PLT VOLUME 8.7 fl (7.5-11.1); PLATELET COUNT 236 K/MM3 (134-434); RBC 3.24 M/mm3 (4.00-5.60); RDW 14.2 % (11.9-15.9); WHITE BLOOD COUNT 7.7 K/mm3 (4.0-10.0)
[2018-04-02] MEDS ORDERED: PT OWN MED DRAWER 7, Y5N ONE ×2 (06:10→09:29)
[2018-04-02] MEDS: LEVOTHYROXINE NA 50 MCG TABLET (FP) PO SCH (06:15)
[2018-04-02 06:20] LABS: INR 2.37 (0.83-1.09); PROTHROMBIN TIME (PATIENT) 26.8 SEC (9.7-13.0)
[2018-04-02 06:38] LABS: CHLORIDE 104 mmol/L (98-107); POTASSIUM 4.2 mmol/L (3.5-5.1); SODIUM 138 mmol/L (136-145)
[2018-04-02 06:51] LABS: ALBUMIN 2.3 g/dl (3.4-5.0); ALK PHOS 123 U/L (45-117); BILIRUBIN,TOTAL 0.4 mg/dL (0.2-1.0); BLOOD UREA NITROGEN 16 mg/dL (7-18); CALCIUM 8.1 mg/dL (8.5-10.1); CO2 28 mmol/L (21-32); CREATININE 0.9 mg/dL (0.7-1.3); GLUCOSE,RANDOM 89 mg/dL (74-106); MAGNESIUM 2.3 mg/dL (1.8-2.4); PHOSPHOROUS 3.6 mg/dL (2.5-4.9); SGOT/AST 37 U/L (15-37); SGPT/ALT 53 U/L (12-78); TOT PROT 6.3 g/dl (6.4-8.2)
[2018-04-02 06:57] LABS: ANION GAP 6 (8-16)
--- NOTE | 2018-04-02 07:58 | PN ---
Progress Note (short form) - Note Progress Note: POD #7 s/p Open thrombectomy right iliac, sfa, Deep profunda artery, with RLE angiogram. A saddle embolus was discovered on Chest CTA. After careful review and discussions betweein Interventional Radiology/Cardiology and Pulmonary the conclusion was there is no gross evidence of Right Heart Failure or strain. Patient is resting comfortably without complaint. Denies n/v/f/c, CP, SOB, LOPEZ, hemoptysis. Last Vital Signs Temp Pulse Resp BP Pulse Ox 99.2 F 106 H 22 91/81 95 04/01/18 10:00 04/02/18 06:00 04/02/18 06:00 04/02/18 06:00 04/01/18 21:00 CBC, BMP 04/02/18 05:30 04/02/18 05:30 Gen: alert. nad Cor: afib rate controlled Pulm: cta bilat ABD: obese habitus. soft. nt LE: right groin incision c/d, mahesh intact. No hematoma. warm. DP 2+ Problem List - Problems (1) Arterial occlusion Assessment/Plan: POD #7 s/p Open thrombectomy right iliac, sfa, Deep profunda artery, with RLE angiogram. saddle embolus. No further vascular work-up or procedures planned. Cont ICU management at this time. Medical attending note appreciated regarding dc planning once afib rate controlled. Patient to f/u with Dr. Byrnes in 7 days for staple removal in his office at [facility] on [address] Yoder covering for Dr. Byrnes while he is away. On behalf of Dr. Byrnes, thank you for the opportunity to participate in your patient's care. Code(s): I70.90 - UNSPECIFIED ATHEROSCLEROSIS
--- NOTE | 2018-04-02 09:12 | PN ---
Progress Note, Physician - Current Medication List Current Medications: Active Medications Acetaminophen (Tylenol -) 650 mg PO Q6H PRN PRN Reason: FEVER/PAIN SCALE 1-5 Last Admin: 04/01/18 01:19 Dose: 650 mg Aspirin (Asa -) 81 mg PO DAILY [facility] Last Admin: 04/01/18 09:07 Dose: 81 mg Atorvastatin Calcium (Lipitor -) 20 mg PO HS [facility] Last Admin: 04/01/18 21:29 Dose: 20 mg Digoxin (Lanoxin -) 0.25 mg PO DAILY [facility] Docusate Sodium (Colace -) 100 mg PO DAILY [facility] Enoxaparin Sodium 100 mg/ (Enoxaparin Sodium 30 mg) 130 mg SQ BID [facility] Last Admin: 04/01/18 22:00 Dose: 130 mg Levothyroxine Sodium (Synthroid -) 50 mcg PO DAILY@0700 [facility] Last Admin: 04/02/18 06:15 Dose: 50 mcg Metoprolol Tartrate (Lopressor -) 100 mg PO BID [facility] Last Admin: 04/01/18 21:28 Dose: 100 mg Senna (Senna -) 1 tab PO BID [facility] Last Admin: 04/01/18 21:29 Dose: 1 tab Warfarin Sodium (Coumadin -) 7.5 mg PO DAILY@1800 [facility] Last Admin: 04/01/18 19:00 Dose: 7.5 mg - Objective Vital Signs: Vital Signs Temperature 99.2 F 04/01/18 10:00 Pulse Rate 116 H 04/02/18 08:00 Respiratory Rate 18 04/02/18 08:00 Blood Pressure 97/64 04/02/18 08:00 O2 Sat by Pulse Oximetry (%) 98 04/02/18 08:17 Cardiovascular: Yes: Tachycardia, Pulse Irregular, S1, S2 Respiratory: Yes: Regular, CTA Bilaterally Gastrointestinal: Yes: Normal Bowel Sounds, Soft Labs: CBC, BMP 04/02/18 05:30 04/02/18 05:30 INR, PTT INR 2.37 (0.83-1.09) H 04/02/18 05:30 Problem List - Problems (1) Arterial occlusion Code(s): I70.90 - UNSPECIFIED ATHEROSCLEROSIS (2) Atrial fibrillation Code(s): I48.91 - UNSPECIFIED ATRIAL FIBRILLATION Qualifiers: Atrial fibrillation type: unspecified Qualified Code(s): I48.91 - Unspecified atrial fibrillation (3) DVT (deep venous thrombosis) Code(s): I82.409 - ACUTE EMBOLISM AND THOMBOS UNSP DEEP VN UNSP LOWER EXTREMITY Qualifiers: DVT location: lower extremity Affected thrombotic vein of extremity: unspecified vein of extremity Chronicity: acute Laterality: right Qualified Code(s): I82.401 - Acute embolism and thrombosis of unspecified deep veins of right lower extremity (4) Hypothyroid Code(s): E03.9 - HYPOTHYROIDISM, UNSPECIFIED (5) Tachycardia Code(s): R00.0 - TACHYCARDIA, UNSPECIFIED Assessment/Plan - Problems (1) Atrial fibrillation Assessment/Plan: -Chronic--Rapid -Add Dig bp low -Was on AC outpatient with poor compliance -Currently on Heparin drip Code(s): I48.91 - UNSPECIFIED ATRIAL FIBRILLATION Qualifiers: Atrial fibrillation type: unspecified Qualified Code(s): I48.91 - Unspecified atrial fibrillation (2) DVT (deep venous thrombosis) Assessment/Plan: -Provoked 2/2 to travel and recent major shoulder surgery -S/P thrombectomy -On heparin drip -Bridge to coumadin -Daily INR checks Code(s): I82.409 - ACUTE EMBOLISM AND THOMBOS UNSP DEEP VN UNSP LOWER EXTREMITY Qualifiers: DVT location: lower extremity Affected thrombotic vein of extremity: unspecified vein of extremity Chronicity: acute Laterality: right Qualified Code(s): I82.401 - Acute embolism and thrombosis of unspecified deep veins of right lower extremity (3) Pulmonary embolism Assessment/Plan: -saddle PE seen on Chest CTA -Echo done with no signs of RHF -Seen by Pulmonary and Cardiology -Hematology on board -On heparin drip, bridge to Coumadin until therapeutic with INR between 2-3 -No IR intervention recommended at this time, no benefit, pt w/o any S&S -Had extensive discussion between patient and son and Pulmonary, all questions addressed. -restart Low sodium diet Code(s): I26.99 - OTHER PULMONARY EMBOLISM WITHOUT ACUTE COR PULMONALE (4) Anemia Assessment/Plan: -gradual drop -Stool OB pending -Check Iron profile and B 12 -Monitor trend Code(s): D64.9 - ANEMIA, UNSPECIFIED
[2018-04-02] MEDS: METOPROLOL TARTRATE 50 MG TABLET (FP) PO SCH ×2 (09:36→21:24)
[2018-04-02] MEDS: ASPIRIN 81 MG CHEWABLE TABLETS PO SCH (09:37)
[2018-04-02] MEDS: SENNOSIDES 8.6MG TABLET (FP) PO SCH ×2 (09:37→21:15)
[2018-04-02] MEDS: DOCUSATE SODIUM 100 MG CAPSULE (FP) PO SCH (09:37)
--- NOTE | 2018-04-02 09:37 | PN ---
Progress Note, Physician Chief Complaint: leg pain History of Present Illness: R foot pain much improved, no more numbness/cold no palpit, cp, sob no cigs - Current Medication List Current Medications: Active Medications Acetaminophen (Tylenol -) 650 mg PO Q6H PRN PRN Reason: FEVER/PAIN SCALE 1-5 Last Admin: 04/01/18 01:19 Dose: 650 mg Aspirin (Asa -) 81 mg PO DAILY [facility] Last Admin: 04/01/18 09:07 Dose: 81 mg Atorvastatin Calcium (Lipitor -) 20 mg PO HS [facility] Last Admin: 04/01/18 21:29 Dose: 20 mg Digoxin (Lanoxin -) 0.25 mg PO DAILY [facility] Docusate Sodium (Colace -) 100 mg PO DAILY [facility] Enoxaparin Sodium 100 mg/ (Enoxaparin Sodium 30 mg) 130 mg SQ BID [facility] Last Admin: 04/01/18 22:00 Dose: 130 mg Levothyroxine Sodium (Synthroid -) 50 mcg PO DAILY@0700 [facility] Last Admin: 04/02/18 06:15 Dose: 50 mcg Metoprolol Tartrate (Lopressor -) 100 mg PO BID [facility] Last Admin: 04/01/18 21:28 Dose: 100 mg Senna (Senna -) 1 tab PO BID [facility] Last Admin: 04/01/18 21:29 Dose: 1 tab Warfarin Sodium (Coumadin -) 7.5 mg PO DAILY@1800 [facility] Last Admin: 04/01/18 19:00 Dose: 7.5 mg - Objective Vital Signs: Vital Signs Temperature 99.2 F 04/01/18 10:00 Pulse Rate 116 H 04/02/18 08:00 Respiratory Rate 18 04/02/18 08:00 Blood Pressure 97/64 04/02/18 08:00 O2 Sat by Pulse Oximetry (%) 98 04/02/18 08:17 Constitutional: Yes: No Distress, Calm, Obese Cardiovascular: Yes: Regular Rate and Rhythm, S1, S2. No: JVD, Gallop, Murmur Respiratory: Yes: Regular, CTA Bilaterally. No: Accessory Muscle Use, Rales Extremities: No: Cold Edema: No Neurological: Yes: Alert, Oriented Psychiatric: No: Agitated Labs: CBC, BMP 04/02/18 05:30 04/02/18 05:30 INR, PTT INR 2.37 (0.83-1.09) H 04/02/18 05:30 Assessment/Plan Echo 03/30/18 here: TDS, nl LVEF, RV appears mildly dilated, cannot assess function Echo 03/29/18 here: tds, nl lvef, rv tds, kenia, no sig valve path Echo 02/12: afib; TDS; nl LV size and LVSF (EF at least 55%). RV tds: ? mild dilation, can't assess RVSF. ? nl LA size. valves WNL. mildly dilated ao root ( 3.9 cm) ECG: afib, no path q's; NSTWAs septal leads cta chest: large saddle pe a/p: persistent AF: - had not been on AC at home (CHADS-VASC 0 (no known h/o HTN)), poor follow up, now on heparin gtt - s/p open thrombectomy of R iliac, SFA, deep profunda, and angiogram and is on heparin gtt, likely related to atheroembolic event from afib - HRs rapid in 2015, metopr increased to 50 qd then. no f/u until 2018, HRs again rapid--increased metopr to 50 bid. - remains rapid here, metopr up to 100 bid, digoxin 0.25 added. - transiently on diltiazem gtt here 8/3 pm--review of chart shows HR improved from 140s to 100s then--gtt subsequently stopped. - bp's running low (90s), suspect sec to high dose metoprolol. - metopr not working well (remains rapid)--decr dose toprol 100 bid to 50 bid. start diltiazem 60 TID. d/c digoxin. - low likelihood to respond to DCCV attempt given longstanding persistent AF for > 2 yrs now. consider ablation evaluation as outpt. DVT/PE: -saddle PE seen on cta, pt has no sxs or signs of RHF. Due to pt body habitus two echos were tds for rv strain. Echo images reviewed by our team--cannot definitively see evidence of RV failure/strain, no signif RV dilation on CT chest per d/w dr zabala. Clinically he has no signs RHF. IR thrombolysis deferred per consensus with I.R., critical care, and our team given risks likely >> benefits -also with distal SFV and popliteal vein thrombus on duplex, recent shoulder surgery -heme following. rec outpt hypercoag eval, malignancy rule-out +/- family member screening as indicated hypotension: -sbp 90s. suspect med effect of high dose metoprolol. -no signs sepsis or cardiogenic shock clinically -no signs RV failure clinically, with prohibitively poor echo images as above ( no signs RV strain based on CT scan size per reveiw with dr zabala) -observe clinically while adjust AVN blockers as above hypothyroidism: - on synthroid, manage per primary team est time spent in pt exam, data review, and formulating mgmt plan of potentially life-threatening conditions = 35 min
[2018-04-02] MEDS: ENOXAPARIN 100 MG, ENOXAPARIN 30 MG SQ SCH ×2 (09:38→21:16)
[2018-04-02] MEDS ORDERED: DIGOXIN 0.25 MG TABLET (FP) PO SCH (10:00)
--- NOTE | 2018-04-02 11:25 | EKG ---
Test Reason : Blood Pressure : / mmHG Vent. Rate : 106 BPM Atrial Rate : 122 BPM P-R Int : 000 ms QRS Dur : 070 ms QT Int : 344 ms P-R-T Axes : 000 -01 027 degrees QTc Int : 456 ms ATRIAL FIBRILLATION WITH RAPID VENTRICULAR RESPONSE WITH PREMATURE VENTRICULAR OR ABERRANTLY CONDUCTED COMPLEXES ABNORMAL ECG WHEN COMPARED WITH ECG OF 30-MAR-2018 15:36, NO SIGNIFICANT CHANGE WAS FOUND Confirmed by LAURA LOPEZ, RICKEY ([id number]) on 04/02/2018 11:25:17 AM Referred By: FRANCIS WEBBER DR Confirmed By:RICKEY SANCHEZ MD
--- NOTE | 2018-04-02 12:20 | PN ---
Teaching Attending Note Name of Resident: Viri Lucero ATTENDING PHYSICIAN STATEMENT I saw and evaluated the patient. I reviewed the resident's note and discussed the case with the resident. I agree with the resident's findings and plan as documented. SUBJECTIVE: Pt seen and examined in the ICU. Denies shortness of breath, chest pain, or palpitations. OBJECTIVE: Vital Signs Period Temp Pulse Resp BP Sys/Cooper Pulse Ox Last 24 Hr 94-117 14-27 91-114/60-81 95-98 Intake & Output 03/30/18 03/31/18 04/01/18 04/02/18 23:59 23:59 23:59 23:59 Intake Total 1308 700.5 100 Output Total 1100 1500 800 700 Balance 208 -799.5 -700 -700 Weight 136.531 kg 135.2 kg 72.711 kg 134.7 kg Gen: NAD at rest Heart: tachycardic, irregular Lung: distant breath sounds Abd: soft, nontender Ext: no edema CBC, BMP 04/02/18 05:30 04/02/18 05:30 INR, PTT INR 2.37 (0.83-1.09) H 04/02/18 05:30 Active Medications Acetaminophen (Tylenol -) 650 mg PO Q6H PRN PRN Reason: FEVER/PAIN SCALE 1-5 Last Admin: 04/01/18 01:19 Dose: 650 mg Aspirin (Asa -) 81 mg PO DAILY [facility] Last Admin: 04/02/18 09:37 Dose: 81 mg Atorvastatin Calcium (Lipitor -) 20 mg PO HS [facility] Last Admin: 04/01/18 21:29 Dose: 20 mg Diltiazem HCl (Cardizem -) 60 mg PO TID [facility] Docusate Sodium (Colace -) 100 mg PO DAILY [facility] Last Admin: 04/02/18 09:37 Dose: 100 mg Enoxaparin Sodium 100 mg/ (Enoxaparin Sodium 30 mg) 130 mg SQ BID [facility] Last Admin: 04/02/18 09:38 Dose: 130 mg Levothyroxine Sodium (Synthroid -) 50 mcg PO DAILY@0700 [facility] Last Admin: 04/02/18 06:15 Dose: 50 mcg Metoprolol Tartrate (Lopressor -) 50 mg PO BID [facility] Senna (Senna -) 1 tab PO BID [facility] Last Admin: 04/02/18 09:37 Dose: 1 tab Warfarin Sodium (Coumadin -) 7.5 mg PO DAILY@1800 [facility] Last Admin: 04/01/18 19:00 Dose: 7.5 mg ASSESSMENT AND PLAN: PAD/R iliac/SFA/deep profunda thrombus s/o open thrombectomy Acute Pulmonary Emboli RLE DVT Atrial Fibrillation with RVR Hypothyroidism - continue anticoagulation, target INR 2-3 - rate control, titrate beta erlinda and CCB - O2 to keep SpO2 >90% - can monitor on telemetry
[2018-04-02] MEDS: dilTIAZem HCL 60 MG TABLET (FP) PO SCH ×2 (13:27→21:15)
--- NOTE | 2018-04-02 15:05 | PN ---
Physical Exam: SUBJECTIVE: Patient seen and examined at bedside. has no acute complaints overnight; denies any CP/SOB/or palpitations. has been out of bed for a few steps and feels the weakness in his knees is improving. his HR still remains elevated however patient is asymptomatic. OBJECTIVE: Vital Signs Period Temp Pulse Resp BP Sys/Cooper Pulse Ox Last 24 Hr 94-117 14-27 91-114/64-81 95-98 GENERAL: The patient is awake, alert, and fully oriented, in no acute distress. LUNGS: Breath sounds equal, clear to auscultation bilaterally, no wheezes, no crackles, no accessory muscle use. HEART: tachycardic and irregular, S1, S2 without murmur, rub or gallop. ABDOMEN: Soft, nontender, nondistended, normoactive bowel sounds, no guarding, no rebound, no hepatosplenomegaly, no masses. EXTREMITIES: 2+ pulses, warm, well-perfused, no edema. PSYCH: Normal mood, normal affect. SKIN: Warm, dry, normal turgor, no rashes or lesions noted Laboratory Results - last 24 hr 04/02/18 04/02/18 04/02/18 05:30 05:30 05:30 WBC 7.7 RBC 3.24 L Hgb 10.2 L Hct 29.5 L MCV 91.0 MCH 31.6 MCHC 34.7 RDW 14.2 Plt Count 236 MPV 8.7 Absolute Neuts (auto) 5.6 Neutrophils % 73.0 Lymphocytes % 15.7 Monocytes % 9.0 Eosinophils % 1.5 Basophils % 0.8 Nucleated RBC % 0 PT with INR 26.80 H INR 2.37 H Sodium 138 Potassium 4.2 Chloride 104 Carbon Dioxide 28 Anion Gap 6 L BUN 16 Creatinine 0.9 Creat Clearance w eGFR > 60 Random Glucose 89 Calcium 8.1 L Phosphorus 3.6 Magnesium 2.3 Total Bilirubin 0.4 AST 37 ALT 53 Alkaline Phosphatase 123 H Total Protein 6.3 L Albumin 2.3 L Active Medications Generic Name Dose Route Start Last Admin Trade Name Freq PRN Reason Stop Dose Admin Acetaminophen 650 mg 03/27/18 15:27 04/01/18 01:19 Tylenol - PO 650 mg Q6H PRN Administration FEVER/PAIN SCALE 1-5 Aspirin 81 mg 03/28/18 10:00 04/02/18 09:37 Asa - PO 81 mg DAILY [facility] Administration Atorvastatin Calcium 20 mg 03/27/18 22:00 04/01/18 21:29 Lipitor - PO 20 mg HS [facility] Administration Diltiazem HCl 60 mg 04/02/18 14:00 04/02/18 13:27 Cardizem - PO 60 mg TID [facility] Administration Docusate Sodium 100 mg 04/02/18 10:00 04/02/18 09:37 Colace - PO 100 mg DAILY [facility] Administration Enoxaparin Sodium 100 mg/ 130 mg 03/30/18 14:00 04/02/18 09:38 Enoxaparin Sodium 30 mg SQ 130 mg BID [facility] Administration Levothyroxine Sodium 50 mcg 03/28/18 07:00 04/02/18 06:15 Synthroid - PO 50 mcg DAILY@0700 [facility] Administration Metoprolol Tartrate 50 mg 04/02/18 11:09 Lopressor - PO BID [facility] Senna 1 tab 04/01/18 22:00 04/02/18 09:37 Senna - PO 1 tab BID [facility] Administration Warfarin Sodium 7.5 mg 03/30/18 18:00 04/01/18 19:00 Coumadin - PO 7.5 mg DAILY@1800 [facility] Administration ASSESSMENT/PLAN: 62 y/o M w/PMH of AFib (not on AC), HTN found to have DVT and subsequently found to have PE w/saddle embolus. Cardio: Afib/HTN/HLD patients HR still remains elevated -was seen by Dr. Mendez; switched meds to Diltiazem 60 TID and lowered lopressor to 50 BID -continue to monitor HR HLD: continue with lipitor Respiratory: Saddle PE -patient not getting intervention for PE at the moment -currently on Lovenox bridging to coumadin for AC -repeat PT/INR in am -monitor O2 saturations F/E/N: -no standing fluids -replete electrolytes if needed -low sodium diet dispo: can go to telemetry Problem List - Problems (1) Arterial occlusion Code(s): I70.90 - UNSPECIFIED ATHEROSCLEROSIS (2) Atrial fibrillation Code(s): I48.91 - UNSPECIFIED ATRIAL FIBRILLATION Qualifiers: Atrial fibrillation type: unspecified Qualified Code(s): I48.91 - Unspecified atrial fibrillation (3) DVT (deep venous thrombosis) Code(s): I82.409 - ACUTE EMBOLISM AND THOMBOS UNSP DEEP VN UNSP LOWER EXTREMITY Qualifiers: DVT location: lower extremity Affected thrombotic vein of extremity: unspecified vein of extremity Chronicity: acute Laterality: right Qualified Code(s): I82.401 - Acute embolism and thrombosis of unspecified deep veins of right lower extremity (4) Pulmonary embolism Code(s): I26.99 - OTHER PULMONARY EMBOLISM WITHOUT ACUTE COR PULMONALE Visit type - Emergency Visit Emergency Visit: Yes ED Registration Date: 03/26/18 Care time: The patient presented to the Emergency Department on the above date and was hospitalized for further evaluation of their emergent condition. - New Patient This patient is new to me today: No - Critical Care Critical Care patient: Yes Total Critical Care Time (in minutes): 35 Critical Care Statement: The care of this patient involved high complexity decision making to prevent further life threatening deterioration of the patient 's condition and/or to evaluate & treat vital organ system(s) failure or risk of failure.
--- NOTE | 2018-04-02 16:27 | PN ---
Progress Note (short form) - Note Progress Note: Patient seen and examined Clinically improved OOB with ambulation in room. Develops tachycardia ROS- no headaches, diplopia, epistaxis, dysphagia, chest pain, SOB, dyspnea, nausea, emesis, diarrhea, constipation, dysuria, hematuria, back or bone pains Last Vital Signs Temp Pulse Resp BP Pulse Ox 99.2 F 94 H 20 114/74 98 04/01/18 10:00 04/02/18 10:00 04/02/18 10:00 04/02/18 10:00 04/02/18 08:17 HEENT: ANAHI, EOM Intact Oropharynx: No thrush, No mucositi Cor: RSR, No murmurs, No gallops Lungsdiminished breath sounds CBC, BMP 04/02/18 05:30 04/02/18 05:30 Abd: Soft, Normal bowel sounds, No organomegaly Ext:No significant edema Skin: No rashes, Integument intact Current Medications Generic Name Dose Route Start Last Admin Trade Name Freq PRN Reason Stop Dose Admin Acetaminophen 650 mg 03/27/18 15:27 04/01/18 01:19 Tylenol - PO 650 mg Q6H PRN Administration FEVER/PAIN SCALE 1-5 Aspirin 81 mg 03/28/18 10:00 04/02/18 09:37 Asa - PO 81 mg DAILY [facility] Administration Atorvastatin Calcium 20 mg 03/27/18 22:00 04/01/18 21:29 Lipitor - PO 20 mg HS [facility] Administration Diltiazem HCl 60 mg 04/02/18 14:00 04/02/18 13:27 Cardizem - PO 60 mg TID [facility] Administration Docusate Sodium 100 mg 04/02/18 10:00 04/02/18 09:37 Colace - PO 100 mg DAILY [facility] Administration Enoxaparin Sodium 100 mg/ 130 mg 03/30/18 14:00 04/02/18 09:38 Enoxaparin Sodium 30 mg SQ 130 mg BID [facility] Administration Levothyroxine Sodium 50 mcg 03/28/18 07:00 04/02/18 06:15 Synthroid - PO 50 mcg DAILY@0700 [facility] Administration Metoprolol Tartrate 50 mg 04/02/18 11:09 Lopressor - PO BID [facility] Senna 1 tab 04/01/18 22:00 08/06/18 09:37 Senna - PO 1 tab BID [facility] Administration Warfarin Sodium 7.5 mg 03/30/18 18:00 04/01/18 19:00 Coumadin - PO 7.5 mg DAILY@1800 [facility] Administration Impression: ARterial thrombosis S/P thrombectomy DVT Atrial FIB P.E A/C Bridging lovenox to coumadin
[2018-04-02] MEDS: WARFARIN NA 7.5 MG TABLET (FP) PO SCH (18:41)
[2018-04-02] MEDS: ATORVASTATIN CA 20 MG TABLET (FP) PO SCH (21:15)
[2018-04-03 06:20] LABS: BASO % 0.8 % (0-2.0); EOS % 1.7 % (0-4.5); HEMATOCRIT 30.7 % (35.4-49); HEMOGLOBIN 10.5 GM/dL (11.7-16.9); LYMPH % 14.4 % (8-40); MCH 31.1 pg (25.7-33.7); MCHC 34.3 g/dl (32.0-35.9); MEAN CELL VOLUME 90.8 fl (80-96); MEAN PLT VOLUME 8.7 fl (7.5-11.1); MONO % 8.4 % (3.8-10.2); NEUT % 74.7 % (42.8-82.8); PLATELET COUNT 259 K/MM3 (134-434); RBC 3.39 M/mm3 (4.00-5.60); RDW 14.4 % (11.9-15.9); WHITE BLOOD COUNT 7.7 K/mm3 (4.0-10.0)
[2018-04-03 06:31] LABS: INR 3.41 (0.83-1.09); PROTHROMBIN TIME (PATIENT) 38.5 SEC (9.7-13.0)
[2018-04-03] MEDS: LEVOTHYROXINE NA 50 MCG TABLET (FP) PO SCH (06:34)
[2018-04-03] MEDS: dilTIAZem HCL 60 MG TABLET (FP) PO SCH ×3 (06:34→22:16)
[2018-04-03 06:50] LABS: CHLORIDE 107 mmol/L (98-107); POTASSIUM 4.2 mmol/L (3.5-5.1); SODIUM 141 mmol/L (136-145)
[2018-04-03 07:01] LABS: ALBUMIN 2.4 g/dl (3.4-5.0); ALK PHOS 122 U/L (45-117); ANION GAP 8 (8-16); BILIRUBIN,TOTAL 0.5 mg/dL (0.2-1.0); BLOOD UREA NITROGEN 15 mg/dL (7-18); CALCIUM 8.2 mg/dL (8.5-10.1); CO2 26 mmol/L (21-32); CREATININE 0.9 mg/dL (0.7-1.3); GLUCOSE,RANDOM 93 mg/dL (74-106); SGOT/AST 82 U/L (15-37); SGPT/ALT 85 U/L (12-78); TOT PROT 6.2 g/dl (6.4-8.2)
--- NOTE | 2018-04-03 07:50 | PN ---
Progress Note, Physician History of Present Illness: no complaints - Current Medication List Current Medications: Active Medications Acetaminophen (Tylenol -) 650 mg PO Q6H PRN PRN Reason: FEVER/PAIN SCALE 1-5 Last Admin: 04/01/18 01:19 Dose: 650 mg Aspirin (Asa -) 81 mg PO DAILY [facility] Last Admin: 04/02/18 09:37 Dose: 81 mg Atorvastatin Calcium (Lipitor -) 20 mg PO HS [facility] Last Admin: 04/02/18 21:15 Dose: 20 mg Diltiazem HCl (Cardizem -) 60 mg PO TID [facility] Last Admin: 04/03/18 06:34 Dose: 60 mg Docusate Sodium (Colace -) 100 mg PO DAILY [facility] Last Admin: 04/02/18 09:37 Dose: 100 mg Enoxaparin Sodium 100 mg/ (Enoxaparin Sodium 30 mg) 130 mg SQ BID [facility] Last Admin: 04/02/18 21:16 Dose: 130 mg Levothyroxine Sodium (Synthroid -) 50 mcg PO DAILY@0700 [facility] Last Admin: 04/03/18 06:34 Dose: 50 mcg Metoprolol Tartrate (Lopressor -) 50 mg PO BID [facility] Last Admin: 04/02/18 21:24 Dose: 50 mg Senna (Senna -) 1 tab PO BID [facility] Last Admin: 04/02/18 21:15 Dose: 1 tab Warfarin Sodium (Coumadin -) 7.5 mg PO DAILY@1800 [facility] Last Admin: 04/02/18 18:41 Dose: 7.5 mg - Objective Vital Signs: Vital Signs Temperature 98.4 F 04/03/18 02:00 Pulse Rate 98 H 04/03/18 06:00 Respiratory Rate 20 04/03/18 06:00 Blood Pressure 98/79 04/03/18 06:00 O2 Sat by Pulse Oximetry (%) 95 04/02/18 20:47 Cardiovascular: Yes: Tachycardia, Pulse Irregular, S1, S2 Respiratory: Yes: Regular, CTA Bilaterally Gastrointestinal: Yes: Normal Bowel Sounds, Soft Labs: CBC, BMP 04/03/18 05:30 04/03/18 05:30 INR, PTT INR 3.41 (0.83-1.09) H* 04/03/18 05:30 Problem List - Problems (1) Arterial occlusion Code(s): I70.90 - UNSPECIFIED ATHEROSCLEROSIS (2) Atrial fibrillation Code(s): I48.91 - UNSPECIFIED ATRIAL FIBRILLATION Qualifiers: Atrial fibrillation type: unspecified Qualified Code(s): I48.91 - Unspecified atrial fibrillation (3) DVT (deep venous thrombosis) Code(s): I82.409 - ACUTE EMBOLISM AND THOMBOS UNSP DEEP VN UNSP LOWER EXTREMITY Qualifiers: DVT location: lower extremity Affected thrombotic vein of extremity: unspecified vein of extremity Chronicity: acute Laterality: right Qualified Code(s): I82.401 - Acute embolism and thrombosis of unspecified deep veins of right lower extremity (4) Hypothyroid Code(s): E03.9 - HYPOTHYROIDISM, UNSPECIFIED (5) Tachycardia Code(s): R00.0 - TACHYCARDIA, UNSPECIFIED Assessment/Plan - Problems (1) Atrial fibrillation Assessment/Plan: -Chronic--Rapid -Add Dig bp low -on metoprolol 50 bid and cardizem 60 tid -on coumadin Code(s): I48.91 - UNSPECIFIED ATRIAL FIBRILLATION Qualifiers: Atrial fibrillation type: unspecified Qualified Code(s): I48.91 - Unspecified atrial fibrillation (2) DVT (deep venous thrombosis) Assessment/Plan: -Provoked 2/2 to travel and recent major shoulder surgery -On coumadin -Daily INR checks Code(s): I82.409 - ACUTE EMBOLISM AND THOMBOS UNSP DEEP VN UNSP LOWER EXTREMITY Qualifiers: DVT location: lower extremity Affected thrombotic vein of extremity: unspecified vein of extremity Chronicity: acute Laterality: right Qualified Code(s): I82.401 - Acute embolism and thrombosis of unspecified deep veins of right lower extremity (3) Pulmonary embolism Assessment/Plan: -saddle PE seen on Chest CTA -Echo done with no signs of RHF -Seen by Pulmonary and Cardiology -Hematology on board -On Coumadin -No IR intervention recommended at this time, no benefit, pt w/o any S&S -Had extensive discussion between patient and son and Pulmonary, all questions addressed. Code(s): I26.99 - OTHER PULMONARY EMBOLISM WITHOUT ACUTE COR PULMONALE (4) Anemia Assessment/Plan: -Monitor trend Code(s): D64.9 - ANEMIA, UNSPECIFIED
[2018-04-03] MEDS ORDERED: PT OWN MED DRAWER 7, Y5N ONE ×2 (10:00→10:02)
[2018-04-03] MEDS: ASPIRIN 81 MG CHEWABLE TABLETS PO SCH (10:07)
[2018-04-03] MEDS: SENNOSIDES 8.6MG TABLET (FP) PO SCH (10:07)
[2018-04-03] MEDS: METOPROLOL TARTRATE 50 MG TABLET (FP) PO SCH (10:07)
[2018-04-03] MEDS: DOCUSATE SODIUM 100 MG CAPSULE (FP) PO SCH (10:07)
[2018-04-03] MEDS: ENOXAPARIN 100 MG, ENOXAPARIN 30 MG SQ SCH (10:10)
--- NOTE | 2018-04-03 10:52 | PN ---
Progress Note (short form) - Note Progress Note: cc: leg pain s: no cp, dyspnea, palps tele: afib 80s-90s no cigs Current Medications Acetaminophen (Tylenol -) 650 mg PO Q6H PRN PRN Reason: FEVER/PAIN SCALE 1-5 Last Admin: 04/01/18 01:19 Dose: 650 mg Aspirin (Asa -) 81 mg PO DAILY [facility] Last Admin: 04/03/18 10:07 Dose: 81 mg Atorvastatin Calcium (Lipitor -) 20 mg PO HS [facility] Last Admin: 04/02/18 21:15 Dose: 20 mg Diltiazem HCl (Cardizem -) 60 mg PO TID [facility] Last Admin: 04/03/18 06:34 Dose: 60 mg Docusate Sodium (Colace -) 100 mg PO DAILY [facility] Last Admin: 04/03/18 10:07 Dose: 100 mg Enoxaparin Sodium 100 mg/ (Enoxaparin Sodium 30 mg) 130 mg SQ BID [facility] Last Admin: 04/03/18 10:10 Dose: 130 mg Levothyroxine Sodium (Synthroid -) 50 mcg PO DAILY@0700 [facility] Last Admin: 04/03/18 06:34 Dose: 50 mcg Metoprolol Tartrate (Lopressor -) 50 mg PO BID [facility] Last Admin: 04/03/18 10:07 Dose: 50 mg Senna (Senna -) 1 tab PO BID [facility] Last Admin: 04/03/18 10:07 Dose: 1 tab Warfarin Sodium (Coumadin -) 7.5 mg PO DAILY@1800 [facility] Last Admin: 04/02/18 18:41 Dose: 7.5 mg - Objective Vital Signs Period Temp Pulse Resp BP Sys/Cooper Pulse Ox Last 24 Hr 98 F-98.5 F 85-98 14-53 87-114/63-97 95-98 Constitutional: Yes: No Distress, Calm, Obese Cardiovascular: Yes: Regular Rate and Rhythm, S1, S2. No: JVD, Gallop, Murmur Respiratory: Yes: Regular, CTA Bilaterally. No: Accessory Muscle Use, Rales Extremities: No: Cold Edema: No Neurological: Yes: Alert, Oriented Psychiatric: No: Agitated Assessment/Plan Echo 03/30/18 here: TDS, nl LVEF, RV appears mildly dilated, cannot assess function Echo 03/29/18 here: tds, nl lvef, rv tds, kenia, no sig valve path Echo 02/12: afib; TDS; nl LV size and LVSF (EF at least 55%). RV tds: ? mild dilation, can't assess RVSF. ? nl LA size. valves WNL. mildly dilated ao root ( 3.9 cm) ECG: afib, no path q's; NSTWAs septal leads cta chest: large saddle pe a/p: persistent AF: - had not been on AC at home (CHADS-VASC 0 (no known h/o HTN)), poor follow up - s/p open thrombectomy of R iliac, SFA, deep profunda, and angiogram likely related to atheroembolic event from afib - remains rapid here, metopr up to 100 bid during admission, digoxin 0.25 added without improved rates and low BP noted - 04/02 metoprolol decreased from 100 BID to 50 mg BID with diltiazem 60 mb TID started and digoxin dc - still has low BPs, rate control is improved. will decrease metoprolol to 25 mg BID, continue current cardizem dose - low likelihood to respond to DCCV attempt given longstanding persistent AF for > 2 yrs now. consider ablation evaluation as outpt. DVT/PE: -saddle PE seen on cta, pt has no sxs or signs of RHF. Due to pt body habitus two echos were tds for rv strain. Echo images reviewed by our team--cannot definitively see evidence of RV failure/strain, no signif RV dilation on CT chest per d/w dr zabala. Clinically he has no signs RHF. IR thrombolysis deferred per consensus with I.R., critical care, and our team given risks likely >> benefits -also with distal SFV and popliteal vein thrombus on duplex, recent shoulder surgery -heme following. rec outpt hypercoag eval, malignancy rule-out +/- family member screening as indicated - will do echo with Definity microbubble contrast as outpatient, for more accurate assessment of both the LV and RV function (not available here) hypotension: -sbp 90s. suspect med effect of high dose metoprolol, which has been decreased and diltiazem started -no signs sepsis or cardiogenic shock clinically -no signs RV failure clinically, with prohibitively poor echo images as above ( no signs RV strain based on CT scan size per reveiw with dr zabala) -observe clinically while adjust AVN blockers as above hypothyroidism: - on synthroid, manage per primary team est time spent in pt exam, data review, and formulating mgmt plan of potentially life-threatening conditions = 35 min
--- NOTE | 2018-04-03 12:43 | PN ---
Teaching Attending Note Name of Resident: Viri Lucero ATTENDING PHYSICIAN STATEMENT I saw and evaluated the patient. I reviewed the resident's note and discussed the case with the resident. I agree with the resident's findings and plan as documented. SUBJECTIVE: Pt seen and examined in the ICU. Denies shortness of breath, chest pain or palpitations. Heart rates better controlled. OBJECTIVE: Vital Signs Period Temp Pulse Resp BP Sys/Cooper Pulse Ox Last 24 Hr 98.2 F-98.5 F 85-98 14-53 87-114/63-97 95-98 Intake & Output 03/31/18 04/01/18 04/02/18 04/03/18 23:59 23:59 23:59 23:59 Intake Total 700.5 100 500 Output Total 1500 052 414 4018 Balance -799.5 -700 -200 -1300 Weight 135.2 kg 72.711 kg 134.7 kg Gen: NAD at rest Heart: RRR Lung: decreased breath sounds at the bases Abd: soft, nontender Ext: trace edema CBC, BMP 04/03/18 05:30 04/03/18 05:30 INR, PTT INR 3.41 (0.83-1.09) H* 04/03/18 05:30 Active Medications Acetaminophen (Tylenol -) 650 mg PO Q6H PRN PRN Reason: FEVER/PAIN SCALE 1-5 Last Admin: 04/01/18 01:19 Dose: 650 mg Aspirin (Asa -) 81 mg PO DAILY [facility] Last Admin: 04/03/18 10:07 Dose: 81 mg Atorvastatin Calcium (Lipitor -) 20 mg PO HS [facility] Last Admin: 04/02/18 21:15 Dose: 20 mg Diltiazem HCl (Cardizem -) 60 mg PO TID [facility] Last Admin: 04/03/18 06:34 Dose: 60 mg Docusate Sodium (Colace -) 100 mg PO DAILY [facility] Last Admin: 04/03/18 10:07 Dose: 100 mg Enoxaparin Sodium 100 mg/ (Enoxaparin Sodium 30 mg) 130 mg SQ BID [facility] Last Admin: 04/03/18 10:10 Dose: 130 mg Levothyroxine Sodium (Synthroid -) 50 mcg PO DAILY@0700 [facility] Last Admin: 04/03/18 06:34 Dose: 50 mcg Metoprolol Tartrate (Lopressor -) 25 mg PO BID [facility] Warfarin Sodium (Coumadin -) 7.5 mg PO DAILY@1800 [facility] Last Admin: 04/02/18 18:41 Dose: 7.5 mg ASSESSMENT AND PLAN: PAD/R iliac/SFA/deep profunda thrombus s/o open thrombectomy Acute Pulmonary Emboli RLE DVT Atrial Fibrillation with RVR Hypothyroidism - hold coumadin today, restart tomorrow at 5mg, target INR 2-3 - rate control, titrate beta erlinda and CCB - O2 to keep SpO2 >90% - can monitor on telemetry
[2018-04-03] MEDS ORDERED: ACETAMINOPHEN 325 MG TABLET (FP) PO PRN (12:52)
--- NOTE | 2018-04-03 15:39 | PN ---
Physical Exam: SUBJECTIVE: Patient seen and examined at bedside. no acute events overnight. patient states he is feeling well and is anxious to leave. he got out of bed yesterday and was asymptomatic. he is not having anymore stiffness of the knees and is no longer in any pain at his embolectomy site. he denies any CP/SOB/N/V OBJECTIVE: Vital Signs Period Temp Pulse Resp BP Sys/Cooper Pulse Ox Last 24 Hr 98.2 F-98.6 F 85-98 14-53 87-109/63-87 95-98 GENERAL: The patient is awake, alert, and fully oriented, in no acute distress. LUNGS: Breath sounds equal, clear to auscultation bilaterally, no wheezes, no crackles, no accessory muscle use. HEART: Regular rate and rhythm, S1, S2 without murmur, rub or gallop. ABDOMEN: Soft, nontender, nondistended, normoactive bowel sounds, no guarding, no rebound, no hepatosplenomegaly, no masses. EXTREMITIES: 2+ pulses, warm, well-perfused, +1 edema B/L SKIN: Warm, dry, normal turgor, no rashes or lesions noted Laboratory Results - last 24 hr 04/03/18 04/03/18 04/03/18 05:30 05:30 05:30 WBC 7.7 RBC 3.39 L Hgb 10.5 L Hct 30.7 L MCV 90.8 MCH 31.1 MCHC 34.3 RDW 14.4 Plt Count 259 MPV 8.7 Absolute Neuts (auto) 5.7 Neutrophils % 74.7 Lymphocytes % 14.4 Monocytes % 8.4 Eosinophils % 1.7 Basophils % 0.8 Nucleated RBC % 0 PT with INR 38.50 H INR 3.41 H* Sodium 141 Potassium 4.2 Chloride 107 Carbon Dioxide 26 Anion Gap 8 BUN 15 Creatinine 0.9 Creat Clearance w eGFR > 60 Random Glucose 93 Calcium 8.2 L Total Bilirubin 0.5 AST 82 H D ALT 85 H D Alkaline Phosphatase 122 H Total Protein 6.2 L Albumin 2.4 L Active Medications Generic Name Dose Route Start Last Admin Trade Name Freq PRN Reason Stop Dose Admin Acetaminophen 650 mg 04/03/18 12:52 Tylenol - PO Q6H PRN FEVER/PAIN SCALE 1-5 Aspirin 81 mg 04/04/18 10:00 Asa - PO DAILY PETE Atorvastatin Calcium 20 mg 04/03/18 22:00 Lipitor - PO HS PETE Diltiazem HCl 60 mg 04/02/18 14:00 04/03/18 13:51 Cardizem - PO 60 mg TID PETE Administration Docusate Sodium 100 mg 04/02/18 10:00 04/03/18 10:07 Colace - PO 100 mg DAILY PETE Administration Enoxaparin Sodium 100 mg/ 130 mg 04/03/18 22:00 Enoxaparin Sodium 30 mg SQ BID [facility] Levothyroxine Sodium 50 mcg 04/04/18 07:00 Synthroid - PO DAILY@0700 [facility] Metoprolol Tartrate 25 mg 04/03/18 22:00 Lopressor - PO BID PETE ASSESSMENT/PLAN: 62 y/o M w/PMH of AFib (not on AC), HTN found to have DVT and subsequently found to have PE w/saddle embolus. Cardio: afib/HLD patients max HR was 122 but patient is asymptomatic -continue to monitor HR -c/w toprol 25 BID, cardizem 60 TID, -continue with lipitor 20mg for HLD -outpatient follow up with diaper folder Respiratory: patient found to have saddle PE -not a candidate now for intervention -currently taking lovenox while bridging with coumadin -INR was 3.41 this am; holding coumadin -will recheck INR in am might have to lower dose of coumadin F/E/N not on fluids monitor electrolytes sodium restricted diet dispo: monitor to tele Problem List - Problems (1) Arterial occlusion Code(s): I70.90 - UNSPECIFIED ATHEROSCLEROSIS (2) Atrial fibrillation Code(s): I48.91 - UNSPECIFIED ATRIAL FIBRILLATION Qualifiers: Atrial fibrillation type: unspecified Qualified Code(s): I48.91 - Unspecified atrial fibrillation (3) DVT (deep venous thrombosis) Code(s): I82.409 - ACUTE EMBOLISM AND THOMBOS UNSP DEEP VN UNSP LOWER EXTREMITY Qualifiers: DVT location: lower extremity Affected thrombotic vein of extremity: unspecified vein of extremity Chronicity: acute Laterality: right Qualified Code(s): I82.401 - Acute embolism and thrombosis of unspecified deep veins of right lower extremity (4) Pulmonary embolism Code(s): I26.99 - OTHER PULMONARY EMBOLISM WITHOUT ACUTE COR PULMONALE Visit type - Emergency Visit Emergency Visit: Yes ED Registration Date: 03/26/18 Care time: The patient presented to the Emergency Department on the above date and was hospitalized for further evaluation of their emergent condition. - New Patient This patient is new to me today: No - Critical Care Critical Care patient: Yes Total Critical Care Time (in minutes): 35 Critical Care Statement: The care of this patient involved high complexity decision making to prevent further life threatening deterioration of the patient 's condition and/or to evaluate & treat vital organ system(s) failure or risk of failure.
[2018-04-03] MEDS ORDERED: WARFARIN NA 7.5 MG TABLET (FP) PO SCH (18:00)
--- NOTE | 2018-04-03 18:41 | PN ---
Progress Note (short form) - Note Progress Note: Patient seen and examined Transferred from ICU to telemetry No chest pain or SOB Less tachycardia with ambulation No calf pains Last Vital Signs Temp Pulse Resp BP Pulse Ox 98.6 F 78 22 124/54 98 04/03/18 14:00 04/03/18 17:06 04/03/18 16:00 04/03/18 17:06 04/03/18 09:00 HEENT: ANAHI, EOM Intact Oropharynx: No thrush, No mucositis Neck: Supple Cor: RSR, No murmurs, No gallops Lungs: Clear to P&A Abd: Soft, Normal bowel sounds, No organomegaly Ext:No significant edema Skin: No rashes, Integument intact CBC, BMP 04/03/18 05:30 04/03/18 05:30 Current Medications Generic Name Dose Route Start Last Admin Trade Name Freq PRN Reason Stop Dose Admin Acetaminophen 650 mg 04/03/18 12:52 Tylenol - PO Q6H PRN FEVER/PAIN SCALE 1-5 Aspirin 81 mg 04/04/18 10:00 Asa - PO DAILY [facility] Atorvastatin Calcium 20 mg 04/03/18 22:00 Lipitor - PO HS PETE Diltiazem HCl 60 mg 04/02/18 14:00 04/03/18 13:51 Cardizem - PO 60 mg TID PETE Administration Docusate Sodium 100 mg 04/02/18 10:00 04/03/18 10:07 Colace - PO 100 mg DAILY PETE Administration Enoxaparin Sodium 100 mg/ 130 mg 04/03/18 22:00 Enoxaparin Sodium 30 mg SQ BID [facility] Levothyroxine Sodium 50 mcg 04/04/18 07:00 Synthroid - PO DAILY@0700 [facility] Metoprolol Tartrate 25 mg 04/03/18 22:00 Lopressor - PO BID [facility] Impression: PAD-s/p stenting DVT Saddle embolism Plan: Continued monitoring Thrombophilia work up as outpatient.
[2018-04-03] MEDS ORDERED: ENOXAPARIN 100 MG, ENOXAPARIN 30 MG SQ SCH (22:00)
[2018-04-03] MEDS: METOPROLOL TARTRATE 25 MG TABLET (FP) PO SCH (22:16)
[2018-04-03] MEDS: ATORVASTATIN CA 20 MG TABLET (FP) PO SCH (22:16)
[2018-04-04] MEDS: LEVOTHYROXINE NA 50 MCG TABLET (FP) PO SCH (06:04)
[2018-04-04] MEDS: dilTIAZem HCL 60 MG TABLET (FP) PO SCH ×3 (06:04→22:09)
[2018-04-04 07:00] LABS: PROTHROMBIN TIME (PATIENT) 37.1 SEC (9.7-13.0)
[2018-04-04 07:16] LABS: INR 3.28 (0.83-1.09)
[2018-04-04 07:34] LABS: ALBUMIN 2.6 g/dl (3.4-5.0); ANION GAP 6 (8-16); BLOOD UREA NITROGEN 13 mg/dL (7-18); CALCIUM 8.3 mg/dL (8.5-10.1); CHLORIDE 103 mmol/L (98-107); CO2 28 mmol/L (21-32); CREATININE 1.1 mg/dL (0.7-1.3); GLUCOSE,RANDOM 99 mg/dL (74-106); MAGNESIUM 2.2 mg/dL (1.8-2.4); PHOSPHOROUS 4.2 mg/dL (2.5-4.9); POTASSIUM 4.6 mmol/L (3.5-5.1); SGOT/AST 79 U/L (15-37); SGPT/ALT 99 U/L (12-78); SODIUM 137 mmol/L (136-145)
[2018-04-04 07:36] LABS: ALK PHOS 120 U/L (45-117); BILIRUBIN,TOTAL 0.5 mg/dL (0.2-1.0); TOT PROT 6.7 g/dl (6.4-8.2)
[2018-04-04 08:31] LABS: BASO % 0.7 % (0-2.0); EOS % 1.6 % (0-4.5); HEMATOCRIT 30.6 % (35.4-49); HEMOGLOBIN 10.4 GM/dL (11.7-16.9); LYMPH % 13.7 % (8-40); MCH 31.1 pg (25.7-33.7); MCHC 34.2 g/dl (32.0-35.9); MEAN CELL VOLUME 91.1 fl (80-96); MEAN PLT VOLUME 8.6 fl (7.5-11.1); MONO % 8.1 % (3.8-10.2); NEUT % 75.9 % (42.8-82.8); PLATELET COUNT 311 K/MM3 (134-434); RBC 3.36 M/mm3 (4.00-5.60); RDW 14.1 % (11.9-15.9)
--- NOTE | 2018-04-04 08:47 | PN ---
Progress Note, Physician Chief Complaint: DVT PE History of Present Illness: NAD Son at bedside Saddle PE. S/P thrombectomy for DVT Seen by Hemetology On tele monitoring-afib rate controlled Denies any SOB, chest pain or any other associated symptoms Warfarin on hold due to elevated INR Lovenox discontinued- not indicated at this time due to elevated INR Reached therapeutic INR 2-3 with 22.5 mg of warfarin in 3 days- would likely be okay with 5 mg MWF and 2.5 mg TThSaSu - Current Medication List Current Medications: Active Medications Acetaminophen (Tylenol -) 650 mg PO Q6H PRN PRN Reason: FEVER/PAIN SCALE 1-5 Aspirin (Asa -) 81 mg PO DAILY [facility] Atorvastatin Calcium (Lipitor -) 20 mg PO HS [facility] Last Admin: 04/03/18 22:16 Dose: 20 mg Cyanocobalamin (Vitamin B12 Injection -) 1,000 mcg IM DAILY [facility] Diltiazem HCl (Cardizem -) 60 mg PO TID [facility] Last Admin: 04/04/18 06:04 Dose: 60 mg Docusate Sodium (Colace -) 100 mg PO DAILY [facility] Last Admin: 04/03/18 10:07 Dose: 100 mg Levothyroxine Sodium (Synthroid -) 50 mcg PO DAILY@0700 [facility] Last Admin: 04/04/18 06:04 Dose: 50 mcg Metoprolol Tartrate (Lopressor -) 25 mg PO BID [facility] Last Admin: 04/03/18 22:16 Dose: 25 mg - Objective Vital Signs: Vital Signs Temperature 98.2 F 04/04/18 05:17 Pulse Rate 115 H 04/04/18 05:17 Respiratory Rate 19 04/04/18 05:17 Blood Pressure 112/78 04/04/18 05:17 O2 Sat by Pulse Oximetry (%) 95 04/03/18 21:00 Constitutional: Yes: Well Nourished, No Distress, Calm Cardiovascular: Yes: Regular Rate and Rhythm Respiratory: Yes: Regular Gastrointestinal: Yes: Normal Bowel Sounds, Soft, Abdomen, Obese Musculoskeletal: Yes: WNL Extremities: Yes: WNL Edema: No Peripheral Pulses WNL: Yes Neurological: Yes: Alert, Oriented Psychiatric: Yes: Alert, Oriented Labs: CBC, BMP 04/04/18 05:30 INR, PTT INR 3.28 (0.83-1.09) H* 04/04/18 05:30 Problem List - Problems (1) Atrial fibrillation Assessment/Plan: -Chronic -Was on AC outpatient with poor compliance Warfarin on hold at this time due to elevated INR Code(s): I48.91 - UNSPECIFIED ATRIAL FIBRILLATION Qualifiers: Atrial fibrillation type: unspecified Qualified Code(s): I48.91 - Unspecified atrial fibrillation (2) DVT (deep venous thrombosis) Assessment/Plan: -Provoked 2/2 to travel and recent major shoulder surgery -S/P thrombectomy -warfarin on hold at this time due to elevated INR -Daily INR checks Code(s): I82.409 - ACUTE EMBOLISM AND THOMBOS UNSP DEEP VN UNSP LOWER EXTREMITY Qualifiers: DVT location: lower extremity Affected thrombotic vein of extremity: unspecified vein of extremity Chronicity: acute Laterality: right Qualified Code(s): I82.401 - Acute embolism and thrombosis of unspecified deep veins of right lower extremity (3) Pulmonary embolism Assessment/Plan: -saddle PE seen on Chest CTA -Echo done with no signs of RHF -Seen by Pulmonary and Cardiology -Hematology on board Code(s): I26.99 - OTHER PULMONARY EMBOLISM WITHOUT ACUTE COR PULMONALE (4) Anemia Assessment/Plan: -gradual drop -Stool OB pending -Iron % and B 12 low, would replenish -Venofer + B 12 injections Code(s): D64.9 - ANEMIA, UNSPECIFIED Assessment/Plan see problem list
[2018-04-04] MEDS: ASPIRIN 81 MG CHEWABLE TABLETS PO SCH (09:29)
[2018-04-04] MEDS: CYANOCOBALAMIN (VITAMIN B-12) 1000 MCG/1 ML VIAL IM SCH (09:29)
[2018-04-04] MEDS: METOPROLOL TARTRATE 25 MG TABLET (FP) PO SCH ×2 (09:29→22:09)
[2018-04-04] MEDS: DOCUSATE SODIUM 100 MG CAPSULE (FP) PO SCH (09:29)
[2018-04-04] MEDS: POLYETHYLENE GLYCOL 3350 119 GM BTL PO SCH (09:29)
--- NOTE | 2018-04-04 09:36 | PN ---
Progress Note (short form) - Note Progress Note: cc: leg pain s: no cp, dyspnea, palps. has been walking, notes HR 100s-110s with walking and 80s-90s when resting. denies dyspnea. tele: afib 90s-110s Current Medications Current Medications Acetaminophen (Tylenol -) 650 mg PO Q6H PRN PRN Reason: FEVER/PAIN SCALE 1-5 Last Admin: 04/04/18 09:28 Dose: 650 mg Aspirin (Asa -) 81 mg PO DAILY [facility] Last Admin: 04/04/18 09:29 Dose: 81 mg Atorvastatin Calcium (Lipitor -) 20 mg PO HS [facility] Last Admin: 04/03/18 22:16 Dose: 20 mg Cyanocobalamin (Vitamin B12 Injection -) 1,000 mcg IM DAILY [facility] Last Admin: 04/04/18 09:29 Dose: 1,000 mcg Diltiazem HCl (Cardizem -) 60 mg PO TID [facility] Last Admin: 04/04/18 06:04 Dose: 60 mg Docusate Sodium (Colace -) 100 mg PO DAILY [facility] Last Admin: 04/04/18 09:29 Dose: 100 mg Iron Sucrose 200 mg/ Sodium (Chloride) 250 mls @ 250 mls/hr IVPB DAILY [facility] Stop: 04/05/18 10:59 Levothyroxine Sodium (Synthroid -) 50 mcg PO DAILY@0700 [facility] Last Admin: 04/04/18 06:04 Dose: 50 mcg Metoprolol Tartrate (Lopressor -) 25 mg PO BID [facility] Last Admin: 04/04/18 09:29 Dose: 25 mg Polyethylene Glycol (Miralax (For Daily Use) -) 17 gm PO DAILY [facility] Last Admin: 04/04/18 09:29 Dose: 17 grams - Objective Vital Signs Period Temp Pulse Resp BP Sys/Cooper Pulse Ox Last 24 Hr 97.5 F-98.6 F 78-117 19-22 93-124/54-87 95 Constitutional: Yes: No Distress, Calm, Obese Cardiovascular: Yes: Regular Rate and Rhythm, S1, S2. No: JVD, Gallop, Murmur Respiratory: Yes: Regular, CTA Bilaterally. No: Accessory Muscle Use, Rales Extremities: No: Cold Edema: 2+ right foot, 1+ left foot Neurological: Yes: Alert, Oriented Psychiatric: No: Agitated Assessment/Plan Echo 03/30/18 here: TDS, nl LVEF, RV appears mildly dilated, cannot assess function Echo 03/29/18 here: tds, nl lvef, rv tds, kenai, no sig valve path Echo 02/12: afib; TDS; nl LV size and LVSF (EF at least 55%). RV tds: ? mild dilation, can't assess RVSF. ? nl LA size. valves WNL. mildly dilated ao root ( 3.9 cm) ECG: afib, no path q's; NSTWAs septal leads cta chest: large saddle pe a/p: persistent AF: - had not been on AC at home (CHADS-VASC 0 (no known h/o HTN)), poor follow up - s/p open thrombectomy of R iliac, SFA, deep profunda, and angiogram likely related to atheroembolic event from afib - remains rapid here, metopr up to 100 bid during admission, digoxin 0.25 added without improved rates and low BP noted - 04/02 metoprolol decreased from 100 BID to 50 mg BID with diltiazem 60 mb TID started and digoxin dc - 04/03 had low bps, rate control is improved. decreased metoprolol to 25 mg BID , cardizem 60 mg TID continued - 04/04 bp improving, rates 80s-90s at rest, 100s-1110s with walking, continue cardizem and metoprolol - low likelihood to respond to DCCV attempt given longstanding persistent AF for > 2 yrs now. consider ablation evaluation as outpt DVT/PE: -saddle PE seen on cta, pt has no sxs or signs of RHF. Due to pt body habitus two echos were tds for rv strain. Echo images reviewed by our team--cannot definitively see evidence of RV failure/strain, no signif RV dilation on CT chest per d/w dr zabala. Clinically he has no signs RHF. IR thrombolysis deferred per consensus with I.R., critical care, and our team given risks likely >> benefits -also with distal SFV and popliteal vein thrombus on duplex, recent shoulder surgery -heme following. rec outpt hypercoag eval, malignancy rule-out +/- family member screening as indicated - will do echo with Definity microbubble contrast as outpatient, for more accurate assessment of both the LV and RV function (not available here) edema - improving since surgery per patient, weight decreasing as well hypotension: -sbp 90s. suspect med effect of high dose metoprolol, which has been decreased and diltiazem started -no signs sepsis or cardiogenic shock clinically -no signs RV failure clinically, with prohibitively poor echo images as above ( no signs RV strain based on CT scan size per reveiw with dr zabala) -observe clinically while adjust AVN blockers as above hypothyroidism: - on synthroid, manage per primary team
[2018-04-04] MEDS: IRON SUCROSE INJECTION 200 MG in SODIUM CHLORIDE 240 ML IVPB SCH ×2 (10:36→12:59)
--- NOTE | 2018-04-04 11:08 | PN ---
Physical Exam: SUBJECTIVE: Patient seen and examined Feels good Walking around Denies sob. OBJECTIVE: Vital Signs Period Temp Pulse Resp BP Sys/Cooper Pulse Ox Last 24 Hr 97.5 F-98.6 F 78-117 18-22 93-124/54-87 95-97 GENERAL: The patient is awake, alert, and fully oriented, in no acute distress. HEAD: Normal with no signs of trauma. ENT: moist mucous membranes. NECK: Trachea midline, full range of motion, supple. LUNGS: Breath sounds equal, clear to auscultation bilaterally, no wheezes, no crackles, no accessory muscle use. HEART: irregular, s1s2 normal ABDOMEN: Soft, nontender, nondistended, normoactive bowel sounds, no guarding, no rebound, EXTREMITIES: 2+ pulses, warm, edema + PSYCH: Normal mood, SKIN: Warm, dry, Laboratory Results - last 24 hr 04/04/18 04/04/18 04/04/18 05:30 05:30 05:30 WBC 8.0 RBC 3.36 L Hgb 10.4 L Hct 30.6 L MCV 91.1 MCH 31.1 MCHC 34.2 RDW 14.1 Plt Count 311 D MPV 8.6 Absolute Neuts (auto) 6.0 Neutrophils % 75.9 Lymphocytes % 13.7 Monocytes % 8.1 Eosinophils % 1.6 Basophils % 0.7 Nucleated RBC % 0 PT with INR 37.10 H INR 3.28 H* Sodium 137 Potassium 4.6 Chloride 103 Carbon Dioxide 28 Anion Gap 6 L BUN 13 Creatinine 1.1 Creat Clearance w eGFR > 60 Random Glucose 99 Calcium 8.3 L Phosphorus 4.2 Magnesium 2.2 Total Bilirubin 0.5 AST 79 H ALT 99 H Alkaline Phosphatase 120 H Total Protein 6.7 Albumin 2.6 L Active Medications Generic Name Dose Route Start Last Admin Trade Name Freq PRN Reason Stop Dose Admin Acetaminophen 650 mg 04/03/18 12:52 04/04/18 09:28 Tylenol - PO 650 mg Q6H PRN Administration FEVER/PAIN SCALE 1-5 Aspirin 81 mg 04/04/18 10:00 04/04/18 09:29 Asa - PO 81 mg DAILY PETE Administration Atorvastatin Calcium 20 mg 04/03/18 22:00 04/03/18 22:16 Lipitor - PO 20 mg HS PETE Administration Cyanocobalamin 1,000 mcg 04/04/18 10:00 04/04/18 09:29 Vitamin B12 Injection - IM 1,000 mcg DAILY PETE Administration Diltiazem HCl 60 mg 04/02/18 14:00 04/04/18 06:04 Cardizem - PO 60 mg TID PETE Administration Docusate Sodium 100 mg 04/02/18 10:00 04/04/18 09:29 Colace - PO 100 mg DAILY PETE Administration Iron Sucrose 200 mg/ Sodium 250 mls @ 250 mls/hr 04/04/18 08:49 04/04/18 10: 36 Chloride IVPB 04/05/18 10:59 250 mls/hr DAILY PETE Administration Levothyroxine Sodium 50 mcg 04/04/18 07:00 04/04/18 06:04 Synthroid - PO 50 mcg DAILY@0700 PETE Administration Metoprolol Tartrate 25 mg 04/03/18 22:00 04/04/18 09:29 Lopressor - PO 25 mg BID PETE Administration Polyethylene Glycol 17 gm 04/04/18 10:00 04/04/18 09:29 Miralax (For Daily Use) - PO 17 grams DAILY PETE Administration ASSESSMENT/PLAN: PAD s/p stenting DVT Saddle embolism. Monitor INR. ( INR 3.28) Thrombophelia work up as outpatient Visit type - Emergency Visit Emergency Visit: Yes ED Registration Date: 03/26/18 Care time: The patient presented to the Emergency Department on the above date and was hospitalized for further evaluation of their emergent condition. - New Patient This patient is new to me today: No - Critical Care Critical Care patient: No
--- NOTE | 2018-04-04 13:44 | PN ---
Progress Note (short form) - Note Progress Note: Overall feels better. No shortness of breath, chest pain or palpitations. Heart rates better controlled. OBJECTIVE: Intake & Output 04/01/18 04/02/18 04/03/18 04/04/18 23:59 23:59 23:59 23:59 Intake Total 901 074 1595 600 Output Total 333 413 4988 Balance -700 -200 -390 600 Weight 160 lb 4.8 oz 296 lb 15.402 oz 296 lb 11.2 oz Last Vital Signs Temp Pulse Resp BP Pulse Ox 98.1 F 96 H 18 116/60 97 04/04/18 09:00 04/04/18 09:00 04/04/18 09:00 04/04/18 09:00 04/04/18 09:00 Active Medications Acetaminophen (Tylenol -) 650 mg PO Q6H PRN PRN Reason: FEVER/PAIN SCALE 1-5 Last Admin: 04/04/18 09:28 Dose: 650 mg Aspirin (Asa -) 81 mg PO DAILY [facility] Last Admin: 04/04/18 09:29 Dose: 81 mg Atorvastatin Calcium (Lipitor -) 20 mg PO [facility] Last Admin: 04/03/18 22:16 Dose: 20 mg Cyanocobalamin (Vitamin B12 Injection -) 1,000 mcg IM DAILY [facility] Last Admin: 04/04/18 09:29 Dose: 1,000 mcg Diltiazem HCl (Cardizem -) 60 mg PO TID [facility] Last Admin: 04/04/18 12:59 Dose: 60 mg Docusate Sodium (Colace -) 100 mg PO DAILY [facility] Last Admin: 04/04/18 09:29 Dose: 100 mg Iron Sucrose 200 mg/ Sodium (Chloride) 250 mls @ 250 mls/hr IVPB DAILY [facility] Stop: 04/05/18 10:59 Last Admin: 04/04/18 12:59 Dose: Not Given Levothyroxine Sodium (Synthroid -) 50 mcg PO DAILY@0700 [facility] Last Admin: 04/04/18 06:04 Dose: 50 mcg Metoprolol Tartrate (Lopressor -) 25 mg PO BID [facility] Last Admin: 04/04/18 09:29 Dose: 25 mg Polyethylene Glycol (Miralax (For Daily Use) -) 17 gm PO DAILY [facility] Last Admin: 04/04/18 09:29 Dose: 17 grams Gen: NAD at rest Heart: Irregular Lung: decreased breath sounds at the bases Abd: soft, nontender Ext: trace edema Laboratory Results - last 24 hr 04/04/18 04/04/18 04/04/18 05:30 05:30 05:30 WBC 8.0 RBC 3.36 L Hgb 10.4 L Hct 30.6 L MCV 91.1 MCH 31.1 MCHC 34.2 RDW 14.1 Plt Count 311 D MPV 8.6 Absolute Neuts (auto) 6.0 Neutrophils % 75.9 Lymphocytes % 13.7 Monocytes % 8.1 Eosinophils % 1.6 Basophils % 0.7 Nucleated RBC % 0 PT with INR 37.10 H INR 3.28 H* Sodium 137 Potassium 4.6 Chloride 103 Carbon Dioxide 28 Anion Gap 6 L BUN 13 Creatinine 1.1 Creat Clearance w eGFR > 60 Random Glucose 99 Calcium 8.3 L Phosphorus 4.2 Magnesium 2.2 Total Bilirubin 0.5 AST 79 H ALT 99 H Alkaline Phosphatase 120 H Total Protein 6.7 Albumin 2.6 L ASSESSMENT AND PLAN: PAD/R iliac/SFA/deep profunda thrombus s/o open thrombectomy Acute Pulmonary Emboli RLE DVT Atrial Fibrillation with RVR Hypothyroidism - Coumadin based on INR values, Range 2-3 - rate control, Beta erlinda and CCB - O2 to keep SpO2 >90% - No Pulmonary contraindication for D/C planning Dr Horta
[2018-04-04] MEDS: ATORVASTATIN CA 20 MG TABLET (FP) PO SCH (22:09)
[2018-04-05] MEDS: dilTIAZem HCL 60 MG TABLET (FP) PO SCH ×3 (06:33→21:30)
[2018-04-05] MEDS: LEVOTHYROXINE NA 50 MCG TABLET (FP) PO SCH (06:34)
[2018-04-05 06:50] LABS: INR 2.58 (0.83-1.09); PROTHROMBIN TIME (PATIENT) 29.2 SEC (9.7-13.0)
[2018-04-05 06:59] LABS: ALBUMIN 2.5 g/dl (3.4-5.0); BILIRUBIN,DIRECT 0.2 mg/dL (0.0-0.2); BILIRUBIN,TOTAL 0.5 mg/dL (0.2-1.0); TOT PROT 6.6 g/dl (6.4-8.2)
--- NOTE | 2018-04-05 07:53 | PN ---
Progress Note (short form) - Note Progress Note: Patient seen and examined Lying in bed with resting tachycardia Minimal ambulation in room with fluttering of heart at end of ambulation Denies chest pains Last Vital Signs Temp Pulse Resp BP Pulse Ox 98.6 F 101 H 17 105/68 96 04/05/18 06:00 04/05/18 06:00 04/05/18 06:00 04/05/18 06:00 04/04/18 21:00 HEENT: ANAHI, EOM Intact Oropharynx: No thrush, No mucosit Cor-- irregular Lungs: Clear to P&A Abd: Soft, Normal bowel sounds, No organomegaly Ext:No significant edema Skin: No rashes, Integument intact CBC, BMP 04/04/18 05:30 04/04/18 05:30 Current Medications Generic Name Dose Route Start Last Admin Trade Name Freq PRN Reason Stop Dose Admin Acetaminophen 650 mg 04/03/18 12:52 04/04/18 09:28 Tylenol - PO 650 mg Q6H PRN Administration FEVER/PAIN SCALE 1-5 Aspirin 81 mg 04/04/18 10:00 04/04/18 09:29 Asa - PO 81 mg DAILY PETE Administration Atorvastatin Calcium 20 mg 04/03/18 22:00 04/04/18 22:09 Lipitor - PO 20 mg HS PETE Administration Cyanocobalamin 1,000 mcg 04/04/18 10:00 04/04/18 09:29 Vitamin B12 Injection - IM 1,000 mcg DAILY [facility]E Administration Diltiazem HCl 60 mg 04/02/18 14:00 04/05/18 06:33 Cardizem - PO 60 mg TID PETE Administration Docusate Sodium 100 mg 04/02/18 10:00 04/04/18 09:29 Colace - PO 100 mg DAILY [facility]E Administration Iron Sucrose 200 mg/ Sodium 250 mls @ 250 mls/hr 04/04/18 08:49 04/04/18 12: 59 Chloride IVPB 04/05/18 10:59 Not Given DAILY PETE Levothyroxine Sodium 50 mcg 04/04/18 07:00 04/05/18 06:34 Synthroid - PO 50 mcg DAILY@0700 PETE Administration Metoprolol Tartrate 25 mg 04/03/18 22:00 04/04/18 22:09 Lopressor - PO 25 mg BID PETE Administration Polyethylene Glycol 17 gm 04/04/18 10:00 04/04/18 09:29 Miralax (For Daily Use) - PO 17 grams DAILY [facility]E Administration Impression: S/P stent for PAD DVT Saddle embolism A/C- bridging now with therapeutic INR Anemia Tachycardia Consider thrombophilia workmup as out patient Rate control P>t> with ambulation
[2018-04-05] MEDS: DOCUSATE SODIUM 100 MG CAPSULE (FP) PO SCH (09:46)
[2018-04-05] MEDS: METOPROLOL TARTRATE 25 MG TABLET (FP) PO SCH ×2 (09:46→21:30)
[2018-04-05] MEDS: ASPIRIN 81 MG CHEWABLE TABLETS PO SCH (09:46)
[2018-04-05] MEDS: POLYETHYLENE GLYCOL 3350 119 GM BTL PO SCH (09:46)
[2018-04-05] MEDS: CYANOCOBALAMIN (VITAMIN B-12) 1000 MCG/1 ML VIAL IM SCH (09:47)
[2018-04-05] MEDS: IRON SUCROSE INJECTION 200 MG in SODIUM CHLORIDE 240 ML IVPB SCH (10:43)
--- NOTE | 2018-04-05 11:03 | PN ---
Progress Note, Physician Chief Complaint: DVT PE History of Present Illness: NAD Son at bedside Saddle PE. S/P thrombectomy for DVT Seen by Hemetology On tele monitoring-afib rate controlled Denies any SOB, chest pain or any other associated symptoms Warfarin on hold due to elevated INR Lovenox discontinued- not indicated at this time due to elevated INR Reached therapeutic INR 2-3 with 22.5 mg of warfarin in 3 days- would likely be okay with 5 mg MWF and 2.5 mg TThSaSu - Current Medication List Current Medications: Active Medications Acetaminophen (Tylenol -) 650 mg PO Q6H PRN PRN Reason: FEVER/PAIN SCALE 1-5 Last Admin: 04/04/18 09:28 Dose: 650 mg Aspirin (Asa -) 81 mg PO DAILY [facility] Last Admin: 04/05/18 09:46 Dose: 81 mg Atorvastatin Calcium (Lipitor -) 20 mg PO HS [facility] Last Admin: 04/04/18 22:09 Dose: 20 mg Cyanocobalamin (Vitamin B12 Injection -) 1,000 mcg IM DAILY [facility] Last Admin: 04/05/18 09:47 Dose: 1,000 mcg Diltiazem HCl (Cardizem -) 60 mg PO TID [facility] Last Admin: 04/05/18 06:33 Dose: 60 mg Docusate Sodium (Colace -) 100 mg PO DAILY [facility] Last Admin: 04/05/18 09:46 Dose: 100 mg Iron Sucrose 200 mg/ Sodium (Chloride) 250 mls @ 250 mls/hr IVPB DAILY [facility] Stop: 04/06/18 10:59 Last Admin: 04/05/18 10:43 Dose: 250 mls/hr Levothyroxine Sodium (Synthroid -) 50 mcg PO DAILY@0700 [facility] Last Admin: 04/05/18 06:34 Dose: 50 mcg Metoprolol Tartrate (Lopressor -) 25 mg PO BID [facility] Last Admin: 04/05/18 09:46 Dose: 25 mg Polyethylene Glycol (Miralax (For Daily Use) -) 17 gm PO DAILY [facility] Last Admin: 04/05/18 09:46 Dose: 17 grams Warfarin Sodium (Coumadin -) 2.5 mg PO DAILY@1800 [facility] - Objective Vital Signs: Vital Signs Temperature 98.6 F 04/05/18 06:00 Pulse Rate 101 H 04/05/18 06:00 Respiratory Rate 17 04/05/18 06:00 Blood Pressure 105/68 04/05/18 06:00 O2 Sat by Pulse Oximetry (%) 96 04/04/18 21:00 Constitutional: Yes: Well Nourished, No Distress, Calm Cardiovascular: Yes: Pulse Irregular Respiratory: Yes: Regular Gastrointestinal: Yes: Normal Bowel Sounds, Soft, Abdomen, Obese Musculoskeletal: Yes: WNL Extremities: Yes: WNL Edema: No Peripheral Pulses WNL: Yes Neurological: Yes: Alert, Oriented Psychiatric: Yes: Alert, Oriented Labs: CBC, BMP 04/04/18 05:30 04/04/18 05:30 INR, PTT INR 2.58 (0.83-1.09) H 04/05/18 05:30 Problem List - Problems (1) Atrial fibrillation Assessment/Plan: -Chronic -HR went up to 150's this AM while pt was walking in the hallway -Diltiazem increased to 90 mg TID -Cardiology on board -Restart Warfarin @ MWF 5 mg and all other days 2.5 mg -daily INR's Code(s): I48.91 - UNSPECIFIED ATRIAL FIBRILLATION Qualifiers: Atrial fibrillation type: unspecified Qualified Code(s): I48.91 - Unspecified atrial fibrillation (2) DVT (deep venous thrombosis) Assessment/Plan: -Provoked 2/2 to travel and recent major shoulder surgery -S/P thrombectomy -restart warfarin -Daily INR checks Code(s): I82.409 - ACUTE EMBOLISM AND THOMBOS UNSP DEEP VN UNSP LOWER EXTREMITY Qualifiers: DVT location: lower extremity Affected thrombotic vein of extremity: unspecified vein of extremity Chronicity: acute Laterality: right Qualified Code(s): I82.401 - Acute embolism and thrombosis of unspecified deep veins of right lower extremity (3) Pulmonary embolism Assessment/Plan: -saddle PE seen on Chest CTA -Echo done with no signs of RHF -Seen by Pulmonary and Cardiology -Hematology on board Code(s): I26.99 - OTHER PULMONARY EMBOLISM WITHOUT ACUTE COR PULMONALE (4) Anemia Assessment/Plan: -gradual drop -Stool OB pending -Iron % and B 12 low, would replenish -Venofer + B 12 injections Code(s): D64.9 - ANEMIA, UNSPECIFIED Assessment/Plan see problem list Dispo: possible d/c in AM if tele is stable
--- NOTE | 2018-04-05 11:48 | PN ---
Progress Note (short form) - Note Progress Note: Overall feels better. No shortness of breath, chest pain or palpitations. OBJECTIVE: Intake & Output 04/02/18 04/03/18 04/04/18 04/05/18 23:59 23:59 23:59 23:59 Intake Total 500 1310 1680 600 Output Total 700 1700 Balance -200 -390 1680 600 Weight 296 lb 15.402 oz 296 lb 11.2 oz 303 lb 12.8 oz Last Vital Signs Temp Pulse Resp BP Pulse Ox 98.6 F 101 H 17 105/68 96 04/05/18 06:00 04/05/18 06:00 04/05/18 06:00 04/05/18 06:00 04/04/18 21:00 Active Medications Acetaminophen (Tylenol -) 650 mg PO Q6H PRN PRN Reason: FEVER/PAIN SCALE 1-5 Last Admin: 04/04/18 09:28 Dose: 650 mg Aspirin (Asa -) [address] [facility] Last Admin: 04/05/18 09:46 Dose: 81 mg Atorvastatin Calcium (Lipitor -) [address] [facility] Last Admin: 04/04/18 22:09 Dose: 20 mg Cyanocobalamin (Vitamin B12 Injection -) 1,[address] [facility] Last Admin: 04/05/18 09:47 Dose: 1,000 mcg Diltiazem HCl (Cardizem -) [address] [facility] Last Admin: 04/05/18 06:33 Dose: 60 mg Docusate Sodium (Colace -) [address] [facility] Last Admin: 04/05/18 09:46 Dose: 100 mg Iron Sucrose 200 mg/ Sodium (Chloride) 250 mls @ 250 mls/hr IVPB DAILY [facility] Stop: 04/06/18 10:59 Last Admin: 04/05/18 10:43 Dose: 250 mls/hr Levothyroxine Sodium (Synthroid -) 50 mcg PO DAILY@0700 [facility] Last Admin: 04/05/18 06:34 Dose: 50 mcg Metoprolol Tartrate (Lopressor -) [address] [facility] Last Admin: 04/05/18 09:46 Dose: 25 mg Polyethylene Glycol (Miralax (For Daily Use) -) [address] [facility] Last Admin: 04/05/18 09:46 Dose: 17 grams Warfarin Sodium (Coumadin -) 2.5 mg PO SuTuThSa@1800 [facility] Warfarin Sodium (Coumadin -) 5 mg PO MoWeFr@1800 [facility] Gen: NAD at rest Heart: Irregular Lung: decreased breath sounds at the bases Abd: soft, nontender Ext: trace edema Laboratory Results - last 24 hr 04/05/18 04/05/18 05:30 05:30 PT with INR 29.20 H INR 2.58 H Total Bilirubin 0.5 Direct Bilirubin 0.2 AST 60 H D ALT 84 H Alkaline Phosphatase 106 D Total Protein 6.6 Albumin 2.5 L ASSESSMENT AND PLAN: PAD/R iliac/SFA/deep profunda thrombus S/P Open thrombectomy Acute Pulmonary Emboli RLE DVT Atrial Fibrillation with RVR Hypothyroidism High clinical suspicion for OSAS - Coumadin based on INR values, Range 2-3 - rate control, Beta erlinda and CCB - O2 to keep SpO2 >90% - Will need formal sleep workup for OSAS - No Pulmonary contraindication for D/C planning Dr Horta
--- NOTE | 2018-04-05 12:09 | PN ---
Progress Note (short form) - Note Progress Note: s: no sob cp dizzy palps. tele: afib, rate controlled at rest, rvr with exertion o: Vital Signs Period Temp Pulse Resp BP Sys/Cooper Pulse Ox Last 24 Hr 98.2 F-98.8 F 88-101 17-18 105-126/60-73 96 Constitutional: Yes: No Distress, Obese Eyes: No: Sclera Icterus HENT: No: Nasal Congestion Respiratory: Yes: CTA Bilaterally. No: Accessory Muscle Use, Rales, Wheezes Gastrointestinal: Yes: Normal Bowel Sounds. No: Distention, Hepatomegaly, Palpable Mass, Tenderness Cardiovascular: Yes: Regular Rate and Rhythm JVD: No Heart Sounds: Yes: S1, S2. No: Gallop Murmur: No: Systolic Murmur, Diastolic Murmur Extremities: Yes: Cold (R). No: Cool, Cyanosis Edema: No Peripheral Pulses: 0 Right Dorsalis Pedis, 2+ Left Carotid, 2+ Right Carotid, 2 + Left Doralis Pedis Integumentary: No: Jaundice diaphoresis Neurological: Yes: Alert, Oriented (x3) Psychiatric: No: Agitated Current Medications Generic Name Dose Route Start Last Admin Trade Name Freq PRN Reason Stop Dose Admin Acetaminophen 650 mg 04/03/18 12:52 04/04/18 09:28 Tylenol - PO 650 mg Q6H PRN Administration FEVER/PAIN SCALE 1-5 Aspirin 81 mg 04/04/18 10:00 04/05/18 09:46 Asa - PO 81 mg DAILY [facility] Administration Atorvastatin Calcium 20 mg 04/03/18 22:00 04/04/18 22:09 Lipitor - PO 20 mg HS [facility] Administration Cyanocobalamin 1,000 mcg 04/04/18 10:00 04/05/18 09:47 Vitamin B12 Injection - IM 1,000 mcg DAILY [facility] Administration Diltiazem HCl 90 mg 04/05/18 12:07 Cardizem - PO TID [facility] Docusate Sodium 100 mg 04/02/18 10:00 04/05/18 09:46 Colace - PO 100 mg DAILY [facility] Administration Iron Sucrose 200 mg/ Sodium 250 mls @ 250 mls/hr 04/05/18 10:00 04/05/18 10: 43 Chloride IVPB 04/06/18 10:59 250 mls/hr DAILY [facility] Administration Levothyroxine Sodium 50 mcg 04/04/18 07:00 04/05/18 06:34 Synthroid - PO 50 mcg DAILY@0700 [facility] Administration Metoprolol Tartrate 25 mg 04/03/18 22:00 04/05/18 09:46 Lopressor - PO 25 mg BID [facility] Administration Polyethylene Glycol 17 gm 04/04/18 10:00 04/05/18 09:46 Miralax (For Daily Use) - PO 17 grams DAILY [facility] Administration Warfarin Sodium 2.5 mg 04/05/18 18:00 Coumadin - PO SuTuThSa@1800 [facility] Warfarin Sodium 5 mg 04/06/18 18:00 Coumadin - PO MoWeFr@1800 [facility] CBC, BMP 04/04/18 05:30 04/04/18 05:30 Echo 03/30/18 here: TDS, nl LVEF, RV appears mildly dilated, cannot assess function Echo 03/29/18 here: tds, nl lvef, rv tds, kenia, no sig valve path Echo 02/12: afib; TDS; nl LV size and LVSF (EF at least 55%). RV tds: ? mild dilation, can't assess RVSF. ? nl LA size. valves WNL. mildly dilated ao root ( 3.9 cm) ECG: afib, no path q's; NSTWAs septal leads cta chest: large saddle pe a/p: persistent AF: - had not been on AC at home (CHADS-VASC 0 (no known h/o HTN)), poor follow up - s/p open thrombectomy of R iliac, SFA, deep profunda, and angiogram likely related to atheroembolic event from afib - remains rapid here, metopr up to 100 bid during admission, digoxin 0.25 added without improved rates and low BP noted - 04/02 metoprolol decreased from 100 BID to 50 mg BID with diltiazem 60 mb TID started and digoxin dc - 04/03 had low bps, rate control is improved. decreased metoprolol to 25 mg BID , cardizem 60 mg TID continued - 04/04 bp improving, rates 80s-90s at rest, 100s-1110s with walking, continue cardizem and metoprolol -04/05: some rvr with exertion, will increase dilt to 90 tid. cont tele. - low likelihood to respond to DCCV attempt given longstanding persistent AF for > 2 yrs now. consider ablation evaluation as outpt DVT/PE: -saddle PE seen on cta, pt has no sxs or signs of RHF. Due to pt body habitus two echos were tds for rv strain. Echo images reviewed by our team--cannot definitively see evidence of RV failure/strain, no signif RV dilation on CT chest per d/w dr zabala. Clinically he has no signs RHF. IR thrombolysis deferred per consensus with I.R., critical care, and our team given risks likely >> benefits -also with distal SFV and popliteal vein thrombus on duplex, recent shoulder surgery -heme following. rec outpt hypercoag eval, malignancy rule-out +/- family member screening as indicated - will do echo with Definity microbubble contrast as outpatient, for more accurate assessment of both the LV and RV function (not available here) edema - improving since surgery per patient, weight decreasing as well hypotension: -sbp 90s. suspect med effect of high dose metoprolol, which has been decreased and diltiazem started -no signs sepsis or cardiogenic shock clinically -no signs RV failure clinically, with prohibitively poor echo images as above ( no signs RV strain based on CT scan size per reveiw with dr zabala) -observe clinically while adjust AVN blockers as above hypothyroidism: - on synthroid, manage per primary team
--- NOTE | 2018-04-05 12:55 | CON.GI ---
Consult Consult Specialty:: GI Reason for Consultation:: elevate transaminases - History of Present Illness History of Present Illness: Chart reviewed. Events noted. A 62M was noted to have mildly elevated AST and ALT. Liver enzymes were normal on admission. Pt reports no prior history of liver disease, viral hepatitis, or autoimmune disorders. No prior history jaundice. Has blood work with his PCP twice a year and never been told he had liver enzymes abnormalities. Has tattoos (done in 70s), no other risk factors for viral hepatitis reported. Denies abdomina pain, nausea, postprandial symptoms. - History Source History Provided By: Patient, Medical Record - Alcohol/Substance Use Hx Alcohol Use: Yes (SOCIAL) - Smoking History Smoking history: Current some day smoker Have you smoked in the past 12 months: Yes Home Medications - Allergies Allergies/Adverse Reactions: Allergies Allergy/AdvReac Type Severity Reaction Status Date / Time No Known Allergies Allergy Verified 03/26/18 08:49 - Home Medications Home Medications: Ambulatory Orders Atorvastatin Ca [Lipitor] 20 mg PO DAILY 12/16/15 Levothyroxine [Synthroid -] 50 mcg PO DAILY 12/16/15 Aspirin 81 mg PO ASDIR 03/26/18 Metoprolol Tartrate [Lopressor -] 50 mg PO BID 03/26/18 Family Disease History - Family Disease History Family History: Unremarkable Review of Systems Findings/Remarks: as per HPI, ED, H&P Physical Exam-GI Vital Signs: Vital Signs Temperature 98.6 F 04/05/18 06:00 Pulse Rate 101 H 04/05/18 06:00 Respiratory Rate 17 04/05/18 06:00 Blood Pressure 105/68 04/05/18 06:00 O2 Sat by Pulse Oximetry (%) 96 04/04/18 21:00 Constitutional: Yes: Well Nourished, No Distress, Calm Eyes: Yes: Conjunctiva Clear HENT: Yes: Atraumatic Neck: Yes: Supple Cardiovascular: Yes: Regular Rate and Rhythm Respiratory: Yes: Regular Gastrointestinal Inspection: No: Ascites, Distention ...Auscultate: Yes: Normoactive Bowel Sounds ...Palpate: Yes: Soft. No: Firm/Rigid, Guarding, Mass, Tenderness, Tenderness, Epigastium, Tenderness, Rebound Neurological: Yes: Alert, Oriented. No: Asterixis, Confusion, Lethargy Labs: CBC, BMP 04/04/18 05:30 04/04/18 05:30 INR, PTT INR 2.58 (0.83-1.09) H 04/05/18 05:30 Laboratory Last Values WBC 8.0 K/mm3 (4.0-10.0) 04/04/18 05:30 RBC 3.36 M/mm3 (4.00-5.60) L 04/04/18 05:30 Hgb 10.4 GM/dL (11.7-16.9) L 04/04/18 05:30 Hct 30.6 % (35.4-49) L 04/04/18 05:30 MCV 91.1 fl (80-96) 04/04/18 05:30 MCH 31.1 pg (25.7-33.7) 04/04/18 05:30 MCHC 34.2 g/dl (32.0-35.9) 04/04/18 05:30 RDW 14.1 % (11.9-15.9) 04/04/18 05:30 Plt Count 311 K/MM3 (134-434) D 04/04/18 05:30 MPV 8.6 fl (7.5-11.1) 04/04/18 05:30 Absolute Neuts (auto) 6.0 # 04/04/18 05:30 Neutrophils % 75.9 % (42.8-82.8) 04/04/18 05:30 Lymphocytes % 13.7 % (8-40) 04/04/18 05:30 Monocytes % 8.1 % (3.8-10.2) 04/04/18 05:30 Eosinophils % 1.6 % (0-4.5) 04/04/18 05:30 Basophils % 0.7 % (0-2.0) 04/04/18 05:30 Nucleated RBC % 0 % (0-0) 04/04/18 05:30 PT with INR 29.20 SEC (9.7-13.0) H 04/05/18 05:30 INR 2.58 (0.83-1.09) H 04/05/18 05:30 PTT (Actin FS) 49.7 SECONDS (25.2-36.5) H 03/30/18 13:15 Sodium 137 mmol/L (136-145) 04/04/18 05:30 Potassium 4.6 mmol/L (3.5-5.1) 04/04/18 05:30 Chloride 103 mmol/L (98-107) 04/04/18 05:30 Carbon Dioxide 28 mmol/L (21-32) 04/04/18 05:30 Anion Gap 6 (8-16) L 04/04/18 05:30 BUN 13 mg/dL (7-18) 04/04/18 05:30 Creatinine 1.1 mg/dL (0.7-1.3) 04/04/18 05:30 Creat Clearance w eGFR > 60 (>60) 04/04/18 05:30 Random Glucose 99 mg/dL (74-106) 04/04/18 05:30 Hemoglobin A1c % 5.1 % (4.8-6.0) 03/31/18 05:30 Calcium 8.3 mg/dL (8.5-10.1) L 04/04/18 05:30 Phosphorus 4.2 mg/dL (2.5-4.9) 04/04/18 05:30 Magnesium 2.2 mg/dL (1.8-2.4) 04/04/18 05:30 Iron 16 ug/dL (38-169) L 03/31/18 05:30 TIBC 210 ug/dL (250-450) L 03/31/18 05:30 Iron Saturation 8 % (15-55) L 03/31/18 05:30 Ferritin 354.3 ng/ml (16.4-293.9) H 03/31/18 05:30 Total Bilirubin 0.5 mg/dL (0.2-1.0) 04/05/18 05:30 Direct Bilirubin 0.2 mg/dL (0.0-0.2) 04/05/18 05:30 AST 60 U/L (15-37) H D 04/05/18 05:30 ALT 84 U/L (12-78) H 04/05/18 05:30 Alkaline Phosphatase 106 U/L (45-117) D 04/05/18 05:30 Creatine Kinase 57 IU/L (39-308) 03/29/18 05:30 Troponin I < 0.02 ng/ml (0.00-0.05) 03/29/18 05:30 B-Natriuretic Peptide 1573.20 pg/ml (5-125) H 03/30/18 05:30 Total Protein 6.6 g/dl (6.4-8.2) 04/05/18 05:30 Albumin 2.5 g/dl (3.4-5.0) L 04/05/18 05:30 Triglycerides 79 mg/dL (35-160) 03/31/18 05:30 Cholesterol 120 mg/dL (50-200) 03/31/18 05:30 Total LDL Cholesterol 77 mg/dL (5-100) 03/31/18 05:30 HDL Cholesterol 33 mg/dL (40-60) L 03/31/18 05:30 Vitamin B12 299 pg/ml (180-914) 03/31/18 05:30 TSH 1.30 uIU/ml (0.358-3.74) 03/26/18 11:20 Blood Type A POSITIVE 03/26/18 11:20 Antibody Screen Negative 03/26/18 11:20 Crossmatch See Detail 03/26/18 11:20 Problem List - Problems (1) Transaminitis Code(s): R74.0 - NONSPEC ELEV OF LEVELS OF TRANSAMNS & LACTIC ACID DEHYDRGNSE Assessment/Plan A 62M with mild transaminitis while in the hospital. Normal ALP, bilirubin. No prior history of liver disease. Has risk factors for viral hepatitis. Suspect iatrogenic cause of mild transaminitis, which appears to be improving. may also have underlying fatty liver/MORAN. Recommend obtaining US of the liver and screening for viral hepatitis (can be done as OP). Repeat liver enzymes in 1 week. Discussed with the patient.
--- NOTE | 2018-04-05 17:10 | PN ---
Physical Exam: SUBJECTIVE: Patient seen and examined fells good no chest pain, sob OBJECTIVE: Vital Signs Period Temp Pulse Resp BP Sys/Cooper Pulse Ox Last 24 Hr 98.5 F-98.8 F 88-101 17-20 105-118/63-73 96-96 GENERAL: The patient is awake, alert, and fully oriented, in no acute distress. HEAD: Normal with no signs of trauma. ENT: moist mucous membranes. NECK: Trachea midline, full range of motion, supple. LUNGS: Breath sounds equal, clear to auscultation bilaterally, no wheezes, no crackles, no accessory muscle use. HEART: irregular, s1s2 normal ABDOMEN: Soft, nontender, nondistended, normoactive bowel sounds, no guarding, no rebound, EXTREMITIES: 2+ pulses, warm, edema + PSYCH: Normal mood, SKIN: Warm, dry, Laboratory Results - last 24 hr 04/05/18 04/05/18 05:30 05:30 PT with INR 29.20 H INR 2.58 H Total Bilirubin 0.5 Direct Bilirubin 0.2 AST 60 H D ALT 84 H Alkaline Phosphatase 106 D Total Protein 6.6 Albumin 2.5 L Active Medications Generic Name Dose Route Start Last Admin Trade Name Freq PRN Reason Stop Dose Admin Acetaminophen 650 mg 04/03/18 12:52 04/04/18 09:28 Tylenol - PO 650 mg Q6H PRN Administration FEVER/PAIN SCALE 1-5 Aspirin 81 mg 04/04/18 10:00 04/05/18 09:46 Asa - PO 81 mg DAILY [facility] Administration Atorvastatin Calcium 20 mg 04/03/18 22:00 04/04/18 22:09 Lipitor - PO 20 mg HS [facility] Administration Cyanocobalamin 1,000 mcg 04/04/18 10:00 04/05/18 09:47 Vitamin B12 Injection - IM 1,000 mcg DAILY [facility] Administration Diltiazem HCl 90 mg 04/05/18 12:07 04/05/18 13:25 Cardizem - PO 90 mg TID [facility] Administration Docusate Sodium 100 mg 04/02/18 10:00 04/05/18 09:46 Colace - PO 100 mg DAILY [facility] Administration Iron Sucrose 200 mg/ Sodium 250 mls @ 250 mls/hr 04/05/18 10:00 04/05/18 10: 43 Chloride IVPB 04/06/18 10:59 250 mls/hr DAILY [facility] Administration Levothyroxine Sodium 50 mcg 04/04/18 07:00 04/05/18 06:34 Synthroid - PO 50 mcg DAILY@0700 [facility] Administration Metoprolol Tartrate 25 mg 04/03/18 22:00 04/05/18 09:46 Lopressor - PO 25 mg BID [facility] Administration Polyethylene Glycol 17 gm 04/04/18 10:00 04/05/18 09:46 Miralax (For Daily Use) - PO 17 grams DAILY [facility] Administration Warfarin Sodium 2.5 mg 04/05/18 18:00 Coumadin - PO SuTuThSa@1800 [facility] Warfarin Sodium 5 mg 04/06/18 18:00 Coumadin - PO MoWeFr@1800 [facility] ASSESSMENT/PLAN: PAD s/p stenting DVT Saddle embolism. anemia Patient came in with hemoglobin of 13 and now it has dropped to 10.3. This anemia can be because of blood loss as patient in AC. Patient stool for occult is pending. Irons studies done prior shows anemia of chronic disease and patient also have reverse A:G ratio. Patient vitamin b12 is 299 we will start the work up for vitamin b12 deficiency and we will order intrinsic factor, parietal cell antibody. We will also order immunoglobin, spep, serum keith and lambda and kappa light chain. Visit type - Emergency Visit Emergency Visit: Yes ED Registration Date: 03/26/18 Care time: The patient presented to the Emergency Department on the above date and was hospitalized for further evaluation of their emergent condition. - New Patient This patient is new to me today: No - Critical Care Critical Care patient: No
[2018-04-05] MEDS ORDERED: WARFARIN NA 2.5 MG TABLET (FP) PO SCH (18:00)
[2018-04-05] MEDS: ATORVASTATIN CA 20 MG TABLET (FP) PO SCH (21:30)
[2018-04-06] MEDS: dilTIAZem HCL 60 MG TABLET (FP) PO SCH ×3 (06:20→22:19)
[2018-04-06] MEDS: LEVOTHYROXINE NA 50 MCG TABLET (FP) PO SCH (06:20)
[2018-04-06 07:06] LABS: INR 2.21 (0.83-1.09)
[2018-04-06 07:07] LABS: ALBUMIN 2.7 g/dl (3.4-5.0); BILIRUBIN,DIRECT 0.2 mg/dL (0.0-0.2); BILIRUBIN,TOTAL 0.5 mg/dL (0.2-1.0); TOT PROT 6.8 g/dl (6.4-8.2)
--- NOTE | 2018-04-06 08:41 | DS ---
Physical Examination Vital Signs: Vital Signs Temperature 97.6 F 04/06/18 05:00 Pulse Rate 97 H 04/06/18 05:00 Respiratory Rate 19 04/06/18 05:00 Blood Pressure 116/70 04/06/18 05:00 O2 Sat by Pulse Oximetry (%) 99 04/05/18 21:00 Findings/Remarks: The patient is a 62 year old male with a PMH of A.Fib, WPW, hypothyroidism, DVT , morbid obesity, presented to the hospital complaining of severe right lower extremity that started early this morning. The patient states that the pain was 10/10 in severity, cramping in nature, located in the front of his right thigh. His right foot started to feel numb. He tried to walk it out without improvement and decided to come to ER. He was found to have thrombi in the distal right [employer] extending to the ostia of SFA and DFA, occlusive thrombi seen in right TP trunk with occlusions of the right peroneal artery and posterior tibial arteries followed by short segmental reconstitution with single vessel runoff to the foot provided. The patient had open embolectomy with angiogram of right lower extremity. He lost 600 cc of blood, given 1 unit of blood, hemodynamically stable admitted to ICU for monitoring. When I saw the patient, he didn't have any complaints, denied pain, chest pain, SOB. He admitted to have dyspnia on exertion for the past 5 days. Constitutional: Yes: Well Nourished, No Distress, Calm Cardiovascular: Yes: Regular Rate and Rhythm Respiratory: Yes: Regular Gastrointestinal: Yes: Normal Bowel Sounds, Soft, Abdomen, Obese Musculoskeletal: Yes: WNL Extremities: Yes: WNL Edema: No Peripheral Pulses WNL: Yes Wound/Incision: Yes: Dressing Dry and Intact (right groin) Neurological: Yes: Alert, Oriented Psychiatric: Yes: Alert, Oriented Labs: CBC, BMP 04/04/18 05:30 04/04/18 05:30 Discharge Summary Reason For Visit: DEEP VEIN THROMBOSIS,ATRIAL FIB,OCCLUSION OF ARTER Current Active Problems Anemia (Acute) Arterial occlusion (Acute) Atrial fibrillation (Acute) DVT (deep venous thrombosis) (Acute) Hypothyroid (Acute) Pulmonary embolism (Acute) Tachycardia (Acute) Transaminitis (Acute) Hospital Course: U/S venous doppler RLE: Findings consistent with deep venous thromboses involving the distal superficial femoral and popliteal vein. U/S arterial doppler RLE: Findings are highly suspicious for occlusion of the right common femoral, superficial femoral and posterior tibial artery with very attenuated venous like flow in the popliteal artery that may be from collaterals. Further evaluation is recommended CTA abdomen: Noncalcified thrombi seen in the distal right [employer] extending to the ostia of the SFA and DFA followed by reconstitution of flow. Occlusive thrombi seen in the right TP trunk with occlusions of the right peroneal artery and posterior tibial arteries followed by short segmental reconstitution with essentially single vessel runoff to the foot provided by anterior tibial artery. Widely patent left lower extremity arteries. Small bilateral fat-containing inguinal hernias. Mild descending colon diverticulosis. CTA Chest: Large saddle embolus bridging across the right and left main pulmonary artery as well as extending into the proximal and distal bifurcations of the right and left main pulmonary artery involving the right upper, middle and lower lobe segmental and subsegmental branches as well as the left upper and lower lobe segmental and subsegmental branches. U/S abdomen: Likely mild fatty infiltration of the liver. Differential diagnosis includes hepatocellular disease. Please correlate with liver enzymes. Simple cyst in the left hepatic lobe measuring 1.2 cm. No gallstones are identified. Operative Date: 03/26/18 Pre-Operative Diagnosis: RLE ischemia Operation: Open thrombectomy right iliac, sfa, Deep profunda artery , with angiogram of right lower extremity. Findings: Embolus removed. Post-Operative Diagnosis: Same as Pre-op Surgeon: Rafi Byrnes Condition: Stable - Instructions Diet, Activity, Other Instructions: Warfarin (Coumadin): MWF-2.5 mg, TThSaSu-5 mg Follow up with Pulmonary, Cardiology and Gastroenterology within 2 weeks Your INR needs to be checked in 1 week. Referrals: Mitesh Rodriguez MD, MD [Primary Care Provider] - Disposition: HOME - Home Medications Comprehensive Discharge Medication List: Ambulatory Orders Atorvastatin Ca [Lipitor] 20 mg PO DAILY 12/16/15 Levothyroxine [Synthroid -] 50 mcg PO DAILY 12/16/15 Aspirin 81 mg PO ASDIR 03/26/18 Metoprolol Tartrate [Lopressor -] 50 mg PO BID 03/26/18
[2018-04-06] MEDS: METOPROLOL TARTRATE 25 MG TABLET (FP) PO SCH ×2 (09:47→22:19)
[2018-04-06] MEDS: FERROUS SO4 325 MG TABLET (FP) PO SCH (09:47)
[2018-04-06] MEDS: ASPIRIN 81 MG CHEWABLE TABLETS PO SCH (09:47)
[2018-04-06] MEDS: CYANOCOBALAMIN (VITAMIN B-12) 1000 MCG/1 ML VIAL IM SCH (09:47)
[2018-04-06] MEDS: DOCUSATE SODIUM 100 MG CAPSULE (FP) PO SCH (09:47)
[2018-04-06] MEDS: POLYETHYLENE GLYCOL 3350 119 GM BTL PO SCH (09:48)
[2018-04-06] MEDS: IRON SUCROSE INJECTION 200 MG in SODIUM CHLORIDE 240 ML IVPB SCH (10:44)
--- NOTE | 2018-04-06 11:12 | PN ---
Progress Note (short form) - Note Progress Note: s: no sob cp dizzy palps. tele: afib, rate controlled o: Vital Signs Period Temp Pulse Resp BP Sys/Cooper Pulse Ox Last 24 Hr 97.6 F-98.9 F 87-103 16-20 105-116/64-76 99 Constitutional: Yes: No Distress, Obese Eyes: No: Sclera Icterus Respiratory: Yes: CTA Bilaterally. No: Accessory Muscle Use, Rales, Wheezes Gastrointestinal: Yes: Normal Bowel Sounds. No: Distention, Hepatomegaly, Palpable Mass, Tenderness Cardiovascular: Yes: Regular Rate and Rhythm JVD: No Heart Sounds: Yes: S1, S2. No: Gallop Murmur: No: Systolic Murmur, Diastolic Murmur Extremities: Yes: Cold (R). No: Cool, Cyanosis Edema: No Integumentary: No: Jaundice diaphoresis Neurological: Yes: Alert, Oriented (x3) Psychiatric: No: Agitated Current Medications Generic Name Dose Route Start Last Admin Trade Name Freq PRN Reason Stop Dose Admin Acetaminophen 650 mg 04/03/18 12:52 04/04/18 09:28 Tylenol - PO 650 mg Q6H PRN Administration FEVER/PAIN SCALE 1-5 Aspirin 81 mg 04/04/18 10:00 04/06/18 09:47 Asa - PO 81 mg DAILY PETE Administration Atorvastatin Calcium 20 mg 04/03/18 22:00 04/05/18 21:30 Lipitor - PO 20 mg HS PETE Administration Cyanocobalamin 1,000 mcg 04/04/18 10:00 04/06/18 09:47 Vitamin B12 Injection - IM 1,000 mcg DAILY PETE Administration Diltiazem HCl 90 mg 04/05/18 12:07 04/06/18 06:20 Cardizem - PO 90 mg TID PETE Administration Docusate Sodium 100 mg 04/02/18 10:00 04/06/18 09:47 Colace - PO 100 mg DAILY PETE Administration Ferrous Sulfate 325 mg 04/06/18 10:00 04/06/18 09:47 Feosol - PO 325 mg DAILY PETE Administration Levothyroxine Sodium 50 mcg 04/04/18 07:00 04/06/18 06:20 Synthroid - PO 50 mcg DAILY@0700 PETE Administration Metoprolol Tartrate 25 mg 04/03/18 22:00 04/06/18 09:47 Lopressor - PO 25 mg BID PETE Administration Polyethylene Glycol 17 gm 04/04/18 10:00 04/06/18 09:48 Miralax (For Daily Use) - PO 17 grams DAILY PETE Administration Warfarin Sodium 2.5 mg 04/05/18 18:00 04/05/18 18:46 Coumadin - PO 2.5 mg SuTuThSa@1800 PETE Administration Warfarin Sodium 5 mg 04/06/18 18:00 Coumadin - PO MoWeFr@1800 [facility]E CBC, BMP 04/04/18 05:30 04/04/18 05:30 Echo 03/30/18 here: TDS, nl LVEF, RV appears mildly dilated, cannot assess function Echo 03/29/18 here: tds, nl lvef, rv tds, kenia, no sig valve path Echo 02/12: afib; TDS; nl LV size and LVSF (EF at least 55%). RV tds: ? mild dilation, can't assess RVSF. ? nl LA size. valves WNL. mildly dilated ao root ( 3.9 cm) ECG: afib, no path q's; NSTWAs septal leads cta chest: large saddle pe a/p: persistent AF: - had not been on AC at home (CHADS-VASC 0 (no known h/o HTN)), poor follow up - s/p open thrombectomy of R iliac, SFA, deep profunda, and angiogram likely related to atheroembolic event from afib - remains rapid here, metopr up to 100 bid during admission, digoxin 0.25 added without improved rates and low BP noted - 04/02 metoprolol decreased from 100 BID to 50 mg BID with diltiazem 60 mb TID started and digoxin dc - 04/03 had low bps, rate control is improved. decreased metoprolol to 25 mg BID , cardizem 60 mg TID continued - 04/04 bp improving, rates 80s-90s at rest, 100s-1110s with walking, continue cardizem and metoprolol -04/05: some rvr with exertion, will increase dilt to 90 tid. cont tele. -04/06: rate controlled,continue current meds. - low likelihood to respond to DCCV attempt given longstanding persistent AF for > 2 yrs now. consider ablation evaluation as outpt DVT/PE: -saddle PE seen on cta, pt has no sxs or signs of RHF. Due to pt body habitus two echos were tds for rv strain. Echo images reviewed by our team--cannot definitively see evidence of RV failure/strain, no signif RV dilation on CT chest per d/w dr zabala. Clinically he has no signs RHF. IR thrombolysis deferred per consensus with I.R., critical care, and our team given risks likely >> benefits -also with distal SFV and popliteal vein thrombus on duplex, recent shoulder surgery -heme following. rec outpt hypercoag eval, malignancy rule-out +/- family member screening as indicated - will do echo with Definity microbubble contrast as outpatient, for more accurate assessment of both the LV and RV function (not available here) edema - improving since surgery per patient, weight decreasing as well hypotension: -sbp 90s. suspect med effect of high dose metoprolol, which has been decreased and diltiazem started -no signs sepsis or cardiogenic shock clinically -no signs RV failure clinically, with prohibitively poor echo images as above ( no signs RV strain based on CT scan size per reveiw with dr zabala) -observe clinically while adjust AVN blockers as above hypothyroidism: - on synthroid, manage per primary team cardiac bullard stable
--- NOTE | 2018-04-06 12:12 | PN ---
Progress Note (short form) - Note Progress Note: Patient seen and examined Some bleeding from incision sitein inguinal are. No chest pains or SoB. Minimal tachycardia with ambulation Last Vital Signs Temp Pulse Resp BP Pulse Ox 98.1 F 91 H 16 109/64 99 04/06/18 09:46 04/06/18 09:46 04/06/18 09:46 04/06/18 09:46 04/06/18 09:00 HEENT: ANAHI, EOM Intact Oropharynx: No thrush, No mucositis Cor: RSR, No murmurs, No gallops Lungs: Clear to P&A Abd: Soft, Normal bowel sounds, No organomegaly Ext:No significant edema Skin: No rashes, Integument intact CBC, BMP 04/04/18 05:30 04/04/18 05:30 Current Medications Generic Name Dose Route Start Last Admin Trade Name Freq PRN Reason Stop Dose Admin Acetaminophen 650 mg 04/03/18 12:52 04/04/18 09:28 Tylenol - PO 650 mg Q6H PRN Administration FEVER/PAIN SCALE 1-5 Aspirin 81 mg 04/04/18 10:00 04/06/18 09:47 Asa - PO 81 mg DAILY PETE Administration Atorvastatin Calcium 20 mg 04/03/18 22:00 04/05/18 21:30 Lipitor - PO 20 mg HS PETE Administration Cyanocobalamin 1,000 mcg 04/04/18 10:00 04/06/18 09:47 Vitamin B12 Injection - IM 1,000 mcg DAILY PETE Administration Diltiazem HCl 90 mg 04/05/18 12:07 04/06/18 06:20 Cardizem - PO 90 mg TID PETE Administration Docusate Sodium 100 mg 04/02/18 10:00 04/06/18 09:47 Colace - PO 100 mg DAILY PETE Administration Ferrous Sulfate 325 mg 04/06/18 10:00 04/06/18 09:47 Feosol - PO 325 mg DAILY PETE Administration Levothyroxine Sodium 50 mcg 04/04/18 07:00 04/06/18 06:20 Synthroid - PO 50 mcg DAILY@0700 PETE Administration Metoprolol Tartrate 25 mg 04/03/18 22:00 04/06/18 09:47 Lopressor - PO 25 mg BID PETE Administration Polyethylene Glycol 17 gm 04/04/18 10:00 04/06/18 09:48 Miralax (For Daily Use) - PO 17 grams DAILY PETE Administration Warfarin Sodium 2.5 mg 04/05/18 18:00 04/05/18 18:46 Coumadin - PO 2.5 mg SuTuThSa@1800 PETE Administration Warfarin Sodium 5 mg 04/06/18 18:00 Coumadin - PO MoWeFr@1800 [facility] Impression: PAD S/P stent DVT Saddle embolism B-12 deficiency Plan: out patient thrombophilia work up. Plan
--- NOTE | 2018-04-06 14:42 | PN ---
Progress Note (short form) - Note Progress Note: Overall feels better. No shortness of breath, chest pain or palpitations. OBJECTIVE: Intake & Output 04/03/18 04/04/18 04/05/18 04/06/18 23:59 23:59 23:59 23:59 Intake Total 1310 1680 1520 600 Output Total 1700 600 750 Balance -390 1680 920 -150 Weight 296 lb 11.2 oz 303 lb 12.8 oz Last Vital Signs Temp Pulse Resp BP Pulse Ox 98.1 F 91 H 16 109/64 99 04/06/18 09:46 04/06/18 09:46 04/06/18 09:46 04/06/18 09:46 04/06/18 09:00 Active Medications Acetaminophen (Tylenol -) 650 mg PO Q6H PRN PRN Reason: FEVER/PAIN SCALE 1-5 Last Admin: 04/04/18 09:28 Dose: 650 mg Aspirin (Asa -) 81 mg PO DAILY [facility] Last Admin: 04/06/18 09:47 Dose: 81 mg Atorvastatin Calcium (Lipitor -) 20 mg PO HS [facility] Last Admin: 04/05/18 21:30 Dose: 20 mg Cyanocobalamin (Vitamin B12 Injection -) 1,000 mcg IM DAILY [facility] Last Admin: 04/06/18 09:47 Dose: 1,000 mcg Diltiazem HCl (Cardizem -) 90 mg PO TID [facility] Last Admin: 04/06/18 13:38 Dose: 90 mg Docusate Sodium (Colace -) 100 mg PO DAILY [facility] Last Admin: 04/06/18 09:47 Dose: 100 mg Ferrous Sulfate (Feosol -) 325 mg PO DAILY [facility] Last Admin: 04/06/18 09:47 Dose: 325 mg Levothyroxine Sodium (Synthroid -) 50 mcg PO DAILY@0700 [facility] Last Admin: 04/06/18 06:20 Dose: 50 mcg Metoprolol Tartrate (Lopressor -) 25 mg PO BID [facility] Last Admin: 04/06/18 09:47 Dose: 25 mg Polyethylene Glycol (Miralax (For Daily Use) -) 17 gm PO DAILY [facility] Last Admin: 04/06/18 09:48 Dose: 17 grams Warfarin Sodium (Coumadin -) 2.5 mg PO SuTuThSa@1800 [facility] Last Admin: 04/05/18 18:46 Dose: 2.5 mg Warfarin Sodium (Coumadin -) 5 mg PO MoWeFr@1800 [facility]E Gen: NAD at rest Heart: Irregular Lung: decreased breath sounds at the bases Abd: soft, nontender Ext: trace edema Laboratory Results - last 24 hr 04/06/18 04/06/18 05:30 05:30 PT with INR 25.00 H INR 2.21 H Total Bilirubin 0.5 Direct Bilirubin 0.2 AST 52 H ALT 81 H Alkaline Phosphatase 105 Total Protein 6.8 Albumin 2.7 L ASSESSMENT AND PLAN: PAD/R iliac/SFA/deep profunda thrombus S/P Open thrombectomy Acute Pulmonary Emboli RLE DVT Atrial Fibrillation with RVR Hypothyroidism High clinical suspicion for OSAS - Coumadin based on INR values, Range 2-3 - rate control, Beta erlinda and CCB - O2 to keep SpO2 >90% - Will need formal sleep workup for OSAS - No Pulmonary contraindication for D/C home Dr Horta
[2018-04-06] MEDS ORDERED: WARFARIN NA 5 MG TABLET (UD) PO SCH (18:00)
[2018-04-06] MEDS: ATORVASTATIN CA 20 MG TABLET (FP) PO SCH (22:19)
[2018-04-07 06:06] LABS: IGA IMMUNOGLOBULIN 379 mg/dL (61-437); IGG IMMUNOGLOBULIN 1337 mg/dL (700-1600); IGM IMMUNOGLOBULIN 84 mg/dL (20-172)
--- NOTE | 2018-04-07 06:08 | PN ---
Progress Note, Physician Chief Complaint: DVT PE History of Present Illness: NAD Son at bedside Saddle PE. S/P thrombectomy for DVT Seen by Hemetology On tele monitoring-afib rate controlled Denies any SOB, chest pain or any other associated symptoms Therapeutic INR Reached therapeutic INR 2-3 with 22.5 mg of warfarin in 3 days- would likely be okay with 5 mg MWF and 2.5 mg TThSaSu - Current Medication List Current Medications: Active Medications Acetaminophen (Tylenol -) 650 mg PO Q6H PRN PRN Reason: FEVER/PAIN SCALE 1-5 Last Admin: 04/04/18 09:28 Dose: 650 mg Aspirin (Asa -) 81 mg PO DAILY [facility] Last Admin: 04/06/18 09:47 Dose: 81 mg Atorvastatin Calcium (Lipitor -) 20 mg PO HS [facility] Last Admin: 04/06/18 22:19 Dose: 20 mg Cyanocobalamin (Vitamin B12 Injection -) 1,000 mcg IM DAILY [facility] Last Admin: 04/06/18 09:47 Dose: 1,000 mcg Diltiazem HCl (Cardizem -) 90 mg PO TID [facility] Last Admin: 04/06/18 22:19 Dose: 90 mg Docusate Sodium (Colace -) 100 mg PO DAILY [facility] Last Admin: 04/06/18 09:47 Dose: 100 mg Ferrous Sulfate (Feosol -) 325 mg PO DAILY [facility] Last Admin: 04/06/18 09:47 Dose: 325 mg Levothyroxine Sodium (Synthroid -) 50 mcg PO DAILY@0700 [facility] Last Admin: 04/06/18 06:20 Dose: 50 mcg Metoprolol Tartrate (Lopressor -) 25 mg PO BID [facility] Last Admin: 04/06/18 22:19 Dose: 25 mg Polyethylene Glycol (Miralax (For Daily Use) -) 17 gm PO DAILY [facility] Last Admin: 04/06/18 09:48 Dose: 17 grams Warfarin Sodium (Coumadin -) 2.5 mg PO SuTuThSa@1800 [facility] Last Admin: 04/05/18 18:46 Dose: 2.5 mg Warfarin Sodium (Coumadin -) 5 mg PO MoWeFr@1800 [facility] Last Admin: 04/06/18 17:03 Dose: 5 mg - Objective Vital Signs: Vital Signs Temperature 98 F 04/07/18 01:00 Pulse Rate 84 04/07/18 01:00 Respiratory Rate 20 04/07/18 01:00 Blood Pressure 93/65 04/07/18 01:00 O2 Sat by Pulse Oximetry (%) 98 04/06/18 21:00 Constitutional: Yes: Well Nourished, No Distress, Calm Cardiovascular: Yes: Pulse Irregular Respiratory: Yes: Regular Gastrointestinal: Yes: Normal Bowel Sounds, Soft, Abdomen, Obese Musculoskeletal: Yes: WNL Extremities: Yes: WNL Edema: No Peripheral Pulses WNL: Yes Wound/Incision: Yes: Dressing Dry and Intact Neurological: Yes: Alert, Oriented Psychiatric: Yes: Alert, Oriented Labs: CBC, BMP 04/04/18 05:30 04/04/18 05:30 INR, PTT INR 2.21 (0.83-1.09) H 04/06/18 05:30 Problem List - Problems (1) Atrial fibrillation Assessment/Plan: -Chronic -HR went up to 150's this AM while pt was walking in the hallway -Diltiazem increased to 90 mg TID -Cardiology on board -Restart Warfarin @ [facility] 5 mg and all other days 2.5 mg -daily INR's Code(s): I48.91 - UNSPECIFIED ATRIAL FIBRILLATION Qualifiers: Atrial fibrillation type: unspecified Qualified Code(s): I48.91 - Unspecified atrial fibrillation (2) DVT (deep venous thrombosis) Assessment/Plan: -Provoked 2/2 to travel and recent major shoulder surgery -S/P thrombectomy -restart warfarin -Daily INR checks Code(s): I82.409 - ACUTE EMBOLISM AND THOMBOS UNSP DEEP VN UNSP LOWER EXTREMITY Qualifiers: DVT location: lower extremity Affected thrombotic vein of extremity: unspecified vein of extremity Chronicity: acute Laterality: right Qualified Code(s): I82.401 - Acute embolism and thrombosis of unspecified deep veins of right lower extremity (3) Pulmonary embolism Assessment/Plan: -saddle PE seen on Chest CTA -Echo done with no signs of RHF -Seen by Pulmonary and Cardiology -Hematology on board Code(s): I26.99 - OTHER PULMONARY EMBOLISM WITHOUT ACUTE COR PULMONALE (4) Anemia Assessment/Plan: -gradual drop -Stool OB pending -Iron % and B 12 low, would replenish -Venofer + B 12 injections Code(s): D64.9 - ANEMIA, UNSPECIFIED Assessment/Plan see problem list Dispo: possible d/c home with VNS
[2018-04-07] MEDS: LEVOTHYROXINE NA 50 MCG TABLET (FP) PO SCH (06:24)
[2018-04-07] MEDS: dilTIAZem HCL 60 MG TABLET (FP) PO SCH (06:24)
[2018-04-07 07:47] LABS: ALBUMIN 2.8 g/dl (3.4-5.0); BILIRUBIN,DIRECT 0.2 mg/dL (0.0-0.2)
[2018-04-07 07:49] LABS: BILIRUBIN,TOTAL 0.5 mg/dL (0.2-1.0)
[2018-04-07 08:02] LABS: INR 2.38 (0.83-1.09); PROTHROMBIN TIME (PATIENT) 26.9 SEC (9.7-13.0)
[2018-04-07] MEDS: CYANOCOBALAMIN (VITAMIN B-12) 1000 MCG/1 ML VIAL IM SCH (09:54)
[2018-04-07] MEDS: ASPIRIN 81 MG CHEWABLE TABLETS PO SCH (09:54)
[2018-04-07] MEDS: DOCUSATE SODIUM 100 MG CAPSULE (FP) PO SCH (09:54)
[2018-04-07] MEDS: FERROUS SO4 325 MG TABLET (FP) PO SCH (09:54)
[2018-04-07] MEDS: METOPROLOL TARTRATE 25 MG TABLET (FP) PO SCH (09:54)
--- NOTE | 2018-04-07 09:58 | PN ---
Progress Note (short form) - Note Progress Note: s: no sob cp dizzy palps. tele: afib, rate controlled o: Vital Signs Period Temp Pulse Resp BP Sys/Cooper Pulse Ox Last 24 Hr 98 F-98.8 F 84-96 18-20 93-121/62-70 98 Constitutional: Yes: No Distress, Obese Eyes: No: Sclera Icterus Respiratory: Yes: CTA Bilaterally. No: Accessory Muscle Use, Rales, Wheezes Gastrointestinal: Yes: Normal Bowel Sounds. No: Distention, Hepatomegaly, Palpable Mass, Tenderness Cardiovascular: Yes: Regular Rate and Rhythm JVD: No Heart Sounds: Yes: S1, S2. No: Gallop Murmur: No: Systolic Murmur, Diastolic Murmur Extremities: Yes: Cold (R). No: Cool, Cyanosis Edema: No Integumentary: No: Jaundice diaphoresis Neurological: Yes: Alert, Oriented (x3) Psychiatric: No: Agitated Current Medications Generic Name Dose Route Start Last Admin Trade Name Freq PRN Reason Stop Dose Admin Acetaminophen 650 mg 04/03/18 12:52 04/04/18 09:28 Tylenol - PO 650 mg Q6H PRN Administration FEVER/PAIN SCALE 1-5 Aspirin 81 mg 04/04/18 10:00 04/07/18 09:54 Asa - PO 81 mg DAILY [facility]E Administration Atorvastatin Calcium 20 mg 04/03/18 22:00 04/06/18 22:19 Lipitor - PO 20 mg HS PETE Administration Cyanocobalamin 1,000 mcg 04/04/18 10:00 04/07/18 09:54 Vitamin B12 Injection - IM 1,000 mcg DAILY PETE Administration Diltiazem HCl 90 mg 04/05/18 12:07 04/07/18 06:24 Cardizem - PO 90 mg TID PETE Administration Docusate Sodium 100 mg 04/02/18 10:00 04/07/18 09:54 Colace - PO 100 mg DAILY PETE Administration Ferrous Sulfate 325 mg 04/06/18 10:00 04/07/18 09:54 Feosol - PO 325 mg DAILY PETE Administration Levothyroxine Sodium 50 mcg 04/04/18 07:00 04/07/18 06:24 Synthroid - PO 50 mcg DAILY@0700 PETE Administration Metoprolol Tartrate 25 mg 04/03/18 22:00 04/07/18 09:54 Lopressor - PO 25 mg BID PETE Administration Polyethylene Glycol 17 gm 04/04/18 10:00 04/06/18 09:48 Miralax (For Daily Use) - PO 17 grams DAILY PETE Administration Warfarin Sodium 2.5 mg 04/05/18 18:00 04/05/18 18:46 Coumadin - PO 2.5 mg SuTuThSa@1800 PETE Administration Warfarin Sodium 5 mg 04/06/18 18:00 04/06/18 17:03 Coumadin - PO 5 mg MoWeFr@1800 PETE Administration CBC, BMP 04/04/18 05:30 04/04/18 05:30 Echo 03/30/18 here: TDS, nl LVEF, RV appears mildly dilated, cannot assess function Echo 03/29/18 here: tds, nl lvef, rv tds, kenia, no sig valve path Echo 02/12: afib; TDS; nl LV size and LVSF (EF at least 55%). RV tds: ? mild dilation, can't assess RVSF. ? nl LA size. valves WNL. mildly dilated ao root ( 3.9 cm) ECG: afib, no path q's; NSTWAs septal leads cta chest: large saddle pe a/p: persistent AF: - had not been on AC at home (CHADS-VASC 0 (no known h/o HTN)), poor follow up - s/p open thrombectomy of R iliac, SFA, deep profunda, and angiogram likely related to atheroembolic event from afib - remains rapid here, metopr up to 100 bid during admission, digoxin 0.25 added without improved rates and low BP noted - 04/02 metoprolol decreased from 100 BID to 50 mg BID with diltiazem 60 mb TID started and digoxin dc - 04/03 had low bps, rate control is improved. decreased metoprolol to 25 mg BID , cardizem 60 mg TID continued - 04/04 bp improving, rates 80s-90s at rest, 100s-1110s with walking, continue cardizem and metoprolol -04/05: some rvr with exertion, will increase dilt to 90 tid. cont tele. -04/06-: rate controlled,continue current meds. - low likelihood to respond to DCCV attempt given longstanding persistent AF for > 2 yrs now. consider ablation evaluation as outpt DVT/PE: -saddle PE seen on cta, pt has no sxs or signs of RHF. Due to pt body habitus two echos were tds for rv strain. Echo images reviewed by our team--cannot definitively see evidence of RV failure/strain, no signif RV dilation on CT chest per d/w dr zabala. Clinically he has no signs RHF. IR thrombolysis deferred per consensus with I.R., critical care, and our team given risks likely >> benefits -also with distal SFV and popliteal vein thrombus on duplex, recent shoulder surgery -heme following. rec outpt hypercoag eval, malignancy rule-out +/- family member screening as indicated - will do echo with Definity microbubble contrast as outpatient, for more accurate assessment of both the LV and RV function (not available here) edema - improving since surgery per patient, weight decreasing as well hypotension: -sbp 90s. suspect med effect of high dose metoprolol, which has been decreased and diltiazem started -no signs sepsis or cardiogenic shock clinically -no signs RV failure clinically, with prohibitively poor echo images as above ( no signs RV strain based on CT scan size per reveiw with dr zabala) -observe clinically while adjust AVN blockers as above hypothyroidism: - on synthroid, manage per primary team cardiac bullard stable for dc
[2018-04-07 10:12] VITALS: BP 98/54; PULSE 80; TEMP 97.8
[2018-04-07] MEDS: POLYETHYLENE GLYCOL 3350 119 GM BTL PO SCH (11:16)
--- NOTE | 2018-04-07 11:44 | PN ---
Progress Note (short form) - Note Progress Note: Overall feels better. No shortness of breath, chest pain or palpitations. Oozing in groin better. OBJECTIVE: Intake & Output 04/04/18 04/05/18 04/06/18 04/07/18 23:59 23:59 23:59 23:59 Intake Total 1680 1520 1730 120 Output Total 600 1490 400 Balance 1680 920 240 -280 Weight 296 lb 11.2 oz 303 lb 12.8 oz Last Vital Signs Temp Pulse Resp BP Pulse Ox 97.8 F 80 18 98/54 98 04/07/18 10:00 04/07/18 10:00 04/07/18 10:00 04/07/18 10:00 04/06/18 21:00 Active Medications Acetaminophen (Tylenol -) 650 mg PO Q6H PRN PRN Reason: FEVER/PAIN SCALE 1-5 Last Admin: 04/04/18 09:28 Dose: 650 mg Aspirin (Asa -) 81 mg PO DAILY [facility] Last Admin: 04/07/18 09:54 Dose: 81 mg Atorvastatin Calcium (Lipitor -) 20 mg PO HS [facility] Last Admin: 04/06/18 22:19 Dose: 20 mg Cyanocobalamin (Vitamin B12 Injection -) 1,000 mcg IM DAILY [facility] Last Admin: 04/07/18 09:54 Dose: 1,000 mcg Diltiazem HCl (Cardizem -) 90 mg PO TID [facility] Last Admin: 04/07/18 06:24 Dose: 90 mg Docusate Sodium (Colace -) 100 mg PO DAILY [facility] Last Admin: 04/07/18 09:54 Dose: 100 mg Ferrous Sulfate (Feosol -) 325 mg PO DAILY [facility] Last Admin: 04/07/18 09:54 Dose: 325 mg Levothyroxine Sodium (Synthroid -) 50 mcg PO DAILY@0700 [facility] Last Admin: 04/07/18 06:24 Dose: 50 mcg Metoprolol Tartrate (Lopressor -) 25 mg PO BID [facility] Last Admin: 04/07/18 09:54 Dose: 25 mg Polyethylene Glycol (Miralax (For Daily Use) -) 17 gm PO DAILY [facility] Last Admin: 04/07/18 11:16 Dose: Not Given Warfarin Sodium (Coumadin -) 2.5 mg PO [email or web address]@1800 [facility] Last Admin: 04/05/18 18:46 Dose: 2.5 mg Warfarin Sodium (Coumadin -) 5 mg PO MoWeFr@1800 [facility]E Last Admin: 04/06/18 17:03 Dose: 5 mg Gen: NAD at rest Heart: Irregular Lung: decreased breath sounds at the bases Abd: soft, nontender Ext: trace edema Laboratory Results - last 24 hr 04/06/18 04/07/18 04/07/18 05:30 06:10 07:25 PT with INR 26.90 H INR 2.38 H Total Bilirubin 0.5 Direct Bilirubin 0.2 AST 48 H ALT 80 H Alkaline Phosphatase 101 Total Protein 7.0 Albumin 2.8 L IgG 1337 IgA 379 IgM 84 ASSESSMENT AND PLAN: PAD/R iliac/SFA/deep profunda thrombus S/P Open thrombectomy Acute Pulmonary Emboli RLE DVT Atrial Fibrillation with RVR Hypothyroidism High clinical suspicion for OSAS - Coumadin based on INR values, Range 2-3 - rate control, Beta erlinda and CCB - O2 to keep SpO2 >90% - Will need formal sleep workup for OSAS - No Pulmonary contraindication for D/C home Dr Horta
[2018-04-07 16:13] LABS: FREE KAPPA,SERUM 34.4 mg/L (3.3-19.4)
== END 2018-04-07 14:01 | disposition home health service (06) | DRG 270 ==
LOC: JER 08:37 → JERFT 08:37 → JERBED 12:37 → J4W 15:01 → JICU 22:31 → J4W 04-03 17:02
PROVIDERS: ADMIT Family Medicine; ATTEND Family Medicine
PROC: 04CC0ZZ Extirpation of Matter from Right Common Iliac Artery, Open Approach (ICD-10-PCS; 2018-03-26)
PROC: B40FYZZ Plain Radiography of Right Lower Extremity Arteries using Other Contrast (ICD-10-PCS; 2018-03-26)
PROC: 03HY32Z Insertion of Monitoring Device into Upper Artery, Percutaneous Approach (ICD-10-PCS; 2018-03-26)
PROC: 30233N1 Transfusion of Nonautologous Red Blood Cells into Peripheral Vein, Percutaneous Approach (ICD-10-PCS; 2018-03-26)
PROC: 04CK0ZZ Extirpation of Matter from Right Femoral Artery, Open Approach (ICD-10-PCS; principal; 2018-03-26 18:00)
DX: I82.411 Acute embolism and thrombosis of right femoral vein (principal); I26.99 Other pulmonary embolism without acute cor pulmonale; I26.02 Saddle embolus of pulmonary artery with acute cor pulmonale; Z68.41 Body mass index [BMI] 40.0-44.9, adult; I47.2 Ventricular tachycardia; E03.9 Hypothyroidism, unspecified; I70.90 Unspecified atherosclerosis; I48.91 Unspecified atrial fibrillation; E66.01 Morbid (severe) obesity due to excess calories; I45.6 Pre-excitation syndrome; G47.33 Obstructive sleep apnea (adult) (pediatric); E78.5 Hyperlipidemia, unspecified; I95.9 Hypotension, unspecified; F17.210 Nicotine dependence, cigarettes, uncomplicated; R74.0 Nonspecific elevation of levels of transaminase and lactic acid dehydrogenase [LDH]; D63.8 Anemia in other chronic diseases classified elsewhere; K76.0 Fatty (change of) liver, not elsewhere classified; K76.89 Other specified diseases of liver; E53.8 Deficiency of other specified B group vitamins
CPT/HCPCS: 36415; 71045-TC-FY; 71275-TC; 75635-TC; 76000-TC-FY; 76705-TC; 80048; 80053; 80061; 80076; 82550; 82607; 82728; 82784; 83036; 83090; 83516; 83540; 83550; 83721; 83735; 83880; 83883; 84100; 84155; 84165; 84443; 84484; 85025; 85027; 85610; 85730; 86334; 86340; 86850; 86900; 86901; 86922; 88304-TC; 93005; 93010; 93306-TC; 93926-TC; 93971-TC; 94760; 97116-GP; 97161-GP; 99283-25; J1644; J1756; P9038; P9058

== ENCOUNTER 2023-08-12 10:25 | Emergency (ER) | payer OTHER, BC ==
[2023-08-12 10:40] VITALS: TEMP 98.3; BMI 41.8
[2023-08-12 11:41] LABS: BASO % 0.4 % (0-2.0); EOS % 0.4 % (0-4.5); HEMATOCRIT 43.4 % (35.4-49); HEMOGLOBIN 14.6 GM/dL (11.7-16.9); MCH 31.9 pg (25.7-33.7); MCHC 33.7 g/dl (32.0-35.9); MEAN CELL VOLUME 94.8 fl (80-96); MEAN PLT VOLUME 8.1 fl (7.5-11.1); MONO % 5.7 % (3.8-10.2); NEUT % 82.5 % (42.8-82.8); PLATELET COUNT 248 10^3/uL (134-434); RBC 4.58 M/mm3 (4.00-5.60); RDW 13.9 % (11.9-15.9); WHITE BLOOD COUNT 7.3 K/mm3 (4.0-10.0)
[2023-08-12 11:48] LABS: INR 3.14 (0.83-1.09)
[2023-08-12 11:50] LABS: ACTIVATED PTT 47.1 SECONDS (25.2-36.5)
[2023-08-12 12:02] VITALS: BP 109/75; PULSE 93; RESP 18
== END 2023-08-12 13:28 | disposition home or self-care (01) ==
LOC: JER 10:25
DX: R04.0 Epistaxis (principal); I48.11 Longstanding persistent atrial fibrillation; Z79.01 Long term (current) use of anticoagulants
CPT/HCPCS: 36415; 85025; 85610; 85730; 93005; 93010; 99284-25